=== PATIENT | female | born 1930 | race American Indian/Alaskan Native ===

== ENCOUNTER 2019-03-06 05:34 | Inpatient (IN) | payer MEDICARE ==
[2019-03-06] MEDS ORDERED: NACL 0.9% 1000 ML 0 ML ONE (09:31)
--- NOTE | 2019-03-06 09:59 | Emergency Department Report ---
ED General Adult HPI - General Chief complaint: Wound/Laceration Stated complaint: BEDSORES Time Seen by Provider: 03/06/19 08:33 Source: family, EMS Mode of arrival: Stretcher Limitations: Physical Limitation - History of Present Illness Initial comments: Patient presents to the emergency department for evaluation of bed sores. The patient's daughter states that mother's bed sores are becoming increasingly worse and was told to come to the emergency department for evaluation by their physician. Patient complains of pain at the area of the decubitus ulcers. Per the patient's daughter there is drainage from the decubitus ulcers -: Gradual Location: buttocks Radiation: non-radiation Severity scale (0 -10): 5 Quality: aching Consistency: constant Improves with: none Worsens with: none Associated Symptoms: denies other symptoms Treatments Prior to Arrival: none - Related Data Allergies Allergy/AdvReac Type Severity Reaction Status Date / Time No Known Allergies Allergy Verified 03/06/19 05:36 ED Review of Systems ROS: Stated complaint: BEDSORES Other details as noted in HPI Constitutional: denies: chills, fever Eyes: denies: eye pain, eye discharge, vision change ENT: denies: ear pain, throat pain Respiratory: denies: cough, shortness of breath, wheezing Cardiovascular: denies: chest pain, palpitations Endocrine: no symptoms reported Gastrointestinal: denies: abdominal pain, nausea, diarrhea Genitourinary: denies: urgency, dysuria, discharge Musculoskeletal: denies: back pain, joint swelling, arthralgia Skin: lesions. denies: rash Neurological: denies: headache, weakness, paresthesias Psychiatric: denies: anxiety, depression Hematological/Lymphatic: denies: easy bleeding, easy bruising ED Past Medical Hx - Past Medical History Previous Medical History?: Yes Hx Arthritis: Yes Hx Seizures: Yes Hx Dementia: Yes Additional medical history: Anxiety - Surgical History Past Surgical History?: Yes Additional Surgical History: Hip replacement. Knee replacement. Gal bladder removed - Social History Smoking Status: Never Smoker Substance Use Type: None ED Physical Exam - General Limitations: Physical Limitation General appearance: alert, in no apparent distress - Head Head exam: Present: atraumatic, normocephalic - Eye Eye exam: Present: normal appearance - ENT ENT exam: Present: mucous membranes moist - Neck Neck exam: Present: normal inspection - Respiratory Respiratory exam: Present: normal lung sounds bilaterally. Absent: respiratory distress - Cardiovascular Cardiovascular Exam: Present: regular rate, normal rhythm. Absent: systolic murmur, diastolic murmur, rubs, gallop - GI/Abdominal GI/Abdominal exam: Present: soft, normal bowel sounds. Absent: distended, tenderness - Rectal Rectal exam: Present: other (stage II decubitus ulcers of the sacrum with mild surrounding erythema) - Extremities Exam Extremities exam: Present: normal inspection - Back Exam Back exam: Present: normal inspection - Neurological Exam Neurological exam: Present: alert, oriented X3 - Psychiatric Psychiatric exam: Present: normal affect, normal mood - Skin Skin exam: Present: warm, dry. Absent: rash ED Course Vital Signs 03/06/19 03/06/19 03/06/19 05:58 07:15 10:55 Temperature 98.2 F Pulse Rate 79 80 Respiratory 16 16 16 Rate Blood Pressure 107/60 104/45 [Left] O2 Sat by Pulse 99 100 100 Oximetry ED Medical Decision Making - Lab Data Result diagrams: 03/06/19 09:44 03/06/19 09:44 Lab Results 03/06/19 03/06/19 03/06/19 Range/Units 09:44 09:44 09:44 WBC 15.4 H (4.5-11.0) K/mm3 RBC 4.00 (3.65-5.03) M/mm3 Hgb 11.1 (10.1-14.3) gm/dl Hct 33.8 (30.3-42.9) % MCV 85 (79-97) fl MCH 28 (28-32) pg MCHC 33 (30-34) % RDW 13.5 (13.2-15.2) % Plt Count 329 (140-440) K/mm3 Add Manual Diff Complete Total Counted 100 Seg Neuts % (Manual) 77.0 H (40.0-70.0) % Band Neutrophils % 0 % Lymphocytes % (Manual) 18.0 (13.4-35.0) % Reactive Lymphs % (Man) 0 % Monocytes % (Manual) 3.0 (0.0-7.3) % Eosinophils % (Manual) 2.0 (0.0-4.3) % Basophils % (Manual) 0 (0.0-1.8) % Metamyelocytes % 0 % Myelocytes % 0 % Promyelocytes % 0 % Blast Cells % 0 % Nucleated RBC % Not Reportable Seg Neutrophils # Man 11.9 H (1.8-7.7) K/mm3 Band Neutrophils # 0.0 K/mm3 Lymphocytes # (Manual) 2.8 (1.2-5.4) K/mm3 Abs React Lymphs (Man) 0.0 K/mm3 Monocytes # (Manual) 0.5 (0.0-0.8) K/mm3 Eosinophils # (Manual) 0.3 (0.0-0.4) K/mm3 Basophils # (Manual) 0.0 (0.0-0.1) K/mm3 Metamyelocytes # 0.0 K/mm3 Myelocytes # 0.0 K/mm3 Promyelocytes # 0.0 K/mm3 Blast Cells # 0.0 K/mm3 WBC Morphology Not Reportable Hypersegmented Neuts Not Reportable Hyposegmented Neuts Not Reportable Hypogranular Neuts Not Reportable Smudge Cells Not Reportable Toxic Granulation Not Reportable Toxic Vacuolation Not Reportable Dohle Bodies Not Reportable Pelger-Huet Anomaly Not Reportable Edy Rods Not Reportable Platelet Estimate Consistent w auto Clumped Platelets Not Reportable Plt Clumps, EDTA Not Reportable Large Platelets Rare Giant Platelets Not Reportable Platelet Satelliting Not Reportable Plt Morphology Comment Not Reportable RBC Morphology Normal Dimorphic RBCs Not Reportable Polychromasia Not Reportable Hypochromasia Not Reportable Poikilocytosis Not Reportable Anisocytosis Not Reportable Microcytosis Not Reportable Macrocytosis Not Reportable Spherocytes Not Reportable Pappenheimer Bodies Not Reportable Sickle Cells Not Reportable Target Cells Not Reportable Tear Drop Cells Not Reportable Ovalocytes Not Reportable Helmet Cells Not Reportable [place] Bodies Not Reportable [place] Rings Not Reportable Devin Cells Not Reportable Bite Cells Not Reportable Crenated Cell Not Reportable Elliptocytes Not Reportable Acanthocytes (Spur) Not Reportable Rouleaux Not Reportable Hemoglobin C Crystals Not Reportable Schistocytes Not Reportable Malaria parasites Not Reportable Jose Alberto Bodies Not Reportable Hem Pathologist Commnt No APTT 25.2 (24.2-36.6) Sec. Sodium 135 L (137-145) mmol/L Potassium 3.6 (3.6-5.0) mmol/L Chloride 97.7 L (98-107) mmol/L Carbon Dioxide 26 (22-30) mmol/L Anion Gap 15 mmol/L BUN 8 (7-17) mg/dL Creatinine < 0.2 L (0.7-1.2) mg/dL Estimated GFR > 60 ml/min BUN/Creatinine Ratio 40 % Glucose 114 H (65-100) mg/dL Lactic Acid (0.7-2.0) mmol/L Calcium 8.8 (8.4-10.2) mg/dL Total Bilirubin 0.20 (0.1-1.2) mg/dL AST 14 (5-40) units/L ALT 7 (7-56) units/L Alkaline Phosphatase 62 (35-129) units/L Total Protein 6.6 (6.3-8.2) g/dL Albumin 2.6 L (3.9-5) g/dL Albumin/Globulin Ratio 0.7 % Urine Color (Yellow) Urine Turbidity (Clear) Urine pH (5.0-7.0) Ur Specific [place] (1.003-1.030) Urine Protein (Negative) mg/dL Urine Glucose (UA) (Negative) mg/dL Urine Ketones (Negative) mg/dL Urine Blood (Negative) Urine Nitrite (Negative) Urine Bilirubin (Negative) Urine Urobilinogen (<2.0) mg/dL Ur Leukocyte Esterase (Negative) Urine WBC (Auto) (0.0-6.0) /HPF Urine RBC (Auto) (0.0-6.0) /HPF U Epithel Cells (Auto) (0-13.0) /HPF Urine Bacteria (Auto) (Negative) /HPF Triple Phos Crystals 03/06/19 03/06/19 Range/Units 09:44 10:32 WBC (4.5-11.0) K/mm3 RBC (3.65-5.03) M/mm3 Hgb (10.1-14.3) gm/dl Hct (30.3-42.9) % MCV (79-97) fl MCH (28-32) pg MCHC (30-34) % RDW (13.2-15.2) % Plt Count (140-440) K/mm3 Add Manual Diff Total Counted Seg Neuts % (Manual) (40.0-70.0) % Band Neutrophils % % Lymphocytes % (Manual) (13.4-35.0) % Reactive Lymphs % (Man) % Monocytes % (Manual) (0.0-7.3) % Eosinophils % (Manual) (0.0-4.3) % Basophils % (Manual) (0.0-1.8) % Metamyelocytes % % Myelocytes % % Promyelocytes % % Blast Cells % % Nucleated RBC % Seg Neutrophils # Man (1.8-7.7) K/mm3 Band Neutrophils # K/mm3 Lymphocytes # (Manual) (1.2-5.4) K/mm3 Abs React Lymphs (Man) K/mm3 Monocytes # (Manual) (0.0-0.8) K/mm3 Eosinophils # (Manual) (0.0-0.4) K/mm3 Basophils # (Manual) (0.0-0.1) K/mm3 Metamyelocytes # K/mm3 Myelocytes # K/mm3 Promyelocytes # K/mm3 Blast Cells # K/mm3 WBC Morphology Hypersegmented Neuts Hyposegmented Neuts Hypogranular Neuts Smudge Cells Toxic Granulation Toxic Vacuolation Dohle Bodies Pelger-Huet Anomaly Edy Rods Platelet Estimate Clumped Platelets Plt Clumps, EDTA Large Platelets Giant Platelets Platelet Satelliting Plt Morphology Comment RBC Morphology Dimorphic RBCs Polychromasia Hypochromasia Poikilocytosis Anisocytosis Microcytosis Macrocytosis Spherocytes Pappenheimer Bodies Sickle Cells Target Cells Tear Drop Cells Ovalocytes Helmet Cells [place] Bodies [place] Rings Devin Cells Bite Cells Crenated Cell Elliptocytes Acanthocytes (Spur) Rouleaux Hemoglobin C Crystals Schistocytes Malaria parasites Jose Alberto Bodies Hem Pathologist Commnt APTT (24.2-36.6) Sec. Sodium (137-145) mmol/L Potassium (3.6-5.0) mmol/L Chloride (98-107) mmol/L Carbon Dioxide (22-30) mmol/L Anion Gap mmol/L BUN (7-17) mg/dL Creatinine (0.7-1.2) mg/dL Estimated GFR ml/min BUN/Creatinine Ratio % Glucose (65-100) mg/dL Lactic Acid 1.90 (0.7-2.0) mmol/L Calcium (8.4-10.2) mg/dL Total Bilirubin (0.1-1.2) mg/dL AST (5-40) units/L ALT (7-56) units/L Alkaline Phosphatase (35-129) units/L Total Protein (6.3-8.2) g/dL Albumin (3.9-5) g/dL Albumin/Globulin Ratio % Urine Color Yellow (Yellow) Urine Turbidity Cloudy (Clear) Urine pH 9.0 H (5.0-7.0) Ur Specific [place] 1.012 (1.003-1.030) Urine Protein <15 mg/dl (Negative) mg/dL Urine Glucose (UA) Neg (Negative) mg/dL Urine Ketones Neg (Negative) mg/dL Urine Blood Neg (Negative) Urine Nitrite Pos (Negative) Urine Bilirubin Neg (Negative) Urine Urobilinogen < 2.0 (<2.0) mg/dL Ur Leukocyte Esterase Lg (Negative) Urine WBC (Auto) 2.0 (0.0-6.0) /HPF Urine RBC (Auto) 1.0 (0.0-6.0) /HPF U Epithel Cells (Auto) < 1.0 (0-13.0) /HPF Urine Bacteria (Auto) 1+ (Negative) /HPF Triple Phos Crystals Few - Medical Decision Making Due to the elevated white count and findings on exam the patient will be admitted Critical care attestation.: If time is entered above; I have spent that time in minutes in the direct care of this critically ill patient, excluding procedure time. ED Disposition Clinical Impression: Cellulitis, Decubitus ulcers Disposition: OP ADMIT IP TO THIS HOSP Is pt being admited?: Yes Does the pt Need Aspirin: No Condition: Fair
[2019-03-06] MEDS ORDERED: ANCEF ONE (10:24)
[2019-03-06 10:26] LABS: Hematocrit 33.8 % (30.3-42.9); Hemoglobin 11.1 gm/dl (10.1-14.3); Mean Corpuscular HGB Conc 33 % (30-34); Mean Corpuscular Volume 85 fl (79-97); Red Cell Distribution Width 13.5 % (13.2-15.2)
[2019-03-06] MEDS ORDERED: ceFAZolin 2 GM in NACL 0.9% 100 ML IV SCH (10:30)
[2019-03-06 10:39] LABS: Alanine Aminotransferase 7 units/L (7-56); Albumin 2.6 g/dL (3.9-5); BUN/Creatinine Ratio 40; Blood Urea Nitrogen 8 mg/dL (7-17); Calcium 8.8 mg/dL (8.4-10.2); Hemolysis Index 11
[2019-03-06 11:02] LABS: Bacteria,Urine 1+ /HPF (Negative); Bilirubin,Urine NEG (Negative); Blood,Urine NEG (Negative); Color,Urine Yellow (Yellow); Protein,Urine <15 mg/dL mg/dL (Negative); Triple Phosphate Crystal,Urine FEW; Urobilinogen,Urine < 2.0 mg/dL (<2.0)
[2019-03-06 11:38] LABS: Basophils % (Manual) 0 % (0.0-1.8); Total Cells Counted 100
[2019-03-06 11:39] LABS: Large Platelets Rare; Platelet Count 329 K/mm3 (140-440); Platelet Estimate Consistent w Auto; RBC Morphology Normal
[2019-03-06] MEDS ORDERED: NACL 0.9% 1000 ML 2,000 ML ONE (11:50)
[2019-03-06] MEDS ORDERED: NACL 0.9% 1000 ML 1,000 ML IV ONE ×2 (12:06→12:07)
[2019-03-06] MEDS ORDERED: SODIUM CHLORIDE FLUSH SYRINGE 10 ML IV PRN (21:08)
[2019-03-06] MEDS ORDERED: TYLENOL PO PRN (21:08)
[2019-03-06] MEDS ORDERED: ZOFRAN IV PRN (21:08)
[2019-03-06] MEDS ORDERED: DILAUDID IV PRN (21:08)
--- NOTE | 2019-03-06 21:14 | History and Physical Report ---
History of Present Illness Date of examination: 03/06/19 Date of admission: 03/06/19 11:57 Chief complaint: Worsening sacral decubitus ulcer History of present illness: 88-year-old -[place] female with history of seizures on hospice brought in by her son for worsening sacral decubitus ulcer. Patient was asked to go to the emergency room by the primary care physician. Patient has a lot of pain secondary to the ulcer. No fever or chills. Pain is about 8 on scale of 1-10. Patient also has a low drainage from the sacral wound. Patient is on home hospi ce which was revoked. Patient also has small ulcers and erosions on the right knee and right rib cage left buttocks and left breasts. Past Medical History Previous Medical History?: Yes Arthritis: Yes Seizures: Yes Dementia: Yes Additional medical history: Anxiety Surgical History Past Surgical History?: Yes Additional Surgical History: Hip replacement. Knee replacement. Gal bladder removed Family history no significant Social History Smoking Status: Never Smoker Substance Use Type: None Review of Systems ROS: Stated complaint: BEDSORES Other details as noted in HPI Constitutional: denies: chills, fever Eyes: denies: eye pain, eye discharge, vision change ENT: denies: ear pain, throat pain Respiratory: denies: cough, shortness of breath, wheezing Cardiovascular: denies: chest pain, palpitations Endocrine: no symptoms reported Gastrointestinal: denies: abdominal pain, nausea, diarrhea Genitourinary: denies: urgency, dysuria, discharge Musculoskeletal: denies: back pain, joint swelling, arthralgia Skin: lesions. denies: rash Neurological: denies: headache, weakness, paresthesias Psychiatric: denies: anxiety, depression Hematological/Lymphatic: denies: easy bleeding, easy bruising Medications and Allergies Allergies Allergy/AdvReac Type Severity Reaction Status Date / Time No Known Allergies Allergy Verified 03/06/19 05:36 Home Medications Medication Instructions Recorded Confirmed Last Taken Type HYDROcodone/APAP 7.5-325 [[place] 7.5 - 325 mg PO Q6H 03/06/19 03/06/19 03/05/19 History 7.5-325 mg TAB] LORazepam [Ativan] 1 mg PO QDAY 03/06/19 03/06/19 03/05/19 History Melatonin [Melatonin 10MG TAB] 10 mg PO QHS 0703/06/19 03/05/19 History Potassium Chloride [K-Dur] 10 meq PO QDAY 03/06/19 03/06/19 03/05/19 History Temazepam [Restoril] 15 mg PO QHS PRN 03/06/19 03/06/19 Unknown History levETIRAcetam [Keppra TAB] 1,000 mg PO QDAY 03/06/19 03/06/19 03/05/19 History Active Meds: Active Medications Cefazolin Sodium 2 gm/ Sodium (Chloride) 100 mls @ 200 mls/hr IV Q8HR [facility]; Protocol Last Admin: 03/06/19 11:09 Dose: 200 mls/hr Documented by: Exam - Constitutional Vitals: Temp Pulse Resp BP Pulse Ox 98.1 F 90 20 102/48 99 03/06/19 19:37 03/06/19 19:37 03/06/19 19:37 03/06/19 19:37 03/06/19 19:37 General appearance: Present: no acute distress, well-nourished - EENT Eyes: Present: PERRL ENT: hearing intact, clear oral mucosa - Neck Neck: Present: supple, normal ROM - Respiratory Respiratory effort: normal Respiratory: bilateral: CTA - Cardiovascular Heart rate: 78 Rhythm: regular Heart Sounds: Present: S1 & S2. Absent: rub, click - Extremities Extremities: pulses symmetrical, No edema Peripheral Pulses: within normal limits - Abdominal General gastrointestinal: Present: soft, non-tender, non-distended, normal bowel sounds Female genitourinary: Present: normal - Integumentary Integumentary: Present: clear, warm, dry - Musculoskeletal Musculoskeletal: gait normal, strength equal bilaterally - Psychiatric Psychiatric: appropriate mood/affect, intact judgment & insight - Neurologic Neurologic: CNII-XII intact, moves all extremities Results - Labs CBC & Chem 7: 03/06/19 09:44 03/06/19 09:44 Labs: Laboratory Last Values WBC 15.4 K/mm3 (4.5-11.0) H 03/06/19 09:44 RBC 4.00 M/mm3 (3.65-5.03) 03/06/19 09:44 Hgb 11.1 gm/dl (10.1-14.3) 03/06/19 09:44 Hct 33.8 % (30.3-42.9) 03/06/19 09:44 MCV 85 fl (79-97) 03/06/19 09:44 MCH 28 pg (28-32) 03/06/19 09:44 MCHC 33 % (30-34) 03/06/19 09:44 RDW 13.5 % (13.2-15.2) 03/06/19 09:44 Plt Count 329 K/mm3 (140-440) 03/06/19 09:44 Add Manual Diff Complete 03/06/19 09:44 Total Counted 100 03/06/19 09:44 Seg Neuts % (Manual) 77.0 % (40.0-70.0) H 03/06/19 09:44 0 % 03/06/19 09:44 18.0 % (13.4-35.0) 03/06/19 09:44 Reactive Lymphs % (Man) 0 % 03/06/19 09:44 3.0 % (0.0-7.3) 03/06/19 09:44 2.0 % (0.0-4.3) 03/06/19 09:44 0 % (0.0-1.8) 03/06/19 09:44 0 % 03/06/19 09:44 0 % 03/06/19 09:44 0 % 03/06/19 09:44 0 % 03/06/19 09:44 Nucleated RBC % Not Reportable 03/06/19 09:44 Seg Neutrophils # Man 11.9 K/mm3 (1.8-7.7) H 03/06/19 09:44 Band Neutrophils # 0.0 K/mm3 03/06/19 09:44 2.8 K/mm3 (1.2-5.4) 19 09:44 Abs React Lymphs (Man) 0.0 K/mm3 03/06/19 09:44 0.5 K/mm3 (0.0-0.8) 03/06/19 09:44 0.3 K/mm3 (0.0-0.4) 03/06/19 09:44 0.0 K/mm3 (0.0-0.1) 03/06/19 09:44 0.0 K/mm3 03/06/19 09:44 0.0 K/mm3 03/06/19 09:44 0.0 K/mm3 03/06/19 09:44 Blast Cells # 0.0 K/mm3 03/06/19 09:44 WBC Morphology Not Reportable 03/06/19 09:44 Hypersegmented Neuts Not Reportable 03/06/19 09:44 Hyposegmented Neuts Not Reportable 03/06/19 09:44 Hypogranular Neuts Not Reportable 03/06/19 09:44 Not Reportable 03/06/19 09:44 Not Reportable 03/06/19 09:44 Not Reportable 03/06/19 09:44 Not Reportable 03/06/19 09:44 Not Reportable 03/06/19 09:44 Not Reportable 03/06/19 09:44 Consistent w auto 03/06/19 09:44 Not Reportable 03/06/19 09:44 Plt Clumps, EDTA Not Reportable 03/06/19 09:44 Rare 03/06/19 09:44 Not Reportable 03/06/19 09:44 Not Reportable 03/06/19 09:44 Plt Morphology Comment Not Reportable 03/06/19 09:44 RBC Morphology Normal 03/06/19 09:44 Dimorphic RBCs Not Reportable 03/06/19 09:44 Not Reportable 03/06/19 09:44 Not Reportable 03/06/19 09:44 Not Reportable 03/06/19 09:44 Not Reportable 03/06/19 09:44 Not Reportable 03/06/19 09:44 Not Reportable 03/06/19 09:44 Not Reportable 03/06/19 09:44 Not Reportable 03/06/19 09:44 Not Reportable 03/06/19 09:44 Not Reportable 03/06/19 09:44 Not Reportable 03/06/19 09:44 Not Reportable 03/06/19 09:44 Not Reportable 03/06/19 09:44 Not Reportable 03/06/19 09:44 Not Reportable 03/06/19 09:44 Not Reportable 03/06/19 09:44 Not Reportable 03/06/19 09:44 Not Reportable 03/06/19 09:44 Not Reportable 03/06/19 09:44 Acanthocytes (Spur) Not Reportable 03/06/19 09:44 Rouleaux Not Reportable 03/06/19 09:44 Not Reportable 03/06/19 09:44 Not Reportable 03/06/19 09:44 Not Reportable 03/06/19 09:44 Not Reportable 03/06/19 09:44 Hem Pathologist Commnt No 03/06/19 09:44 APTT 25.2 Sec. (24.2-36.6) 03/06/19 09:44 Sodium 135 mmol/L (137-145) L 03/06/19 09:44 Potassium 3.6 mmol/L (3.6-5.0) 03/06/19 09:44 Chloride 97.7 mmol/L (98-107) L 03/06/19 09:44 Carbon Dioxide 26 mmol/L (22-30) 03/06/19 09:44 15 mmol/L 03/06/19 09:44 BUN 8 mg/dL (7-17) 03/06/19 09:44 < 0.2 mg/dL (0.7-1.2) L 03/06/19 09:44 Estimated GFR > 60 ml/min 03/06/19 09:44 40 % 03/06/19 09:44 Glucose 114 mg/dL (65-100) H 03/06/19 09:44 Lactic Acid 1.50 mmol/L (0.7-2.0) 03/06/19 16:53 Calcium 8.8 mg/dL (8.4-10.2) 03/06/19 09:44 0.20 mg/dL (0.1-1.2) 03/06/19 09:44 AST 14 units/L (5-40) 03/06/19 09:44 ALT 7 units/L (7-56) 03/06/19 09:44 62 units/L (35-129) 03/06/19 09:44 6.6 g/dL (6.3-8.2) 03/06/19 09:44 2.6 g/dL (3.9-5) L 03/06/19 09:44 0.7 % 03/06/19 09:44 Yellow (Yellow) 03/06/19 10:32 Cloudy (Clear) 03/06/19 10:32 9.0 (5.0-7.0) H 03/06/19 10:32 Ur Specific [place] 1.012 (1.003-1.030) 03/06/19 10:32 <15 mg/dl mg/dL (Negative) 03/06/19 10:32 Neg mg/dL (Negative) 03/06/19 10:32 Neg mg/dL (Negative) 03/06/19 10:32 Neg (Negative) 03/06/19 10:32 Pos (Negative) 03/06/19 10:32 Neg (Negative) 03/06/19 10:32 < 2.0 mg/dL (<2.0) 03/06/19 10:32 Ur Leukocyte Esterase Lg (Negative) 03/06/19 10:32 2.0 /HPF (0.0-6.0) 03/06/19 10:32 1.0 /HPF (0.0-6.0) 03/06/19 10:32 U Epithel Cells (Auto) < 1.0 /HPF (0-13.0) 03/06/19 10:32 1+ /HPF (Negative) 03/06/19 10:32 Triple Phos Crystals Few 03/06/19 10:32 Short CBC 03/06/19 Range/Units 09:44 WBC 15.4 H (4.5-11.0) K/mm3 Hgb 11.1 (10.1-14.3) gm/dl Hct 33.8 (30.3-42.9) % Plt Count 329 (140-440) K/mm3 BMP 03/06/19 09:44 Sodium 135 L Potassium 3.6 Chloride 97.7 L Carbon Dioxide 26 BUN 8 Creatinine < 0.2 L Glucose 114 H Calcium 8.8 Liver Function 03/06/19 Range/Units 09:44 Total Bilirubin 0.20 (0.1-1.2) mg/dL AST 14 (5-40) units/L ALT 7 (7-56) units/L Alkaline Phosphatase 62 (35-129) units/L Albumin 2.6 L (3.9-5) g/dL Urine 03/06/19 Range/Units 10:32 Urine Color Yellow (Yellow) Urine pH 9.0 H (5.0-7.0) Ur Specific [place] 1.012 (1.003-1.030) Urine Protein <15 mg/dl (Negative) mg/dL Urine Glucose (UA) Neg (Negative) mg/dL Assessment and Plan Advance Directives: Yes (full code) VTE prophylaxis?: Chemical Plan of care discussed with patient/family: Yes - Patient Problems (1) SIRS (systemic inflammatory response syndrome) Current Visit: Yes Status: Acute Plan to address problem: Patient has elevated leukocytosis and elevated lactic acid Consistent with SIRS (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 Purulent discharge coming out. Tenderness present. Patient needs debridement IV Unasyn and IV vancomycin started Patient also has decubitus ulcers on the right knee left buttock and left breasts and right rib cage which is superficial and stage I. Wound care. Consult requested. (3) Seizure disorder Current Visit: Yes Status: Chronic Plan to address problem: Continue Keppra. (4) Arthritis Current Visit: Yes Status: Chronic Plan to address problem: Analgesics when necessary. (5) Advance care planning Current Visit: Yes Status: Acute Plan to address problem: Hospice care walked. (6) Malnutrition Current Visit: Yes Status: Acute Qualifiers: Protein-calorie malnutrition severity: moderate Plan to address problem: Patient needs dietitian consult (7) DVT prophylaxis Current Visit: Yes Status: Acute Plan to address problem: On Lovenox and GI prophylaxis
[2019-03-06] MEDS: NACL 0.9% 1000 ML 1,000 ML IV SCH (21:40)
[2019-03-06] MEDS: ATIVAN PO SCH (21:41)
[2019-03-06] MEDS: KEPPRA PO SCH (21:41)
[2019-03-06] MEDS: MELATONIN PO SCH (21:42)
[2019-03-06] MEDS: SODIUM CHLORIDE FLUSH SYRINGE 10 ML IV SCH (21:43)
[2019-03-06] MEDS ORDERED: VANCOMYCIN PHARMACY TO DOSE IV SCH (22:00)
[2019-03-06] MEDS ORDERED: PEPCID PO SCH (22:00)
[2019-03-06] MEDS ORDERED: VANCOMYCIN/NS 1 GM/250 ML 1 GM/250 ML BAG IV ONE (22:00)
[2019-03-06] MEDS ORDERED: MELATONIN 10 MG PO SCH (22:00)
[2019-03-06] MEDS: UNASYN/NS 3 GM/100 ML 3 GM/100 ML BAG IV SCH (23:34)
[2019-03-07 05:37] LABS: Basophils # (Auto) 0.1 K/mm3 (0.0-0.1); Basophils % (Auto) 1.2 % (0.0-1.8); Eosinophils # (Auto) 0.2 K/mm3 (0.0-0.4); Eosinophils % (Auto) 2.2 % (0.0-4.3); Hematocrit 34.3 % (30.3-42.9); Hemoglobin 11.6 gm/dl (10.1-14.3); Lymphocytes # (Auto) 2.2 K/mm3 (1.2-5.4); Lymphocytes % (Auto) 25.1 % (13.4-35.0); Mean Corpuscular HGB Conc 34 % (30-34); Mean Corpuscular Volume 85 fl (79-97); Monocytes # (Auto) 0.6 K/mm3 (0.0-0.8); Monocytes % (Auto) 6.6 % (0.0-7.3); Platelet Count 268 K/mm3 (140-440); Red Blood Count 4.06 M/mm3 (3.65-5.03); Red Cell Distribution Width 13.7 % (13.2-15.2)
[2019-03-07 05:41] LABS: Alanine Aminotransferase 5 units/L (7-56); Albumin 2.2 g/dL (3.9-5); BUN/Creatinine Ratio 30; Blood Urea Nitrogen 6 mg/dL (7-17); Calcium 8.2 mg/dL (8.4-10.2); Hemolysis Index 14
[2019-03-07] MEDS: UNASYN/NS 3 GM/100 ML 3 GM/100 ML BAG IV SCH ×2 (06:26→22:26)
[2019-03-07] MEDS ORDERED: PERCOCET 5/325 PO PRN (09:24)
[2019-03-07] MEDS ORDERED: XYLOCAINE TOPICAL 4% TP ONE (10:43)
[2019-03-07] MEDS: SODIUM CHLORIDE FLUSH SYRINGE 10 ML IV SCH ×2 (10:45→22:16)
[2019-03-07] MEDS: PEPCID PO SCH (10:46)
[2019-03-07] MEDS: KEPPRA PO SCH ×2 (10:46→22:11)
--- NOTE | 2019-03-07 11:20 | Consultation ---
History of Present Illness Consult date: 03/07/19 Chief complaint: wounds - History of present illness History of present illness: 88 yo F with dementia, bedbound presented to hospital for evaluation of pressure wounds on various parts of her body. Her daughter is at bedside and her primary customer expert. The patient is currently on hospice but daughter wants her taken off. She was concerned especially with the sacral area which she states was draining infected looking fluid. The wound has gotten worse over the past 3 weeks. The patient often prefers to lay on her back and although family is turning her, she does not like to stay on her side. Her diet consists mainly of protein supplements and smoothies. She has a hospital bed at home but no speciality mattress. She also has a wound on her left knee, left breast and right lower rib cage area. No f/c. Past History Past Medical History: other (dementia) Social history: other (on hospice) Medications and Allergies Allergies Allergy/AdvReac Type Severity Reaction Status Date / Time No Known Allergies Allergy Verified 03/06/19 05:36 Home Medications Medication Instructions Recorded Confirmed Last Taken Type HYDROcodone/APAP 7.5-325 [[place] 7.5 - 325 mg PO Q6H 03/06/19 03/06/19 03/05/19 History 7.5-325 mg TAB] LORazepam [Ativan] 1 mg PO QDAY 03/06/19 03/06/19 03/05/19 History Melatonin [Melatonin 10MG TAB] 10 mg PO QHS 03/06/19 03/06/19 03/05/19 History Potassium Chloride [K-Dur] 10 meq PO QDAY 03/06/19 03/06/19 03/05/19 History Temazepam [Restoril] 15 mg PO QHS PRN 03/06/19 03/06/19 Unknown History levETIRAcetam [Keppra TAB] 1,000 mg PO QDAY 03/06/19 03/06/19 03/05/19 History Active Meds: Active Medications Acetaminophen (Tylenol) 650 mg PO Q4H PRN PRN Reason: Pain MILD(1-3)/Fever >100.5/GASTELUM Famotidine (Pepcid) 20 mg PO DAILY DHAVAL Last Admin: 03/07/19 10:46 Dose: 20 mg Documented by: Sodium Chloride (Nacl 0.9% 1000 Ml) 1,000 mls @ 75 mls/hr IV DIRECT [facility] Last Admin: 03/06/19 21:40 Dose: 75 mls/hr Documented by: Vancomycin HCl 750 mg/ Sodium (Chloride) 265 mls @ 166.667 mls/hr IV Q24H [facility] Ampicillin Sodium/Sulbactam Sodium (Unasyn/Ns 3 Gm/100 Ml) 3 gm in 100 mls @ 100 mls/hr IV Q12HR [facility]; Protocol Levetiracetam (Keppra) 500 mg PO Q12H [facility] Last Admin: 03/07/19 10:46 Dose: 500 mg Documented by: Lorazepam (Ativan) 1 mg PO QHS [facility] Last Admin: 03/06/19 21:41 Dose: 1 mg Documented by: Melatonin (Melatonin) 10 mg PO QHS [facility] Last Admin: 03/06/19 21:42 Dose: 10 mg Documented by: Ondansetron HCl (Zofran) 4 mg IV Q8H PRN PRN Reason: Nausea And Vomiting Oxycodone/Acetaminophen (Percocet 5/325) 1 tab PO Q4H PRN PRN Reason: Pain, Moderate (4-6) Sodium Chloride (Sodium Chloride Flush Syringe 10 Ml) 10 ml IV BID [facility] Last Admin: 03/06/19 21:43 Dose: 10 ml Documented by: Sodium Chloride (Sodium Chloride Flush Syringe 10 Ml) 10 ml IV PRN PRN PRN Reason: LINE FLUSH Review of Systems ROS unobtainable: due to mental status Exam Vital Signs Resp Pulse Ox 16 99 03/06/19 05:58 03/06/19 05:58 Narrative exam: Gen: Awake and alert. NAD CV: s1, S2+ Resp: even and unlabored Abd: soft, NT, ND Ext: contracted. L knee with 1 cm wound with some slough on wound bed, no erythema or signs of infection Sacrum - unstageable sacral wound with necrotic tissue at the center. No drainage. No odor. No erythema. Periwound skin - stage 1 wound. Evidence of m ultiple healing cycles Skin: L breast with stage 2 wound, clean base, no signs of infection. R rib cage with stage 2 wound, some adherent slough but otherwise clean and no signs of infection. Results - Labs 03/07/19 04:50 03/07/19 04:58 Abnormal lab results 03/06/19 03/06/19 03/07/19 Range/Units 09:44 12:22 04:58 Seg Neuts % (Manual) 77.0 H (40.0-70.0) % Seg Neutrophils # Man 11.9 H (1.8-7.7) K/mm3 Potassium 3.5 L (3.6-5.0) mmol/L BUN 6 L (7-17) mg/dL Creatinine < 0.2 L (0.7-1.2) mg/dL Lactic Acid 2.20 H* (0.7-2.0) mmol/L Calcium 8.2 L (8.4-10.2) mg/dL ALT 5 L (7-56) units/L Total Protein 6.1 L (6.3-8.2) g/dL Albumin 2.2 L (3.9-5) g/dL Diabetes panel 03/06/19 03/07/19 Range/Units 21:16 04:58 Sodium 138 (137-145) mmol/L Potassium 3.5 L (3.6-5.0) mmol/L Chloride 103.7 (98-107) mmol/L Carbon Dioxide 25 (22-30) mmol/L BUN 6 L (7-17) mg/dL Creatinine < 0.2 L (0.7-1.2) mg/dL Glucose 89 (65-100) mg/dL Hemoglobin A1c 5.8 (4-6) % Calcium 8.2 L (8.4-10.2) mg/dL AST 13 (5-40) units/L ALT 5 L (7-56) units/L Alkaline Phosphatase 58 (35-129) units/L Total Protein 6.1 L (6.3-8.2) g/dL Albumin 2.2 L (3.9-5) g/dL Calcium panel 03/07/19 Range/Units 04:58 Calcium 8.2 L (8.4-10.2) mg/dL Albumin 2.2 L (3.9-5) g/dL Pituitary panel 03/07/19 Range/Units 04:58 Sodium 138 (137-145) mmol/L Potassium 3.5 L (3.6-5.0) mmol/L Chloride 103.7 (98-107) mmol/L Carbon Dioxide 25 (22-30) mmol/L BUN 6 L (7-17) mg/dL Creatinine < 0.2 L (0.7-1.2) mg/dL Glucose 89 (65-100) mg/dL Calcium 8.2 L (8.4-10.2) mg/dL Adrenal panel 03/07/19 Range/Units 04:58 Sodium 138 (137-145) mmol/L Potassium 3.5 L (3.6-5.0) mmol/L Chloride 103.7 (98-107) mmol/L Carbon Dioxide 25 (22-30) mmol/L BUN 6 L (7-17) mg/dL Creatinine < 0.2 L (0.7-1.2) mg/dL Glucose 89 (65-100) mg/dL Calcium 8.2 L (8.4-10.2) mg/dL Total Bilirubin 0.20 (0.1-1.2) mg/dL AST 13 (5-40) units/L ALT 5 L (7-56) units/L Alkaline Phosphatase 58 (35-129) units/L Total Protein 6.1 L (6.3-8.2) g/dL Albumin 2.2 L (3.9-5) g/dL Assessment and Plan 88 yo F with multiple pressure wounds Plan: 1. check prealbumin 2. continue to optimize nutrition, protein supplements 3. case management consult for home care and to look into low air loss mattress for home 4. would recommend debridement of necrotic tissue of sacral wound - discussed with daughter and consent obtained 5. calcium alginate to all other wounds and foam dressing 6. offloading 7. Explained the importance of nutrition and offloading to daughter. Unfortunately, with the patient's bedbound status, contractures, etc it is likely that the wounds, especially in sacral area will recur. She understands 8. will set up wound care clinic follow up on dc 9. will obtain wound cultures during debridement Thank you, please call with questions.
--- NOTE | 2019-03-07 12:42 | Procedure Note ---
Date of procedure: 03/07/19 Pre-op diagnosis: necrotic sacral wound Post-op diagnosis: same Procedure: excisional debridement of unstageable sacral wound Findings: Time out performed. 4% topical lidocaine applied to wound bed for 5 minutes. The skin was prepped with betadine. The necrotic tissue was sharply excised using foreceps, scissors, and a 15 blade. The wound is stage 3. There was no drainage or odor. No bone visible. Minimal bleeding, controlled with pressure. There was slough at the wound base. Wound cleansed and packed with one piece of calcium alginate. Covered with sacral foam dressing. Measurements: 2cm x2cm x 1cm Pt tolerated the procedure well and all sharps disposed of appropriately. Nurse present for entire procedure. Anesthesia: local Surgeon: PAULO HOUSTON Estimated blood loss: minimal Pathology: none Condition: stable Disposition: no change
--- NOTE | 2019-03-07 12:53 | Progress Note ---
Assessment and Plan Assessment and plan: 1) sepsis secondary to infected decubitus ulcer Patient had leukocytosis and elevated lactic acid level which normalized now Continue his antibiotics (2) Decubitus ulcers Patient has stage III ulcer on the sacrum about 4 cm x 3 cm. Purulent discharge coming out. Tenderness present. Gen. surgery consulted for debridement IV Unasyn and IV vancomycin started Patient also has decubitus ulcers on the right knee left buttock and left breasts and right rib cage which is superficial and stage I. Wound care. Consult requested. (3) Seizure disorder Continue Keppra. (4) Arthritis Analgesics when necessary. (5) Advance care planning Patient wants another [employer] for almost present plan was discussed with case management (6) Malnutrition - dietitian consult (7) DVT prophylaxis On Lovenox and GI prophylaxis Disposition; based on clinical course. History Interval history: Patient was seen in divided doses this morning, and is demented. Patient was in pain. Discussed thr management with daughter who was at the bedside during my examination. Hospitalist Physical - Physical exam Narrative exam: Not in cardiopulmonary distress. The patient appeared well nourished and normally developed. Vital signs as documented. Head exam is unremarkable. No scleral icterus . Neck is without jugular venous distension, thyromegaly, or carotid bruits. Lungs are clear to auscultation. Cardiac exam reveals regular rate and Rhythm. Abdominal exam reveals normal bowel sounds, no masses, no organomegaly and no aortic enlargement. Extremities flaccid upper and lower extremities. LOCAL OWNER OPERATOR TRUCK DRIVER: Alert. SKIN; multiple decubitus ulcer. - Constitutional Vitals: Temp Pulse Resp BP Pulse Ox 97.8 F 84 20 106/71 100 03/07/19 08:50 03/07/19 07:51 03/07/19 07:51 03/07/19 07:51 03/07/19 07:51 General appearance: Present: no acute distress, well-nourished Results - Labs CBC & Chem 7: 03/07/19 04:50 03/07/19 04:58 Labs: Laboratory Last Values WBC 8.9 K/mm3 (4.5-11.0) 03/07/19 04:50 RBC 4.06 M/mm3 (3.65-5.03) 03/07/19 04:50 Hgb 11.6 gm/dl (10.1-14.3) 03/07/19 04:50 Hct 34.3 % (30.3-42.9) 03/07/19 04:50 MCV 85 fl (79-97) 03/07/19 04:50 MCH 29 pg (28-32) 03/07/19 04:50 MCHC 34 % (30-34) 03/07/19 04:50 RDW 13.7 % (13.2-15.2) 03/07/19 04:50 Plt Count 268 K/mm3 (140-440) 03/07/19 04:50 Lymph % (Auto) 25.1 % (13.4-35.0) 03/07/19 04:50 [place] % (Auto) 6.6 % (0.0-7.3) 03/07/19 04:50 Eos % (Auto) 2.2 % (0.0-4.3) 03/07/19 04:50 Baso % (Auto) 1.2 % (0.0-1.8) 03/07/19 04:50 Lymph # 2.2 K/mm3 (1.2-5.4) 03/07/19 04:50 [place] # 0.6 K/mm3 (0.0-0.8) 03/07/19 04:50 Eos # 0.2 K/mm3 (0.0-0.4) 03/07/19 04:50 Baso # 0.1 K/mm3 (0.0-0.1) 03/07/19 04:50 Add Manual Diff Complete 03/06/19 09:44 Total Counted 100 03/06/19 09:44 Seg Neutrophils % 64.9 % (40.0-70.0) 03/07/19 04:50 Seg Neuts % (Manual) 77.0 % (40.0-70.0) H 03/06/19 09:44 0 % 03/06/19 09:44 18.0 % (13.4-35.0) 03/06/19 09:44 Reactive Lymphs % (Man) 0 % 03/06/19 09:44 3.0 % (0.0-7.3) 03/06/19 09:44 2.0 % (0.0-4.3) 03/06/19 09:44 0 % (0.0-1.8) 03/06/19 09:44 0 % 03/06/19 09:44 0 % 03/06/19 09:44 0 % 03/06/19 09:44 0 % 03/06/19 09:44 Nucleated RBC % Not Reportable 03/06/19 09:44 Seg Neutrophils # 5.8 K/mm3 (1.8-7.7) 03/07/19 04:50 Seg Neutrophils # Man 11.9 K/mm3 (1.8-7.7) H 03/06/19 09:44 Band Neutrophils # 0.0 K/mm3 03/06/19 09:44 2.8 K/mm3 (1.2-5.4) 03/06/19 09:44 Abs React Lymphs (Man) 0.0 K/mm3 03/06/19 09:44 0.5 K/mm3 (0.0-0.8) 03/06/19 09:44 0.3 K/mm3 (0.0-0.4) 03/06/19 09:44 0.0 K/mm3 (0.0-0.1) 03/06/19 09:44 0.0 K/mm3 03/06/19 09:44 0.0 K/mm3 03/06/19 09:44 0.0 K/mm3 03/06/19 09:44 Blast Cells # 0.0 K/mm3 03/06/19 09:44 WBC Morphology Not Reportable 03/06/19 09:44 Hypersegmented Neuts Not Reportable 03/06/19 09:44 Hyposegmented Neuts Not Reportable 03/06/19 09:44 Hypogranular Neuts Not Reportable 03/06/19 09:44 Not Reportable 03/06/19 09:44 Not Reportable 03/06/19 09:44 Not Reportable 03/06/19 09:44 Not Reportable 03/06/19 09:44 Not Reportable 03/06/19 09:44 Not Reportable 03/06/19 09:44 Consistent w auto 03/06/19 09:44 Not Reportable 03/06/19 09:44 Plt Clumps, EDTA Not Reportable 03/06/19 09:44 Rare 03/06/19 09:44 Not Reportable 03/06/19 09:44 Not Reportable 03/06/19 09:44 Plt Morphology Comment Not Reportable 03/06/19 09:44 RBC Morphology Normal 03/06/19 09:44 Dimorphic RBCs Not Reportable 03/06/19 09:44 Not Reportable 03/06/19 09:44 Not Reportable 03/06/19 09:44 Not Reportable 03/06/19 09:44 Not Reportable 03/06/19 09:44 Not Reportable 03/06/19 09:44 Not Reportable 03/06/19 09:44 Not Reportable 03/06/19 09:44 Not Reportable 03/06/19 09:44 Not Reportable 03/06/19 09:44 Not Reportable 03/06/19 09:44 Not Reportable 03/06/19 09:44 Not Reportable 03/06/19 09:44 Not Reportable 03/06/19 09:44 Not Reportable 03/06/19 09:44 Not Reportable 03/06/19 09:44 Not Reportable 03/06/19 09:44 Not Reportable 03/06/19 09:44 Not Reportable 03/06/19 09:44 Not Reportable 03/06/19 09:44 Acanthocytes (Spur) Not Reportable 03/06/19 09:44 Rouleaux Not Reportable 03/06/19 09:44 Not Reportable 03/06/19 09:44 Not Reportable 03/06/19 09:44 Not Reportable 03/06/19 09:44 Not Reportable 03/06/19 09:44 Hem Pathologist Commnt No 03/06/19 09:44 APTT 25.2 Sec. (24.2-36.6) 03/06/19 09:44 Sodium 138 mmol/L (137-145) 03/07/19 04:58 Potassium 3.5 mmol/L (3.6-5.0) L 03/07/19 04:58 Chloride 103.7 mmol/L (98-107) 03/07/19 04:58 Carbon Dioxide 25 mmol/L (22-30) 03/07/19 04:58 13 mmol/L 03/07/19 04:58 BUN 6 mg/dL (7-17) L 03/07/19 04:58 < 0.2 mg/dL (0.7-1.2) L 03/07/19 04:58 Estimated GFR > 60 ml/min 03/07/19 04:58 30 % 03/07/19 04:58 Glucose 89 mg/dL (65-100) 03/07/19 04:58 5.8 % (4-6) 03/06/19 21:16 Lactic Acid 1.50 mmol/L (0.7-2.0) 03/06/19 16:53 Calcium 8.2 mg/dL (8.4-10.2) L 03/07/19 04:58 0.20 mg/dL (0.1-1.2) 03/07/19 04:58 AST 13 units/L (5-40) 03/07/19 04:58 ALT 5 units/L (7-56) L 03/07/19 04:58 58 units/L (35-129) 03/07/19 04:58 6.1 g/dL (6.3-8.2) L 03/07/19 04:58 2.2 g/dL (3.9-5) L 03/07/19 04:58 0.6 % 03/07/19 04:58 Yellow (Yellow) 03/06/19 10:32 Cloudy (Clear) 03/06/19 10:32 9.0 (5.0-7.0) H 03/06/19 10:32 Ur Specific [place] 1.012 (1.003-1.030) 03/06/19 10:32 <15 mg/dl mg/dL (Negative) 03/06/19 10:32 Neg mg/dL (Negative) 03/06/19 10:32 Neg mg/dL (Negative) 03/06/19 10:32 Neg (Negative) 03/06/19 10:32 Pos (Negative) 03/06/19 10:32 Neg (Negative) 03/06/19 10:32 < 2.0 mg/dL (<2.0) 03/06/19 10:32 Ur Leukocyte Esterase Lg (Negative) 03/06/19 10:32 2.0 /HPF (0.0-6.0) 03/06/19 10:32 1.0 /HPF (0.0-6.0) 03/06/19 10:32 U Epithel Cells (Auto) < 1.0 /HPF (0-13.0) 03/06/19 10:32 1+ /HPF (Negative) 03/06/19 10:32 Triple Phos Crystals Few 03/06/19 10:32 Active Medications - Current Medications Current Medications: Generic Name Dose Route Start Last Admin Trade Name Freq PRN Reason Stop Dose Admin Acetaminophen 650 mg 03/06/19 21:08 Tylenol PO Q4H PRN Pain MILD(1-3)/Fever >100.5/GASTELUM Famotidine 20 mg 03/07/19 10:00 03/07/19 10:46 Pepcid PO 20 mg DAILY DHAVAL Administration Sodium Chloride 1,000 mls @ 75 mls/hr 03/06/19 22:00 03/06/19 21:40 Nacl 0.9% 1000 Ml IV 75 mls/hr DIRECT DHAVAL Administration Vancomycin HCl 750 mg/ Sodium 265 mls @ 166.667 mls/hr 03/07/19 22:00 Chloride IV Q24H DHAVAL Ampicillin Sodium/Sulbactam Sodium 3 gm in 100 mls @ 100 mls/hr 03/07/19 22:00 Unasyn/Ns 3 Gm/100 Ml IV Q12HR DHAVAL Protocol Levetiracetam 500 mg 03/06/19 22:00 03/07/19 10:46 Keppra PO 500 mg Q12H DHAVAL Administration Lorazepam 1 mg 03/06/19 22:00 03/06/19 21:41 Ativan PO 1 mg QHS DHAVAL Administration Melatonin 10 mg 03/06/19 22:00 03/06/19 21:42 Melatonin PO 10 mg QHS DHAVAL Administration Ondansetron HCl 4 mg 03/06/19 21:08 Zofran IV Q8H PRN Nausea And Vomiting Oxycodone/Acetaminophen 1 tab 03/07/19 09:24 Percocet 5/325 PO Q4H PRN Pain, Moderate (4-6) Sodium Chloride 10 ml 03/06/19 22:00 03/06/19 21:43 Sodium Chloride Flush Syringe 10 Ml IV 10 ml BID DHAVAL Administration Sodium Chloride 10 ml 03/06/19 21:08 Sodium Chloride Flush Syringe 10 Ml IV PRN PRN LINE FLUSH
[2019-03-07] MEDS: NACL 0.9% 1000 ML 1,000 ML IV SCH (17:05)
[2019-03-07] MEDS ORDERED: VANCOMYCIN 750 MG in NACL 0.9% 250ML 250 ML IV SCH (22:00)
[2019-03-07] MEDS: MELATONIN PO SCH (23:21)
[2019-03-07] MEDS: ATIVAN PO SCH (23:21)
[2019-03-08 05:44] LABS: Basophils # (Auto) 0.1 K/mm3 (0.0-0.1); Eosinophils # (Auto) 0.2 K/mm3 (0.0-0.4); Eosinophils % (Auto) 2.3 % (0.0-4.3); Hematocrit 36.5 % (30.3-42.9); Hemoglobin 12.1 gm/dl (10.1-14.3); Lymphocytes # (Auto) 2.5 K/mm3 (1.2-5.4); Lymphocytes % (Auto) 23.2 % (13.4-35.0); Mean Corpuscular HGB Conc 33 % (30-34); Mean Corpuscular Volume 84 fl (79-97); Monocytes # (Auto) 0.6 K/mm3 (0.0-0.8); Monocytes % (Auto) 5.7 % (0.0-7.3); Platelet Count 251 K/mm3 (140-440); Red Blood Count 4.37 M/mm3 (3.65-5.03); Red Cell Distribution Width 13.4 % (13.2-15.2)
[2019-03-08 06:02] LABS: BUN/Creatinine Ratio 35; Blood Urea Nitrogen 7 mg/dL (7-17); Calcium 8.1 mg/dL (8.4-10.2); Hemolysis Index 13; Prealbumin 0.084 g/L (0.200-0.400)
[2019-03-08 08:34] VITALS: BP 78/30
[2019-03-08] MEDS ORDERED: NACL 0.9% 1000 ML 500 ML IV SCH (10:00)
[2019-03-08] MEDS ORDERED: NACL 0.9% 500 ML 500 ML IV ONE (10:00)
[2019-03-08] MEDS: K-DUR PO SCH ×4 (10:23→15:49)
[2019-03-08] MEDS: UNASYN/NS 3 GM/100 ML 3 GM/100 ML BAG IV SCH (10:28)
[2019-03-08] MEDS: PEPCID PO SCH (10:47)
[2019-03-08] MEDS: SODIUM CHLORIDE FLUSH SYRINGE 10 ML IV SCH (10:47)
--- NOTE | 2019-03-08 10:56 | Discharge Summary ---
<PAULO HOUSTON - Last Filed: 03/08/19 11:18> Providers - Providers Date of Admission: 03/06/19 11:57 Attending physician: JAK DUMONT MD 03/06/19 21:08 Consult to Physician [CONS] Routine Comment: called office/shahana Consulting Provider: PAULO HOUSTON Physician Instructions: Reason For Exam: sacral decubitus ulcer 03/06/19 21:29 Consult to Case Management [CONS] Routine Services Needed at Discharge: Home Health Services Form Setter Supervisor Additional Physician Instructions: please look into obtaining low air loss mattress for hospital bed. 03/06/19 21:30 Consult to Dietitian/Nutrition [CONS] Routine Physician Instructions: Reason For Exam: malnutrition Reason for Consult: Pt needs oral supplement 03/07/19 07:00 Consult to Wound/ET Nurse [CONS] Routine Reason For Exam: wound eval Primary care physician: KIET VALLEJO Hospitalization Condition: Fair Disposition: DC-50 TO HOSPICE (HOME) Exam - Constitutional Vitals: Temp Pulse Resp BP Pulse Ox 98.1 F 98 H 20 78/30 100 03/08/19 02:47 03/07/19 19:58 03/08/19 07:46 03/08/19 07:46 03/08/19 02:47 Plan Wound: per your surgeon's advice (Cleanse wounds with wound cleanser. Pack each wound with calcium alginate packing. Cover wounds with foam dressings. Do dressing change every other day), other (apply powder to the sacral area) Additional Instructions: FOLLOW UP IN WOUND CARE CLINIC WITH DR HOUSTON ON 03/17/19 @9AM Follow up with: KIET VALLEJO MD [Primary Care Provider] - 3-5 Days Prescriptions: Amoxicillin/K Clav Tab [Augmentin 875 mg] 1 tab PO Q12HR #14 tab Potassium Chloride [K-Dur] 20 meq PO QDAY #30 tablet HYDROcodone/APAP 7.5-325 [[place] 7.5-325 mg TAB] 7.5 - 325 mg PO Q6H #14 tablet Midodrine [Proamatine] 5 mg PO TID@0800,1200,1600 #90 tablet <JAK DUMONT - Last Filed: 03/08/19 14:53> Providers - Providers Date of Admission: 03/06/19 11:57 Attending physician: JAK DUMONT MD 03/06/19 21:08 Consult to Physician [CONS] Routine Comment: called office/shahana Consulting Provider: PAULO HOUSTON Physician Instructions: Reason For Exam: sacral decubitus ulcer 03/06/19 21:29 Consult to Case Management [CONS] Routine Services Needed at Discharge: Home Health Services Form Setter Supervisor Additional Physician Instructions: please look into obtaining low air loss mattress for hospital bed. 03/06/19 21:30 Consult to Dietitian/Nutrition [CONS] Routine Physician Instructions: Reason For Exam: malnutrition Reason for Consult: Pt needs oral supplement 03/07/19 07:00 Consult to Wound/ET Nurse [CONS] Routine Reason For Exam: wound eval Primary care physician: KIET VALLEJO Hospitalization Reason for admission: Sacral decubitus ulcer, sepsis Hospital course: 88-year-old -[place] female with history of seizures on hospice brought in by her son for worsening sacral decubitus ulcer. Patient was asked to go to the emergency room by the primary care physician. Patient has a lot of pain secondary to the ulcer. No fever or chills. Pain is about 8 on scale of 1-10. Patient also has a low drainage from the sacral wound. Patient is on home hospice which was revoked. Patient also has small ulcers and erosions on the right knee and right rib cage left buttocks and left breasts. Patient was admitted to the floor was a management of sepsis secondary to infected sacral decubitus ulcer. She was treated with IV antibiotics. Potassium level normalized. Case management was consulted and patient was discharged with another hospice home care. The hospice care already adjusted. patient was seen by General surgery and debridement was done and ok with discharge. patient has low BP chronically and was given midodrine. Patient was discharged with Augmentin. Patient discharged back with home hospice. patient has an appointment made by the surgeon at wound care clinic. Time spent for discharge: 32 minutes - Discharge Diagnoses (1) Sepsis Status: Acute Qualifiers: Sepsis type: sepsis due to unspecified organism Qualified Code(s): A41.9 - Sepsis, unspecified organism (2) Advance care planning Status: Acute (3) Malnutrition Status: Chronic Qualifiers: Protein-calorie malnutrition severity: moderate (4) Decubitus ulcers Status: Chronic Qualifiers: Pressure injury location: sacral region Pressure injury stage: stage 3 Qualified Code(s): L89.153 - Pressure ulcer of sacral region, stage 3 (5) Seizure disorder Status: Chronic Core Measure Documentation - Palliative Care Palliative Care/ Comfort Measures: Not Applicable - Core Measures Any of the following diagnoses?: none Exam - Physical Exam Narrative exam: Not in cardiopulmonary distress. The patient appeared well nourished and normally developed. Vital signs as documented. Head exam is unremarkable. No scleral icterus . Neck is without jugular venous distension, thyromegaly, or carotid bruits. Lungs are clear to auscultation. Cardiac exam reveals regular rate and Rhythm. Abdominal exam reveals normal bowel sounds, no masses, no organomegaly and no aortic enlargement. Extremities flaccid upper and lower extremities. FLOOR TILING PROFESSIONAL: Alert. SKIN; multiple decubitus ulcer. - Constitutional Vitals: Temp Pulse Resp BP Pulse Ox 98.1 F 98 H 20 78/30 100 03/08/19 02:47 03/07/19 19:58 03/08/19 07:46 03/08/19 07:46 03/08/19 02:47 Plan Activity: advance as tolerated Weight Bearing Status: Non-Weight Bearing Diet: regular
[2019-03-08] MEDS: KEPPRA PO SCH (11:17)
--- NOTE | 2019-03-08 11:26 | Progress Note ---
Assessment and Plan 88 yo F s/p debridement of sacral wound, POD 1 Patient with 1. multiple pressure wounds 2. bedbound 3. dementia 4. malnutrition Plan: 1. continue dressing changes as ordered, pt will have home nursing 2. offloading 3. optimize nutrition - continue protein supplements 4. follow up in wound care clinic on 03/17 @ 9am 5. verbal wound care instructions given to daughter and also written in discharge paperwork 6. PO abx ordered per 1' service for dc Ok to dc from surgery standpoint. D/W Dr. Rice. Pt being discharged back on hospice Subjective Date of service: 03/08/19 Narrative: Pt seen and examined. No acute issues. Urine collection device stopped suctioning per daughter who is at bedside. No f/c Objective Vital Signs - 12hr 03/08/19 03/08/19 03/08/19 02:47 07:44 07:46 Temperature 98.1 F Respiratory 18 20 Rate Blood Pressure 109/53 82/28 78/30 O2 Sat by Pulse 100 Oximetry - General physical appearance Narrative Exam: Gen: Awake and alert. NAD CV: s1, S2+ Resp: even and unlabored Ext: contracted. Sacrum - sacral wound dressing soiled with urine. Dressing and packing removed. Wound and periwound skin cleansed. Wound has some slough at base. Packed with 1 piece of calcium alginate. Covered with sacral foam dressing Skin: wounds with dressings c/d/i - Labs 03/08/19 05:11 03/08/19 05:11 Diabetes panel 03/08/19 Range/Units 05:11 Sodium 137 (137-145) mmol/L Potassium 3.0 L (3.6-5.0) mmol/L Chloride 102.9 (98-107) mmol/L Carbon Dioxide 24 (22-30) mmol/L BUN 7 (7-17) mg/dL Creatinine < 0.2 L (0.7-1.2) mg/dL Glucose 90 (65-100) mg/dL Calcium 8.1 L (8.4-10.2) mg/dL Calcium panel 03/08/19 Range/Units 05:11 Calcium 8.1 L (8.4-10.2) mg/dL Pituitary panel 03/08/19 Range/Units 05:11 Sodium 137 (137-145) mmol/L Potassium 3.0 L (3.6-5.0) mmol/L Chloride 102.9 (98-107) mmol/L Carbon Dioxide 24 (22-30) mmol/L BUN 7 (7-17) mg/dL Creatinine < 0.2 L (0.7-1.2) mg/dL Glucose 90 (65-100) mg/dL Calcium 8.1 L (8.4-10.2) mg/dL Adrenal panel 03/08/19 Range/Units 05:11 Sodium 137 (137-145) mmol/L Potassium 3.0 L (3.6-5.0) mmol/L Chloride 102.9 (98-107) mmol/L Carbon Dioxide 24 (22-30) mmol/L BUN 7 (7-17) mg/dL Creatinine < 0.2 L (0.7-1.2) mg/dL Glucose 90 (65-100) mg/dL Calcium 8.1 L (8.4-10.2) mg/dL
[2019-03-08] MEDS: NACL 0.9% 1000 ML 1,000 ML IV SCH (11:37)
[2019-03-08] MEDS ORDERED: PROAMATINE PO SCH (12:00)
== END 2019-03-08 15:00 | disposition hospice, home (50) | DRG 853 ==
LOC: ED 05:34 → 2B-ACE 11:57
PROVIDERS: ADMIT Internal Medicine; ATTEND Internal Medicine
PROC: 0JB70ZZ Excision of Back Subcutaneous Tissue and Fascia, Open Approach (ICD-10-PCS; principal; 2019-03-07)
DX: A41.9 Sepsis, unspecified organism (principal); L89.153 Pressure ulcer of sacral region, stage 3; E44.0 Moderate protein-calorie malnutrition; L89.899 Pressure ulcer of other site, unspecified stage; L89.329 Pressure ulcer of left buttock, unspecified stage; G40.909 Epilepsy, unspecified, not intractable, without status epilepticus; F41.9 Anxiety disorder, unspecified; Z96.649 Presence of unspecified artificial hip joint; Z96.659 Presence of unspecified artificial knee joint; R65.10 Systemic inflammatory response syndrome (SIRS) of non-infectious origin without acute organ dysfunction; F03.90 Unspecified dementia, unspecified severity, without behavioral disturbance, psychotic disturbance, mood disturbance, and anxiety; Z90.49 Acquired absence of other specified parts of digestive tract; Z68.24 Body mass index [BMI] 24.0-24.9, adult; Z74.01 Bed confinement status
CPT/HCPCS: 36415; 80048; 80053; 81001; 82140; 83036; 83735; 84132; 84134; 85007; 85025; 85730; 87040; 96361; 96365; G0378; J0295; J0690; J1170; J3370; J7030; J7040; J7050

== ENCOUNTER 2019-03-17 10:11 | Outpatient (CLI) | payer MEDICARE ==
[2019-03-17] MEDS ORDERED: XYLOCAINE TOPICAL 4% TP ONE (11:50)
== END 2019-03-17 10:12 | disposition home or self-care (01) ==
LOC: WOUND 10:11
PROVIDERS: ATTEND Surgery
DX: L89.150 Pressure ulcer of sacral region, unstageable (principal); L89.313 Pressure ulcer of right buttock, stage 3; L89.890 Pressure ulcer of other site, unstageable; F03.90 Unspecified dementia, unspecified severity, without behavioral disturbance, psychotic disturbance, mood disturbance, and anxiety; M06.9 Rheumatoid arthritis, unspecified; Z96.641 Presence of right artificial hip joint; Z96.652 Presence of left artificial knee joint; Z96.651 Presence of right artificial knee joint
CPT/HCPCS: 11042; 11045; G0463

== ENCOUNTER 2019-03-24 10:47 | Outpatient (CLI) | payer MEDICARE | END 2019-03-24 10:48 | disposition home or self-care (01) | LOC: WOUND 10:47 | PROVIDERS: ATTEND Surgery | DX: L89.153 Pressure ulcer of sacral region, stage 3 (principal); L89.890 Pressure ulcer of other site, unstageable; L89.313 Pressure ulcer of right buttock, stage 3; F03.90 Unspecified dementia, unspecified severity, without behavioral disturbance, psychotic disturbance, mood disturbance, and anxiety; M06.9 Rheumatoid arthritis, unspecified ==

== ENCOUNTER 2019-04-01 11:12 | Outpatient (CLI) | payer MEDICARE ==
[2019-04-01] MEDS ORDERED: SILVER NITRATE TP ONE (12:01)
[2019-04-01] MEDS ORDERED: XYLOCAINE TOPICAL 4% TP ONE (12:01)
== END 2019-04-01 11:13 | disposition home or self-care (01) ==
LOC: WOUND 11:12
PROVIDERS: ATTEND Surgery
DX: L89.154 Pressure ulcer of sacral region, stage 4 (principal); L89.133 Pressure ulcer of right lower back, stage 3; L89.890 Pressure ulcer of other site, unstageable; S21.002D Unspecified open wound of left breast, subsequent encounter; F03.90 Unspecified dementia, unspecified severity, without behavioral disturbance, psychotic disturbance, mood disturbance, and anxiety; M06.9 Rheumatoid arthritis, unspecified; X58.XXXD Exposure to other specified factors, subsequent encounter

== ENCOUNTER 2019-04-07 10:23 | Outpatient (CLI) | payer MEDICARE ==
[2019-04-07] MEDS ORDERED: XYLOCAINE TOPICAL 4% TP ONE (11:00)
== END 2019-04-07 10:24 | disposition home or self-care (01) ==
LOC: WOUND 10:23
PROVIDERS: ATTEND Surgery
DX: L89.154 Pressure ulcer of sacral region, stage 4 (principal); L89.133 Pressure ulcer of right lower back, stage 3; L89.890 Pressure ulcer of other site, unstageable; S21.002D Unspecified open wound of left breast, subsequent encounter; F03.90 Unspecified dementia, unspecified severity, without behavioral disturbance, psychotic disturbance, mood disturbance, and anxiety; M06.9 Rheumatoid arthritis, unspecified; X58.XXXD Exposure to other specified factors, subsequent encounter

== ENCOUNTER 2019-04-14 10:29 | Outpatient (CLI) | payer MEDICARE ==
[2019-04-14] MEDS ORDERED: XYLOCAINE TOPICAL 4% TP ONE (10:50)
[2019-04-14] MEDS ORDERED: SILVER NITRATE TP ONE (12:23)
== END 2019-04-14 10:30 | disposition home or self-care (01) ==
LOC: WOUND 10:29
PROVIDERS: ATTEND Surgery
DX: L89.154 Pressure ulcer of sacral region, stage 4 (principal); L89.133 Pressure ulcer of right lower back, stage 3; L89.890 Pressure ulcer of other site, unstageable; F01.50 Vascular dementia, unspecified severity, without behavioral disturbance, psychotic disturbance, mood disturbance, and anxiety; M06.9 Rheumatoid arthritis, unspecified

== ENCOUNTER 2019-04-23 13:43 | Inpatient (IN) | payer MEDICARE ==
--- NOTE | 2019-04-23 14:19 | Emergency Department Report ---
HPI - General Chief Complaint: Skin/Abscess/Foreign Body Time Seen by Provider: 04/23/19 14:03 - HPI HPI: Room 24 The patient is an 88-year-old female presenting with a chief complaint of decubitus ulcer drainage. The patient's daughter brings the patient's emergency department for malodorous sacral decubital ulcer drainage. She states the patient has had an ulcer on her sacrum since November 2018. She states the decubitus ulcer has become stage IV 1 week ago. She states also has had brownish drainage for the past 4 weeks but the drainage has increased over the past 2 days. The drainage became malodorous yesterday. The daughter states the patient had a fever 102.4F. The daughter contacted her physician's office who instructed the patient to come to the ED. The patient has a history of dementia initially states she feels "pretty good." The patient however admits to occasional pain in her hip. Location: [See above] Duration: [See above] Quality: [See above] Severity: [See above] Timing: [See above] Context: [See above] Modifying factors: [See above] Associated signs and symptoms: [see above] ED Past Medical Hx - Past Medical History Previous Medical History?: Yes Hx Arthritis: Yes Hx Seizures: Yes Hx Dementia: Yes Additional medical history: Anxiety - Surgical History Past Surgical History?: Yes Hx Cholecystectomy: Yes Additional Surgical History: Hip replacement. Knee replacement. Gal bladder removed - Family History Family history: no significant - Social History Smoking Status: Never Smoker Substance Use Type: None - Medications Home Medications: Home Medications Medication Instructions Recorded Confirmed Last Taken Type LORazepam [Ativan] 1 mg PO QDAY 03/06/19 03/06/19 03/05/19 History Melatonin [Melatonin 10MG TAB] 10 mg PO QHS 03/06/19 03/06/19 03/05/19 History Temazepam [Restoril] 15 mg PO QHS PRN 03/06/19 03/06/19 Unknown History levETIRAcetam [Keppra TAB] 1,000 mg PO QDAY 03/06/19 03/06/19 03/05/19 History Amoxicillin/K Clav Tab [Augmentin 1 tab PO Q12HR #14 tab 03/08/19 Unknown Rx 875 mg] HYDROcodone/APAP 7.5-325 [[place] 7.5 - 325 mg PO Q6H #14 tablet 03/08/19 Unknown Rx 7.5-325 mg TAB] Midodrine [Proamatine] 5 mg PO TID@0800,1200,1600 #90 03/08/19 Unknown Rx tablet Potassium Chloride [K-Dur] 20 meq PO QDAY #30 tablet 03/08/19 Unknown Rx ED Review of Systems ROS: Stated complaint: ULCER ON BUTTOCKS Other details as noted in HPI Constitutional: fever Musculoskeletal: arthralgia Physical Exam - Physical Exam Vital Signs: Vital Signs 04/23/19 13:51 Temperature 97.3 F L Pulse Rate 86 Respiratory 16 Rate Blood Pressure 102/64 O2 Sat by Pulse 98 Oximetry Physical Exam: GENERAL: The patient is well-developed well-nourished female lying on stretcher not appearing to be in acute distress. [] HEENT: Normocephalic. Atraumatic. Extraocular motions are intact. Patient has moist mucous membranes. NECK: Supple. Trachea midline CHEST/LUNGS: Clear to auscultation. There is no respiratory distress noted. HEART/CARDIOVASCULAR: Regular. There is no tachycardia. There is no gallop rub or murmur. ABDOMEN: Abdomen is soft, nontender. Patient has normal bowel sounds. There is no abdominal distention. SKIN: There is a stage IV sacral ulcer with purulent discharge present. There is pink granulation tissue also present. There is no edema. There is no diaphoresis. NEURO: The patient is awake and alert. The patient is cooperative. The patient has normal speech MUSCULOSKELETAL: There is no evidence of acute injury. ED Course Vital Signs 04/23/19 13:51 Temperature 97.3 F L Pulse Rate 86 Respiratory 16 Rate Blood Pressure 102/64 O2 Sat by Pulse 98 Oximetry ED Medical Decision Making - Lab Data Result diagrams: 04/23/19 16:27 04/23/19 16:39 Laboratory Tests 04/23/19 04/23/19 04/23/19 16:27 16:39 16:39 WBC 11.3 H RBC 4.44 Hgb 11.5 Hct 35.0 MCV 79 MCH 26 L MCHC 33 RDW 14.1 Plt Count 368 Lymph % (Auto) 16.4 [place] % (Auto) 7.2 Eos % (Auto) 2.4 Baso % (Auto) 0.8 Lymph # 1.9 [place] # 0.8 Eos # 0.3 Baso # 0.1 Seg Neutrophils % 73.2 H Seg Neutrophils # 8.3 H PT 14.1 INR 1.12 APTT 26.0 Sodium 131 L Potassium 3.9 Chloride 94.2 L Carbon Dioxide 28 Anion Gap 13 BUN 14 Creatinine < 0.2 L Estimated GFR > 60 BUN/Creatinine Ratio 70 Glucose 139 H Calcium 8.7 - Differential Diagnosis decubitus ulcer infection Critical care attestation.: If time is entered above; I have spent that time in minutes in the direct care of this critically ill patient, excluding procedure time. ED Disposition Clinical Impression: Infected decubitus ulcer Disposition: DC OP ADMIT IP TO THIS HOSP Is pt being admited?: Yes Does the pt Need Aspirin: No Condition: Fair
[2019-04-23] MEDS ORDERED: NACL 0.9% 500 ML IR ONE (15:00)
[2019-04-23 16:50] LABS: Basophils # (Auto) 0.1 K/mm3 (0.0-0.1); Basophils % (Auto) 0.8 % (0.0-1.8); Eosinophils # (Auto) 0.3 K/mm3 (0.0-0.4); Eosinophils % (Auto) 2.4 % (0.0-4.3); Hemoglobin 11.5 gm/dl (10.1-14.3); Lymphocytes # (Auto) 1.9 K/mm3 (1.2-5.4); Lymphocytes % (Auto) 16.4 % (13.4-35.0); Mean Corpuscular HGB Conc 33 % (30-34); Mean Corpuscular Volume 79 fl (79-97); Monocytes # (Auto) 0.8 K/mm3 (0.0-0.8); Monocytes % (Auto) 7.2 % (0.0-7.3); Platelet Count 368 K/mm3 (140-440); Red Blood Count 4.44 M/mm3 (3.65-5.03); Red Cell Distribution Width 14.1 % (13.2-15.2)
[2019-04-23 16:59] LABS: INR 1.12 (0.87-1.13)
[2019-04-23 17:01] LABS: BUN/Creatinine Ratio 70; Blood Urea Nitrogen 14 mg/dL (7-17); Calcium 8.7 mg/dL (8.4-10.2); Hemolysis Index 4
[2019-04-23] MEDS ORDERED: ZOFRAN IV ONE (17:09)
--- NOTE | 2019-04-23 17:16 | History and Physical Report ---
History of Present Illness Chief complaint: She is weaker, and her ulcer is infected History of present illness: 88 YO Female with OA, Seizure Disorder, Dementia, Debility, Anxiety, Chronic Pain to Right Hip, Sacral Decubitis Ulcer Present on Admission presents to ED for evaluation. Pt is unable to provide history. Pt history is provided by her daughter who is present at bedside during exam and interview. As per daughter the patient has experienced fever to 102.4 and has foul smelling drainage from her sacral wound, as well as redness over the past week with worsening symptoms over the past 4 days. Pt currently contracted, bedbound, nonambulatory and requires 6/6 Assistance with activities of daily living, with a pallative performance score of 30%. EMS notified and upon arrival the patient was found to be in distress and transported to [facility]. Pt seen and evaluated in ED and found to have SIRS secondary to Infected Sacral Decubitus Ulcer, Sacral Cellulitis, and Hyponatremia. Pt admitted to medical floor. Wound consult placed in ED. No further history obtainable. Prior admission on 03/06/19 reviewed. All listed medication reconciled at time of admission. Advanced care planning conducted in ED. Pt daughter acknowledges understanding and agreement with care plan. Past History Past Medical History: seizures, stroke, other (Demenita, Debility, Sacral Decubitus Ulcer) Past Surgical History: cholecystectomy, total hip replacement, total knee replacement Social history: single. denies: smoking, alcohol abuse, prescription drug abuse Family history: hypertension Medications and Allergies Allergies Allergy/AdvReac Type Severity Reaction Status Date / Time oxycodone [From Percocet] Allergy Angioedema Verified 04/23/19 17:49 acetaminophen [From Percocet] AdvReac Angioedema Verified 03/07/19 17:58 Home Medications Medication Instructions Recorded Confirmed Last Taken Type LORazepam [Ativan] 1 mg PO QDAY 03/06/19 04/23/19 04/22/19 History Melatonin [Melatonin 10MG TAB] 10 mg PO QHS 03/06/19 04/23/19 04/22/19 History Temazepam [Restoril] 15 mg PO QHS PRN 03/06/19 04/23/19 04/22/19 History levETIRAcetam [Keppra TAB] 1,000 mg PO QDAY 03/06/19 04/23/19 04/22/19 History Amoxicillin/K Clav Tab [Augmentin 1 tab PO Q12HR #14 tab 03/08/19 04/23/19 Unknown Rx 875 mg] HYDROcodone/APAP 7.5-325 [[place] 7.5 - 325 mg PO Q6H #14 tablet 03/08/19 04/23/19 04/22/19 Rx 7.5-325 mg TAB] Midodrine [Proamatine] 5 mg PO TID@0800,1200,1600 #90 03/08/19 04/23/19 04/22/19 Rx tablet Potassium Chloride [K-Dur] 20 meq PO QDAY #30 tablet 03/08/19 04/23/19 04/22/19 Rx Active Meds: Active Medications Vancomycin HCl (Vancomycin/Ns 1 Gm/250 Ml) 1 gm in 250 mls @ 167.007 mls/hr IV ONCE ONE; Protocol Stop: 04/23/19 18:37 Review of Systems ROS unobtainable: due to mental status Exam - Constitutional Vitals: Temp Pulse Resp BP Pulse Ox 97.3 F L 86 16 113/54 98 04/23/19 15:46 04/23/19 15:46 04/23/19 15:46 04/23/19 15:46 04/23/19 15:46 General appearance: Present: mild distress - EENT Eyes: Present: PERRL ENT: hearing intact, clear oral mucosa - Neck Neck: Present: supple, normal ROM - Respiratory Respiratory effort: normal Respiratory: bilateral: CTA - Cardiovascular Heart Sounds: Present: S1 & S2. Absent: rub, click - Extremities Extremities: pulses symmetrical, No edema Extremity abnormal: other (contracture, BUE/BLE) Peripheral Pulses: within normal limits - Abdominal General gastrointestinal: Present: soft, non-tender, non-distended, normal bowel sounds Female genitourinary: Present: normal - Integumentary Integumentary: Present: warm, erythema - Musculoskeletal Musculoskeletal: generalized weakness - Psychiatric Psychiatric: no appropriate mood/affect, no intact judgment & insight, no memory intact - Neurologic Neurologic: CNII-XII intact, moves all extremities, no gait normal Results - Labs CBC & Chem 7: 04/23/19 16:27 04/23/19 16:39 Labs: Abnormal lab results 04/23/19 04/23/19 Range/Units 16:27 16:39 WBC 11.3 H (4.5-11.0) K/mm3 MCH 26 L (28-32) pg Seg Neutrophils % 73.2 H (40.0-70.0) % Seg Neutrophils # 8.3 H (1.8-7.7) K/mm3 Sodium 131 L (137-145) mmol/L Chloride 94.2 L (98-107) mmol/L Creatinine < 0.2 L (0.7-1.2) mg/dL Glucose 139 H (65-100) mg/dL Assessment and Plan - Patient Problems (1) SIRS (systemic inflammatory response syndrome) Current Visit: No Status: Acute Plan to address problem: IV antibiotic therapy, CBC, CMP, IVF resuscitation therapy, supportive care. (2) Infected decubitus ulcer Current Visit: Yes Status: Acute Qualifiers: Pressure injury stage: stage 3 Qualified Code(s): L89.93 - Pressure ulcer of unspecified site, stage 3; L08.9 - Local infection of the skin and subcutaneous tissue, unspecified Plan to address problem: IV antibiotic therapy, supportive care, wound care consulted, pain control, CBC, CMP. (3) Osteoarthritis Current Visit: Yes Status: Acute Plan to address problem: Pain control, supportive care. (4) Advance care planning Current Visit: No Status: Acute Plan to address problem: Discussed end of life care, wound care, pain control. 30 minutes dedicated to di scussion. (5) Seizure disorder Current Visit: No Status: Chronic Plan to address problem: supportive care, continue current therapy, continue keppra (6) DVT prophylaxis Current Visit: No Status: Acute Plan to address problem: SCD to BLE while in bed, prophylactic lovenox
[2019-04-23] MEDS ORDERED: ZOFRAN IV PRN (17:37)
[2019-04-23] MEDS ORDERED: SODIUM CHLORIDE FLUSH SYRINGE 10 ML IV PRN (17:37)
[2019-04-23] MEDS ORDERED: PROVENTIL IH PRN (17:37)
[2019-04-23] MEDS ORDERED: VANCOMYCIN PHARMACY TO DOSE IV SCH (18:00)
[2019-04-23] MEDS ORDERED: VANCOMYCIN/NS 1 GM/250 ML 1 GM/250 ML BAG IV ONE (18:00)
[2019-04-23] MEDS ORDERED: ZOFRAN ONE (18:26)
[2019-04-23] MEDS ORDERED: MORPHINE IV ONE (18:30)
[2019-04-23] MEDS: MORPHINE IV ONE ×2 (18:30→19:15)
[2019-04-23] MEDS ORDERED: MELATONIN 10 MG PO SCH (22:00)
[2019-04-23] MEDS: MELATONIN PO SCH (22:18)
[2019-04-23] MEDS: SODIUM CHLORIDE FLUSH SYRINGE 10 ML IV SCH (22:19)
[2019-04-24 05:36] LABS: Basophils # (Auto) 0.1 K/mm3 (0.0-0.1); Basophils % (Auto) 1.1 % (0.0-1.8); Eosinophils # (Auto) 0.2 K/mm3 (0.0-0.4); Eosinophils % (Auto) 2.4 % (0.0-4.3); Hemoglobin 11.4 gm/dl (10.1-14.3); Lymphocytes # (Auto) 2.3 K/mm3 (1.2-5.4); Lymphocytes % (Auto) 24.1 % (13.4-35.0); Mean Corpuscular HGB Conc 33 % (30-34); Mean Corpuscular Volume 78 fl (79-97); Monocytes # (Auto) 0.7 K/mm3 (0.0-0.8); Monocytes % (Auto) 6.9 % (0.0-7.3); Platelet Count 361 K/mm3 (140-440); Red Cell Distribution Width 14.3 % (13.2-15.2)
[2019-04-24] MEDS ORDERED: VANCOMYCIN/NS 1 GM/250 ML 1 GM/250 ML BAG IV SCH (06:00)
--- NOTE | 2019-04-24 07:41 | Progress Note ---
Assessment and Plan Assessment and plan: 88 YO Female with OA, Seizure Disorder, Dementia, Debility, Anxiety, Chronic Pain to Right Hip, Sacral Decubitis Ulcer Present on Admission presents to ED for evaluation. Pt is unable to provide history. Pt history is provided by her daughter who is present at bedside during exam and interview. As per daughter the patient has experienced fever to 102.4 and has foul smelling drainage from her sacral wound, as well as redness over the past week with worsening symptoms over the past 4 days. Pt currently contracted, bedbound, nonambulatory and requires 6/6 Assistance with activities of daily living, with a pallative performance score of 30%. EMS notified and upon arrival the patient was found to be in distress and transported to [facility]. Pt seen and evaluated in ED and found to have SIRS secondary to Infected Sacral Decubitus Ulcer, Sacral Cellulitis, and Hyponatremia. Pt admitted to medical floor. Wound consult placed in ED. No further history obtainable. Prior admission on 03/06/19 reviewed. All listed medication reconciled at time of admission. Advanced care planning conducted in ED. Pt daughter acknowledges understanding and agreement with care plan. * Prior hx of home hospice * From prior visit, Patient also has small ulcers and erosions on the right knee and right rib cage left buttocks and left breasts, she also underwent debridement during the visit and was discharged back with home hospice on Augmentin. * patient has low BP chronically and was given midodrine. * Patients family rescinded hospice Sepsis Secondary to infected decubitus ulcer Pressure ulcer- Pressure injury stage: stage 3 Qualified Code(s): L89.93 - Pressure ulcer of unspecified site, stage 3; L08.9 - Local infection of the skin and subcutaneous tissue, unspecified Osteoarthiritis Seizure Disorder Hyponatremia Advance care Planning: Case management also included to see if we can coordinate outpatient debridement with Woundcare clinic Severe Protein Calorie Malnutrition DVT/GI prophy Plan Continue supportive care Pain control Woundcare and Surgery Consult Continue Abx Discussed extensively advanced care plan with patient and family Monitor Na level DVT/GI prophy Discussed with family History Interval history: Patient seen and examined, daughter at bedside, patient groans but unable to provided any history. Daughter confirms admission hx. Hospitalist Physical - Physical exam Narrative exam: General appearance: Present: mild distress, Incoherent groaning - EENT Eyes: Present: PERRL ENT: hearing intact, clear oral mucosa - Neck Neck: Present: supple, normal ROM - Respiratory Respiratory effort: normal Respiratory: bilateral: CTA - Cardiovascular Heart Sounds: Present: S1 & S2. Absent: rub, click - Extremities Extremities: pulses symmetrical, No edema Extremity abnormal: other (contracture, BUE/BLE) Peripheral Pulses: within normal limits - Abdominal General gastrointestinal: Present: soft, non-tender, non-distended, normal bowel sounds Female genitourinary: Present: normal - Integumentary Integumentary: Present: warm, erythema, multiple decubitus ulcers, including knee and breast- see skin assessment for full description - Musculoskeletal Musculoskeletal: generalized weakness - Psychiatric Psychiatric: no appropriate mood/affect, no intact judgment & insight, no memory intact - Neurologic Neurologic: CNII-XII intact, moves all extremities, no gait normal - Constitutional Vitals: Temp Pulse Resp BP Pulse Ox 98.2 F 102 H 18 120/61 96 04/24/19 02:26 04/24/19 02:26 04/24/19 02:26 04/24/19 02:26 04/24/19 02:26 General appearance: Present: mild distress Results - Labs CBC & Chem 7: 04/24/19 05:13 04/23/19 16:39 Labs: Laboratory Last Values WBC 9.6 K/mm3 (4.5-11.0) 04/24/19 05:13 RBC 4.50 M/mm3 (3.65-5.03) 04/24/19 05:13 Hgb 11.4 gm/dl (10.1-14.3) 04/24/19 05:13 Hct 35.0 % (30.3-42.9) 04/24/19 05:13 MCV 78 fl (79-97) L 04/24/19 05:13 MCH 25 pg (28-32) L 04/24/19 05:13 MCHC 33 % (30-34) 04/24/19 05:13 RDW 14.3 % (13.2-15.2) 04/24/19 05:13 Plt Count 361 K/mm3 (140-440) 04/24/19 05:13 Lymph % (Auto) 24.1 % (13.4-35.0) 04/24/19 05:13 [place] % (Auto) 6.9 % (0.0-7.3) 04/24/19 05:13 Eos % (Auto) 2.4 % (0.0-4.3) 04/24/19 05:13 Baso % (Auto) 1.1 % (0.0-1.8) 04/24/19 05:13 Lymph # 2.3 K/mm3 (1.2-5.4) 04/24/19 05:13 [place] # 0.7 K/mm3 (0.0-0.8) 04/24/19 05:13 Eos # 0.2 K/mm3 (0.0-0.4) 04/24/19 05:13 Baso # 0.1 K/mm3 (0.0-0.1) 04/24/19 05:13 Seg Neutrophils % 65.5 % (40.0-70.0) 04/24/19 05:13 Seg Neutrophils # 6.3 K/mm3 (1.8-7.7) 04/24/19 05:13 PT 14.1 Sec. (12.2-14.9) 04/23/19 16:39 INR 1.12 (0.87-1.13) 04/23/19 16:39 APTT 26.0 Sec. (24.2-36.6) 04/23/19 16:39 Sodium 131 mmol/L (137-145) L 04/23/19 16:39 Potassium 3.9 mmol/L (3.6-5.0) 04/23/19 16:39 Chloride 94.2 mmol/L (98-107) L 04/23/19 16:39 Carbon Dioxide 28 mmol/L (22-30) 04/23/19 16:39 13 mmol/L 04/23/19 16:39 BUN 14 mg/dL (7-17) 04/23/19 16:39 < 0.2 mg/dL (0.7-1.2) L 04/23/19 16:39 Estimated GFR > 60 ml/min 04/23/19 16:39 70 % 04/23/19 16:39 Glucose 139 mg/dL (65-100) H 04/23/19 16:39 Calcium 8.7 mg/dL (8.4-10.2) 04/23/19 16:39 Active Medications - Current Medications Current Medications: Generic Name Dose Route Start Last Admin Trade Name Freq PRN Reason Stop Dose Admin Acetaminophen 650 mg 04/23/19 17:37 Tylenol PO Q4H PRN Pain MILD(1-3)/Fever >100.5/GASTELUM Albuterol 2.5 mg 04/23/19 17:37 Proventil IH Q4HRT PRN Shortness Of Breath Vancomycin HCl 1 gm in 250 mls @ 125 mls/hr 04/24/19 06:00 04/24/19 06:02 Vancomycin/Ns 1 Gm/250 Ml IV 125 mls/hr Q24H DAHVAL Administration Lorazepam 1 mg 04/24/19 10:00 Ativan PO QDAY DHAVAL Melatonin 10 mg 04/23/19 22:00 04/23/19 22:18 Melatonin PO 10 mg QHS DHAVAL Administration Midodrine 5 mg 04/24/19 08:00 Proamatine PO TID@0800,1200,1600 DHAVAL Ondansetron HCl 4 mg 04/23/19 17:37 Zofran IV Q8H PRN Nausea And Vomiting Potassium Chloride 20 meq 04/24/19 10:00 K-Dur PO QDAY DAHVAL Sodium Chloride 10 ml 04/23/19 22:00 04/23/19 22:19 Sodium Chloride Flush Syringe 10 Ml IV 10 ml BID DHAVAL Administration Sodium Chloride 10 ml 04/23/19 17:37 Sodium Chloride Flush Syringe 10 Ml IV PRN PRN LINE FLUSH
[2019-04-24] MEDS: PROAMATINE PO SCH ×3 (09:35→17:50)
[2019-04-24] MEDS: SODIUM CHLORIDE FLUSH SYRINGE 10 ML IV SCH ×2 (09:36→21:36)
[2019-04-24] MEDS: K-DUR PO SCH (09:36)
[2019-04-24] MEDS ORDERED: ATIVAN PO SCH (10:00)
--- NOTE | 2019-04-24 13:20 | Consultation ---
History of Present Illness Consult date: 04/24/19 Chief complaint: wound - History of present illness History of present illness: 88 yo F with dementia, bedbound presented to hospital for evaluation of fever up to 102, and copious drainage from her sacral wound. Patient was last admitted in February and was evaluated for several wounds. Since then she is been followed up with in the wound care center on a weekly basis. She was last seen 1.5 weeks ago and wounds were stable. The patient's right rib cage wound and sacral wound had been worsening over the last several weeks and required multiple debridements. According to the patient's daughter and her primary lead atg developer, qing pena sacral wound started having copious drainage 2 days after last visit to the wound care center. She states it was draining so much that she had to change the pad 2 times a day. Fever started shortly thereafter. She states that the patient has not been eating very well. She has had a nonproductive cough. The patient has a chronic Lin catheter which was removed last Sunday and replaced yesterday in the emergency room. Patient cannot provide any history due to dementia. Patient was previously on hospice however this was revoked last week as daughter elected to proceed with aggressive wound care and treatment Past History Past Medical History: seizures, stroke, other (Demenita, Debility, Sacral Decubitus Ulcer) Past Surgical History: cholecystectomy, total hip replacement, total knee replacement Social history: single. denies: smoking, alcohol abuse, prescription drug abuse Family history: hypertension Medications and Allergies Allergies Allergy/AdvReac Type Severity Reaction Status Date / Time oxycodone [From Percocet] Allergy Angioedema Verified 04/23/19 17:49 acetaminophen [From Percocet] AdvReac Angioedema Verified 03/07/19 17:58 Home Medications Medication Instructions Recorded Confirmed Last Taken Type LORazepam [Ativan] 1 mg PO QDAY 03/06/19 04/23/19 04/22/19 History Melatonin [Melatonin 10MG TAB] 10 mg PO QHS 03/06/19 04/23/19 04/22/19 History Temazepam [Restoril] 15 mg PO QHS PRN 03/06/19 04/23/19 04/22/19 History levETIRAcetam [Keppra TAB] 1,000 mg PO QDAY 03/06/19 04/23/19 04/22/19 History Amoxicillin/K Clav Tab [Augmentin 1 tab PO Q12HR #14 tab 03/08/19 04/23/19 Unknown Rx 875 mg] HYDROcodone/APAP 7.5-325 [[place] 7.5 - 325 mg PO Q6H #14 tablet 03/08/19 04/23/19 04/22/19 Rx 7.5-325 mg TAB] Midodrine [Proamatine] 5 mg PO TID@0800,1200,1600 #90 03/08/19 04/23/19 04/22/19 Rx tablet Potassium Chloride [K-Dur] 20 meq PO QDAY #30 tablet 03/08/19 04/23/19 04/22/19 Rx Active Meds: Active Medications Acetaminophen (Tylenol) 650 mg PO Q4H PRN PRN Reason: Pain MILD(1-3)/Fever >100.5/GASTELUM Albuterol (Proventil) 2.5 mg IH Q4HRT PRN PRN Reason: Shortness Of Breath Heparin Sodium (Porcine) (Heparin) 5,000 unit SUB-Q Q8HR [facility] Vancomycin HCl 750 mg/ Sodium (Chloride) 265 mls @ 166.667 mls/hr IV Q24HR [facility] Sodium Chloride (Nacl 0.9% 1000 Ml) 1,000 mls @ 75 mls/hr IV DIRECT [facility] Lorazepam (Ativan) 1 mg PO QDAY [facility] Last Admin: 04/24/19 09:35 Dose: 1 mg Documented by: Melatonin (Melatonin) 10 mg PO QHS [facility] Last Admin: 04/23/19 22:18 Dose: 10 mg Documented by: Midodrine (Proamatine) 5 mg PO TID@0800,1200,1600 [facility] Last Admin: 04/24/19 09:35 Dose: 5 mg Documented by: Ondansetron HCl (Zofran) 4 mg IV Q8H PRN PRN Reason: Nausea And Vomiting Potassium Chloride (K-Dur) 20 meq PO QDAY [facility] Last Admin: 04/24/19 09:36 Dose: 20 meq Documented by: Sodium Chloride (Sodium Chloride Flush Syringe 10 Ml) 10 ml IV BID [facility] Last Admin: 04/24/19 09:36 Dose: 10 ml Documented by: Sodium Chloride (Sodium Chloride Flush Syringe 10 Ml) 10 ml IV PRN PRN PRN Reason: LINE FLUSH Sodium Hypochlorite (Dakin's Half Strength) 1 applic TP Q12H PRN PRN Reason: Wound Care Review of Systems ROS unobtainable: due to mental status Exam Vital Signs Temp Pulse Resp BP Pulse Ox 97.3 F L 86 16 102/64 98 04/23/19 13:51 04/23/19 13:51 04/23/19 13:51 04/23/19 13:51 04/23/19 13:51 Narrative exam: General: Awake and alert. No apparent distress ENT: No scleral icterus or conjunctival pallor CV: S1, S2 present Respiratory: Even and unlabored Abdomen: Soft, nontender, nondistended Extremities: All 4 extremities are contracted. Left knee wound with minimal slough that base, no drainage, no erythema or tenderness. Sacrum: There is a unstageable sacral wound with slough, undermining in all 4 quadrants. There is a foul odor and minimal drainage Musculoskeletal: Right rib cage wound with slough along the edges. No drainage, erythema or odor Results - Labs 04/24/19 05:13 04/23/19 16:39 Abnormal lab results 04/23/19 04/23/19 04/24/19 Range/Units 16:27 16:39 05:13 WBC 11.3 H (4.5-11.0) K/mm3 MCV 78 L (79-97) fl MCH 26 L 25 L (28-32) pg Seg Neutrophils % 73.2 H (40.0-70.0) % Seg Neutrophils # 8.3 H (1.8-7.7) K/mm3 Sodium 131 L (137-145) mmol/L Chloride 94.2 L (98-107) mmol/L Creatinine < 0.2 L (0.7-1.2) mg/dL Glucose 139 H (65-100) mg/dL Diabetes panel 04/23/19 Range/Units 16:39 Sodium 131 L (137-145) mmol/L Potassium 3.9 (3.6-5.0) mmol/L Chloride 94.2 L (98-107) mmol/L Carbon Dioxide 28 (22-30) mmol/L BUN 14 (7-17) mg/dL Creatinine < 0.2 L (0.7-1.2) mg/dL Glucose 139 H (65-100) mg/dL Calcium 8.7 (8.4-10.2) mg/dL Calcium panel 04/23/19 Range/Units 16:39 Calcium 8.7 (8.4-10.2) mg/dL Pituitary panel 04/23/19 Range/Units 16:39 Sodium 131 L (137-145) mmol/L Potassium 3.9 (3.6-5.0) mmol/L Chloride 94.2 L (98-107) mmol/L Carbon Dioxide 28 (22-30) mmol/L BUN 14 (7-17) mg/dL Creatinine < 0.2 L (0.7-1.2) mg/dL Glucose 139 H (65-100) mg/dL Calcium 8.7 (8.4-10.2) mg/dL Adrenal panel 04/23/19 Range/Units 16:39 Sodium 131 L (137-145) mmol/L Potassium 3.9 (3.6-5.0) mmol/L Chloride 94.2 L (98-107) mmol/L Carbon Dioxide 28 (22-30) mmol/L BUN 14 (7-17) mg/dL Creatinine < 0.2 L (0.7-1.2) mg/dL Glucose 139 H (65-100) mg/dL Calcium 8.7 (8.4-10.2) mg/dL Assessment and Plan 88-year-old female with 1. Unstageable sacral wound 2. Lateral chest wall wound 3. Left knee wound 4. Dementia 5. Bedbound 6. Malnutrition Plan: 1. I had a long discussion with daughter regarding wound healing. With patient's current condition, it will likely take a very long time for these wounds to heal even if we proceed with aggressive treatment. I explained that other than wound care, patient will likely need additional debridements, possible feeding tube, MRI, senior care antibiotics, offloading, and even possibly a colostomy if the wound deteriorates further. Daughter/primary lead atg developer wants to proceed with aggressive treatment. 2. MRI sacrum to r/o osteo 3. c/w abx 4. recommend urinalysis, CXR to r/o other sources of sepsis as patient did have a cough and indwelling lin catheter 5. offloading, frequent turning 6. assess nutrition - prealbumin and albumin. [employer] consult 7. gentle IVF 8. follow up cultures from wound 9. recommend ID consult 10. possible need for further debridement Thank you, please call with questions.
[2019-04-24] MEDS: HEPARIN SUB-Q SCH ×2 (13:58→21:31)
[2019-04-24] MEDS: NACL 0.9% 1000 ML 1,000 ML IV SCH (13:59)
[2019-04-24] MEDS ORDERED: D5/0.45NS 1,000 ML IV SCH (14:00)
--- NOTE | 2019-04-24 17:31 | Magnetic Resonance Report ---
MRI PELVIS WITHOUT AND WITH CONTRAST INDICATION / CLINICAL INFORMATION: sacral wound, eval for osteo. COMPARISON: None available. TECHNIQUE: Multisequence, multiplanar images were obtained. Pre and postcontrast series were obtained. FINDINGS: BONES: There is moderate bone marrow edema in the distal sacrum and coccyx. There is osseous enhance ment as well. There has been previous right Girdlestone procedure with resection of the right femoral head and neck. There has been previous internal fixation of a left hip fracture. SACROILIAC JOINT(S): No significant abnormality. RIGHT HIP JOINT: Previous Girdlestone procedure. Femoral head cement spacer has been placed. There is a very large right hip joint effusion with moderately extensive synovitis. This right hip collection measures about 10.4 x 5.5 x 10.0 cm. LEFT HIP JOINT: No acute abnormality. GLUTEAL MUSCLES/TENDONS: Extensive muscle atrophy. No definite acute abnormality. PROXIMAL HAMSTRING TENDONS: No significant abnormality. GROIN MUSCLES/TENDONS: No significant abnormality. SUBCUTANEOUS SOFT TISSUES: Soft tissue defect on the posterior aspect of the sacrum with small subcut aneous soft tissue fluid collection and surrounding soft tissue edema. LOWER LUMBAR SPINE: Mild lower lumbar degenerative spondylosis. SOFT TISSUE WITHIN PELVIS: Urinary bladder contracted around a Leone catheter. Moderate bladder wall thickening may represent neurogenic bladder. Moderate amount of fecal material in the rectal vault co uld represent fecal impaction. ADDITIONAL FINDINGS: None. IMPRESSION: 1. Soft tissue wound of the posterior sacrum with small underlying soft tissue fluid collection and d istal sacral/coccygeal osteomyelitis. 2. Previous right hip Girdlestone procedure with large fluid collection and synovitis in the right hi p joint space containing what appears to be a cement emerald head spacer. Signer Name: Tamar Roger MD Signed: 04/24/2019 5:27 PM Workstation Name: [id number]
[2019-04-24] MEDS: MAXIPIME/NS 1 GM/100 ML 1 GM/100 ML BAG IV SCH ×2 (17:50→22:57)
[2019-04-24] MEDS: MELATONIN PO SCH (21:30)
[2019-04-24] MEDS: TYLENOL PO PRN (21:30)
[2019-04-25] MEDS: ATIVAN PO SCH ×2 (00:51→22:16)
[2019-04-25] MEDS: RESTORIL PO SCH ×2 (01:58→22:15)
[2019-04-25 04:21] LABS: Albumin 2.5 g/dL (3.9-5); Prealbumin 0.074 g/L (0.200-0.400)
[2019-04-25] MEDS: TYLENOL PO PRN (06:01)
[2019-04-25] MEDS: MAXIPIME/NS 1 GM/100 ML 1 GM/100 ML BAG IV SCH ×2 (06:02→22:00)
[2019-04-25] MEDS: HEPARIN SUB-Q SCH ×3 (06:02→22:01)
--- NOTE | 2019-04-25 07:30 | Progress Note ---
Assessment and Plan Assessment and plan: 88 YO Female with OA, Seizure Disorder, Dementia, Debility, Anxiety, Chronic Pain to Right Hip, Sacral Decubitis Ulcer Present on Admission presents to ED for evaluation. Pt is unable to provide history. Pt history is provided by her daughter who is present at bedside during exam and interview. As per daughter the patient has experienced fever to 102.4 and has foul smelling drainage from her sacral wound, as well as redness over the past week with worsening symptoms over the past 4 days. Pt currently contracted, bedbound, nonambulatory and requires 6/6 Assistance with activities of daily living, with a pallative performance score of 30%. EMS notified and upon arrival the patient was found to be in distress and transported to [facility]. Pt seen and evaluated in ED and found to have SIRS secondary to Infected Sacral Decubitus Ulcer, Sacral Cellulitis, and Hyponatremia. Pt admitted to medical floor. Wound consult placed in ED. No further history obtainable. Prior admission on 03/06/19 reviewed. All listed medication reconciled at time of admission. Advanced care planning conducted in ED. Pt daughter acknowledges understanding and agreement with care plan. * Prior hx of home hospice * From prior visit, Patient also has small ulcers and erosions on the right knee and right rib cage left buttocks and left breasts, she also underwent debridement during the visit and was discharged back with home hospice on Augmentin. * patient has low BP chronically and was given midodrine. * Patients family rescinded hospice * Surgery team "had a long discussion with daughter regarding wound healing. With patient's current condition, it will likely take a very long time for these wounds to heal even if we proceed with aggressive treatment. I explained that other than wound care, patient will likely need additional debridements, possible feeding tube, MRI, oysterman antibiotics, offloading, and even possibly a colostomy if the wound deteriorates further. Daughter/primary track repair worker wants to proceed with aggressive treatment." MRI sacrum : Distal sacral/coccygeal osteomylitis, right hip Girdlestone procedure with large fulid collection synovitis and synovitis in the right hip joint space Sepsis Secondary to infected decubitus ulcer Osteomyelitis Pressure ulcer- Pressure injury stage: Unstagable at revaluation Pressure ulcer of unspecified site, stage 3; L08.9 - Local infection of the skin and subcutaneous tissue, unspecified Lateral chest wall wound Osteoarthiritis Seizure Disorder Hyponatremia Advance care Planning: Case management also included to see if we can coordinate outpatient debridement with Woundcare clinic Severe Protein Calorie Malnutrition Dementia Bedbound DVT/GI prophy Plan Continue supportive care Patient for Peg tube today Surgery consulted noted, for further debridement on sunday. Panculture, CXR ID consulted Pain control Offloading, frequent turning Paint Formulator consult Woundcare and Surgery Consult Continue Abx Discussed extensively advanced care plan with patient and family Monitor Na level DVT/GI prophy Discussed with family Poor prognosis History Interval history: Patient seen and examined, daughter at bedside, No new complaints Hospitalist Physical - Physical exam Narrative exam: General appearance: Present: mild distress, Incoherent groaning - EENT Eyes: Present: PERRL ENT: hearing intact, clear oral mucosa - Neck Neck: Present: supple, normal ROM - Respiratory Respiratory effort: normal Respiratory: bilateral: CTA - Cardiovascular Heart Sounds: Present: S1 & S2. Absent: rub, click - Extremities Extremities: pulses symmetrical, No edema Extremity abnormal: other (contracture, BUE/BLE) Peripheral Pulses: within normal limits - Abdominal General gastrointestinal: Present: soft, non-tender, non-distended, normal bowel sounds Female genitourinary: Present: normal - Integumentary Integumentary: Present: warm, erythema, multiple decubitus ulcers, including knee and breast- see skin assessment for full description - Musculoskeletal Musculoskeletal: generalized weakness - Psychiatric Psychiatric: no appropriate mood/affect, no intact judgment & insight, no memory intact - Neurologic Neurologic: CNII-XII intact, moves all extremities, no gait normal - Constitutional Vitals: Temp Pulse Resp BP Pulse Ox 98.8 F 86 16 87/50 96 04/25/19 01:32 04/25/19 01:32 04/25/19 06:46 04/25/19 01:32 04/25/19 01:32 General appearance: Present: mild distress Results - Labs CBC & Chem 7: 04/24/19 05:13 04/23/19 16:39 Labs: Laboratory Last Values WBC 9.6 K/mm3 (4.5-11.0) 04/24/19 05:13 RBC 4.50 M/mm3 (3.65-5.03) 04/24/19 05:13 Hgb 11.4 gm/dl (10.1-14.3) 04/24/19 05:13 Hct 35.0 % (30.3-42.9) 04/24/19 05:13 MCV 78 fl (79-97) L 04/24/19 05:13 MCH 25 pg (28-32) L 04/24/19 05:13 MCHC 33 % (30-34) 04/24/19 05:13 RDW 14.3 % (13.2-15.2) 04/24/19 05:13 Plt Count 361 K/mm3 (140-440) 04/24/19 05:13 Lymph % (Auto) 24.1 % (13.4-35.0) 04/24/19 05:13 Dawes % (Auto) 6.9 % (0.0-7.3) 04/24/19 05:13 Eos % (Auto) 2.4 % (0.0-4.3) 04/24/19 05:13 Baso % (Auto) 1.1 % (0.0-1.8) 04/24/19 05:13 Lymph # 2.3 K/mm3 (1.2-5.4) 04/24/19 05:13 Dawes # 0.7 K/mm3 (0.0-0.8) 04/24/19 05:13 Eos # 0.2 K/mm3 (0.0-0.4) 04/24/19 05:13 Baso # 0.1 K/mm3 (0.0-0.1) 04/24/19 05:13 Seg Neutrophils % 65.5 % (40.0-70.0) 04/24/19 05:13 Seg Neutrophils # 6.3 K/mm3 (1.8-7.7) 04/24/19 05:13 PT 14.1 Sec. (12.2-14.9) 04/23/19 16:39 INR 1.12 (0.87-1.13) 04/23/19 16:39 APTT 26.0 Sec. (24.2-36.6) 04/23/19 16:39 Sodium 131 mmol/L (137-145) L 04/23/19 16:39 Potassium 3.9 mmol/L (3.6-5.0) 04/23/19 16:39 Chloride 94.2 mmol/L (98-107) L 04/23/19 16:39 Carbon Dioxide 28 mmol/L (22-30) 04/23/19 16:39 13 mmol/L 04/23/19 16:39 BUN 14 mg/dL (7-17) 04/23/19 16:39 < 0.2 mg/dL (0.7-1.2) L 04/23/19 16:39 Estimated GFR > 60 ml/min 04/23/19 16:39 70 % 04/23/19 16:39 Glucose 139 mg/dL (65-100) H 04/23/19 16:39 Calcium 8.7 mg/dL (8.4-10.2) 04/23/19 16:39 2.5 g/dL (3.9-5) L 04/25/19 03:09 0.074 g/L (0.200-0.400) L 04/25/19 03:09 Active Medications - Current Medications Current Medications: Generic Name Dose Route Start Last Admin Trade Name Freq PRN Reason Stop Dose Admin Acetaminophen 650 mg 04/23/19 17:37 04/25/19 06:01 Tylenol PO 650 mg Q4H PRN Administration Pain MILD(1-3)/Fever >100.5/GASTELUM Albuterol 2.5 mg 04/23/19 17:37 Proventil IH Q4HRT PRN Shortness Of Breath Heparin Sodium (Porcine) 5,000 unit 04/24/19 14:00 04/25/19 06:02 Heparin SUB-Q 5,000 unit Q8HR DHAVAL Administration Vancomycin HCl 750 mg/ Sodium 265 mls @ 166.667 mls/hr 04/25/19 10:00 Chloride IV Q24HR DHAVAL Sodium Chloride 1,000 mls @ 75 mls/hr 04/24/19 10:00 04/24/19 13:59 Nacl 0.9% 1000 Ml IV 75 mls/hr DIRECT DHAVAL Administration Dextrose/Sodium Chloride 1,000 mls @ 75 mls/hr 04/24/19 14:00 04/24/19 20:22 D5/0.45ns IV 75 mls/hr DIRECT DHAVAL Administration Cefepime HCl 1 gm in 100 mls @ 200 mls/hr 04/24/19 15:00 04/25/19 06:02 Maxipime/Ns 1 Gm/100 Ml IV 200 mls/hr Q8H DHAVAL Administration Protocol Lorazepam 1 mg 04/25/19 01:00 04/25/19 00:51 Ativan PO 1 mg QHS DHAVAL Administration Midodrine 5 mg 04/24/19 08:00 04/24/19 17:50 Proamatine PO 5 mg TID@0800,1200,1600 DHAVAL Administration Ondansetron HCl 4 mg 04/23/19 17:37 Zofran IV Q8H PRN Nausea And Vomiting Potassium Chloride 20 meq 04/24/19 10:00 04/24/19 09:36 K-Dur PO 20 meq QDAY DHAVAL Administration Sodium Chloride 10 ml 04/23/19 22:00 04/24/19 21:36 Sodium Chloride Flush Syringe 10 Ml IV 10 ml BID DHAVAL Administration Sodium Chloride 10 ml 04/23/19 17:37 Sodium Chloride Flush Syringe 10 Ml IV PRN PRN LINE FLUSH Sodium Hypochlorite 1 applic 04/24/19 10:23 Dakin's Half Strength TP Q12H PRN Wound Care Temazepam 15 mg 04/25/19 01:00 04/25/19 01:58 Restoril PO Not Given QHS DHAVAL
--- NOTE | 2019-04-25 08:24 | XRay Report ---
CHEST 1 VIEW INDICATION: SEPSIS. COMPARISON: None available FINDINGS: Support devices: None. Heart: Within normal limits. Lungs/Pleura: No acute air space or interstitial disease. Additional findings: None. IMPRESSION: No acute findings. Signer Name: Zaid Abraham Jr, MD Signed: 04/25/2019 8:20 AM Workstation Name: [id number]
[2019-04-25] MEDS: NACL 0.9% 1000 ML 1,000 ML IV SCH ×2 (09:03→14:16)
[2019-04-25] MEDS: K-DUR PO SCH (09:04)
[2019-04-25] MEDS: VANCOMYCIN 750 MG in NACL 0.9% 250ML 250 ML IV SCH (09:04)
[2019-04-25] MEDS: SODIUM CHLORIDE FLUSH SYRINGE 10 ML IV SCH ×2 (09:04→22:16)
[2019-04-25] MEDS: PROAMATINE PO SCH ×3 (09:04→17:06)
[2019-04-25 09:39] LABS: Bacteria,Urine 1+ /HPF (Negative); Bilirubin,Urine NEG (Negative); Blood,Urine SM (Negative); Color,Urine Yellow (Yellow); Mucus,Urine FEW /HPF; Protein,Urine <15 mg/dL mg/dL (Negative); Urobilinogen,Urine < 2.0 mg/dL (<2.0)
--- NOTE | 2019-04-25 10:56 | Consultation ---
History of Present Illness - Reason for Consult Consult date: 04/25/19 - History of Present Illness 88 yo M PMHx dementia, debility, seizures disorder, chronic pain, and chronic sacral decubitus ulcer presented to the hospital due to increased drainage from her sacral wound. The patient is unable to provide a history, as such it is taken from the chart. Her daughter reported that the patient was found to have a fever to 102.4, and that for the past week there was been a significant increase in the amount of foul smelling purulent drainage coming from the wound. The patient is permanently bedbound and contracted, and completely dependent on her daughter caregiver for activities of daily living. She was recently a hospice patient, but was revoked by the daughter who wants to pursue aggressive treatment. She was admitted for a similar issue in February with debridement of the sacral wound. Afebrile since admission with a mild leukocytosis to 11. She is currently receiving vancomycin and cefepime. Wound cultures obtained are growing a gram negative dolores pending finalization. 04/23 BCx are no growth to date. Imaging personally reviewed: 04/23 MRI of the pelvis>: soft tissue wound of posterior sacrum with small soft tissue fluid. Sacral osteomyelitis Past History Past Medical History: seizures, stroke, other (Demenita, Debility, Sacral Decubitus Ulcer) Past Surgical History: cholecystectomy, total hip replacement, total knee replacement Social history: single. denies: smoking, alcohol abuse, prescription drug abuse Family history: hypertension Medications and Allergies Allergies Allergy/AdvReac Type Severity Reaction Status Date / Time oxycodone [From Percocet] Allergy Angioedema Verified 04/23/19 17:49 acetaminophen [From Percocet] AdvReac Angioedema Verified 03/07/19 17:58 Home Medications Medication Instructions Recorded Confirmed Last Taken Type LORazepam [Ativan] 1 mg PO QHS 03/06/19 04/24/19 04/22/19 History Melatonin [Melatonin 10MG TAB] 10 mg PO QHS 03/06/19 04/23/19 04/22/19 History Temazepam [Restoril] 15 mg PO QHS PRN 03/06/19 04/23/19 04/22/19 History levETIRAcetam [Keppra TAB] 1,000 mg PO QDAY 03/06/19 04/23/19 04/22/19 History Amoxicillin/K Clav Tab [Augmentin 1 tab PO Q12HR #14 tab 03/08/19 04/23/19 Unknown Rx 875 mg] HYDROcodone/APAP 7.5-325 [[place] 7.5 - 325 mg PO Q6H #14 tablet 03/08/19 04/23/19 04/22/19 Rx 7.5-325 mg TAB] Midodrine [Proamatine] 5 mg PO TID@0800,1200,1600 #90 03/08/19 04/23/19 04/22/19 Rx tablet Potassium Chloride [K-Dur] 20 meq PO QDAY #30 tablet 03/08/19 04/23/19 04/22/19 Rx Active Meds: Active Medications Acetaminophen (Tylenol) 650 mg PO Q4H PRN PRN Reason: Pain MILD(1-3)/Fever >100.5/GASTELUM Last Admin: 04/25/19 06:01 Dose: 650 mg Documented by: Albuterol (Proventil) 2.5 mg IH Q4HRT PRN PRN Reason: Shortness Of Breath Heparin Sodium (Porcine) (Heparin) 5,000 unit SUB-Q Q8HR DHAVAL Last Admin: 04/25/19 06:02 Dose: 5,000 unit Documented by: Vancomycin HCl 750 mg/ Sodium (Chloride) 265 mls @ 166.667 mls/hr IV Q24HR [facility] Last Admin: 04/25/19 09:04 Dose: 166.667 mls/hr Documented by: Sodium Chloride (Nacl 0.9% 1000 Ml) 1,000 mls @ 75 mls/hr IV DIRECT DHAVAL Last Admin: 04/25/19 09:03 Dose: 75 mls/hr Documented by: Dextrose/Sodium Chloride (D5/0.45ns) 1,000 mls @ 75 mls/hr IV DIRECT DHAVAL Last Admin: 04/24/19 20:22 Dose: 75 mls/hr Documented by: Cefepime HCl (Maxipime/Ns 1 Gm/100 Ml) 1 gm in 100 mls @ 200 mls/hr IV Q12HR@0 600,1800 DHAVAL; Protocol Lorazepam (Ativan) 1 mg PO QHS [facility] Last Admin: 04/25/19 00:51 Dose: 1 mg Documented by: Midodrine (Proamatine) 5 mg PO TID@0800,1200,1600 [facility] Last Admin: 04/25/19 09:04 Dose: 5 mg Documented by: Ondansetron HCl (Zofran) 4 mg IV Q8H PRN PRN Reason: Nausea And Vomiting Potassium Chloride (K-Dur) 20 meq PO QDAY [facility] Last Admin: 04/25/19 09:04 Dose: 20 meq Documented by: Sodium Chloride (Sodium Chloride Flush Syringe 10 Ml) 10 ml IV BID [facility] Last Admin: 04/25/19 09:04 Dose: 10 ml Documented by: Sodium Chloride (Sodium Chloride Flush Syringe 10 Ml) 10 ml IV PRN PRN PRN Reason: LINE FLUSH Sodium Hypochlorite (Dakin's Half Strength) 1 applic TP Q12H PRN PRN Reason: Wound Care Temazepam (Restoril) 15 mg PO QHS [facility] Last Admin: 04/25/19 01:58 Dose: Not Given Documented by: Review of Systems ROS unobtainable: due to mental status Physical Examination - Physical Exam Narrative exam: Physical Exam: Constitutional: Awake, disoriented Head, Ears, Nose: Normocephalic, atraumatic. External ears, nose normal Eyes: Conjunctivae/corneas clear. No icterus. No ptosis. Neck: Supple, no meningeal signs Oral: dentition fair, no thrush Cardiovascular: S1, S2 normal. Respiratory: Good air entry, clear to auscultation bilaterally GI: Soft, non-tender; bowel sounds normal. No peritoneal signs. Musculoskeletal: No pedal edema, no cyanosis. bilateral UE contractures. Skin: No rash or abscess Hem/Lymphatic: No palpable cervical or supraclavicular nodes. No lymphangitis Psych: Mood ok. Affect normal Neurological: verbal, incoherent, disoriented. - Constitutional Vitals: Vital Signs Temp Pulse Resp BP Pulse Ox 97.3 F L 89 18 103/44 98 04/25/19 07:30 04/25/19 07:30 04/25/19 07:30 04/25/19 07:30 04/25/19 07:30 Temperature -Last 24 Hours Temperature 97.3 F Temperature 98.8 F Temperature 98.4 F Temperature 99.0 F Results - Labs CBC & Chem 7: 04/24/19 05:13 04/23/19 16:39 Labs: Abnormal lab results 04/25/19 04/25/19 Range/Units 03:09 09:16 Albumin 2.5 L (3.9-5) g/dL Prealbumin 0.074 L (0.200-0.400) g/L Urine WBC (Auto) 67.0 H (0.0-6.0) /HPF - Imaging and Cardiology MRI - abdomen: image reviewed Assessment and Plan Cultures: 04/23 BCx: NGTD 04/23 wound Cx: GNR pending finalization A/P:88 yo M PMHx dementia, debility, seizures disorder, chronic pain, and chronic sacral decubitus ulcer admitted with wound infection and osteomyelitis. 1. Acute sepsis - present on admission with leukocytosis and tachycardia (now resolved) due to wound infection 2. Wound infection - GNR growing from wound, but polymicrobial stain. Recommend continuing vancomycin and cefepime pending culture finalization. She is a weekly patient of Dr. Patel'carlos for wound care. For debridement on Sunday. 3. Sacral osteomyelitis - Discussed at length with patient's daughter for approximately 15 minutes. Discussed that while we can treat the wound infection as above, we are unlikely to be able to clear the osteomyelitis given there is an open wound that likely probes to bone. Even if we are able to "cure" the osteomyelitis, she is likely to become re-infected due to poor source control. I recommended to her that we only treat the wound and bone to avoid futile prolonged antibiotic exposure. I attempted to impress upon her the overall poor prognosis of her mother's condition: that while we can treat the current infection, given the wounds, her advanced age, and debility these infections are likely to recur and there is little chance of preventing them. Strongly recommend they re-consider hospice. 4. Chronic debility 5. Chronic dementia - poor baseline mentation 6. Seizure disorder Recs: - continue cefepime, but increased to q8h dosing - continue vancomycin dosed per pharmacy. Appreciate their assistance. Goal trough 15-20 - monitor renal function while on vancomycin - follow up blood and wound cultures - for debridement on Sunday. - Recommend hospice care. Thank you for the consult, we will continue to follow. Grayson Parham MD [facility] ([facility] M: [phone] O: [phone] F: [phone]
--- NOTE | 2019-04-25 11:12 | Progress Note ---
Assessment and Plan 88-year-old female with 1. Unstageable sacral wound with osteomyelitis 2. R Lateral chest wall wound 3. Left knee wound 4. Dementia 5. Bedbound 6. Severe protein calorie Malnutrition - PAL 0.074, Alb 2.5 MRI pelvis - soft tissue wound of posterior sacrum with small underlying soft tissue fluid collection and distal sacral/coccygeal osteomyelitis. Prior R girdlestone procedure Plan: Patient's nutritional status is worse than her prior admission. She has sacral osteomyelitis. She has an infected sacral wound and UTI. Overall she has a poor prognosis for wound healing. Despite aggressive measures, the chances of wound healing is low and further skin breakdown/new wounds is high. Discussed this with daughter who is at bedside in great detail. She understands and states she is not ready to resume hospice. I called Dr. Suarez who is patient's PCP to update him and left VM. 1. continue daily wound care as per marketing team lead - jarad to sacral wound 2. c/w abx 3. ID consulted - discussed case with Dr. Parham 4. offloading, frequent turning 5. gentle IVF 6. follow up cultures from wound 7. recommend GI consult for PEG tube evaluation 8. Will plan for sacral wound and right lateral chest wound debridement on Saturday 04/28 in the OR, NPO p MN on 04/27. Patient's daughter is agreeable. I explained that the wound on the sacrum with likely be 2 times larger after debridement Thank you, please call with questions. Subjective Date of service: 04/25/19 Narrative: Pt seen and examined. No acute change in condition, or overnight events. Remains afebrile. Objective Vital Signs - 12hr 04/25/19 04/25/19 04/25/19 00:20 00:47 01:32 Temperature 98.8 F Pulse Rate 82 86 Respiratory 20 Rate Blood Pressure 91/55 87/50 O2 Sat by Pulse 96 Oximetry 04/25/19 04/25/19 04/25/19 06:01 06:46 07:30 Temperature 97.3 F L Pulse Rate 89 Respiratory 16 16 18 Rate Blood Pressure 103/44 O2 Sat by Pulse 98 Oximetry - General physical appearance Narrative Exam: Gen: Awake and alert. NAD CV; s1, S2+ resp: even and unlabored Ext: contracted - Labs 04/24/19 05:13 04/23/19 16:39 Diabetes panel 04/25/19 Range/Units 03:09 Albumin 2.5 L (3.9-5) g/dL Calcium panel 04/25/19 Range/Units 03:09 Albumin 2.5 L (3.9-5) g/dL Adrenal panel 04/25/19 Range/Units 03:09 Albumin 2.5 L (3.9-5) g/dL
[2019-04-25] MEDS ORDERED: ANCEF/STERILE WATER 2 GM/20 ML 2 GM/20 ML SYRINGE IV NR (14:00)
[2019-04-25] MEDS ORDERED: ANCEF/STERILE WATER 2 GM/20 ML 2 GM/20 ML SYRINGE IV ONE (14:14)
--- NOTE | 2019-04-25 14:26 | Anesthesia Day of Surgery ---
Anesthesia Day of Surgery - Day of Surgery Patient Examined: Yes Patient H&P Reviewed: Yes Patient is NPO: Yes
--- NOTE | 2019-04-25 14:26 | Anesthesia Consultation ---
Anesthesia Consult and Med Hx Date of service: 04/25/19 - Airway Anesthetic Teeth Evaluation: Poor Intubation Access Assessment: Possibly Difficult (uncooperative with airway exam) - Pulmonary Exam CTA: Yes - Cardiac Exam Cardiac Exam: RRR - Pre-Operative Health Status ASA Pre-Surgery Classification: ASA3 Proposed Anesthetic Plan: MAC - Pulmonary Hx Respiratory Symptoms: No - Cardiovascular System Hx Hypertension: No Hx Heart Attack/AMI: No Hx Cardia Arrhythmia: No - Central Nervous System Hx Seizures: Yes (none recent) CVA: Yes (remote hx) - Gastrointestinal Hx Gastroesophageal Reflux Disease: No - Endocrine Hx Renal Disease: No Hx Liver Disease: No Hx Insulin Dependent Diabetes: No Hx Non-Insulin Dependent Diabetes: No Hx Thyroid Disease: No - Hematic Hx Anemia: Yes - Other Systems Hx Obesity: No - Additional Comments Anesthesia Medical History Comments: No hx anesthetic complications. Hx osteomyelitis, dementia, seizure disorder, and severe malnutrition scheduled for PEG. History and consent obtained from family at bedside.
[2019-04-25] MEDS ORDERED: SUBLIMAZE ONE (14:35)
[2019-04-25] MEDS ORDERED: DIPRIVAN 10 MG/ML IV ONE (14:35)
--- NOTE | 2019-04-25 15:12 | Post Operative Note ---
Pre-op diagnosis: weight loss, malnutrition Post-op diagnosis: same Findings: EGD: hiatal hernia - gastritis - negative other - 20 F pull peg placed, bumper at 2 1/2 cm Procedure: EGD/PEG Anesthesia: MAC Surgeon: CYNTHIA HOWARD Estimated blood loss: none Pathology: list Specimen disposition: to lab Condition: stable Disposition: floor
[2019-04-25] MEDS ORDERED: MAXIPIME/NS 1 GM/100 ML 1 GM/100 ML BAG IV SCH (18:00)
--- NOTE | 2019-04-25 18:08 | Operative Report ---
PROCEDURE: Esophagogastroduodenoscopy with percutaneous endoscopic gastrostomy placement. INDICATIONS: 1. Weight loss. 2. Nutrition support. 3. Failure to thrive. 4. Dysphagia. MEDICATIONS: Propofol per BULLION WEIGHER. COMPLICATIONS: None. DESCRIPTION OF PROCEDURE: The patient was brought to the procedure suite. The patient had the procedure discussed with her family at length. All risks, complications, and benefits were discussed after which consent was gotten for her procedure to be performed. The patient was placed in supine position. Mouth block was placed in the patient's oral cavity. After adequate sedation with medication as above, endoscope placed in the mouth and brought to level of the second portion of duodenum. Retroflexion view performed. The patient's vital signs remained stable throughout the procedure. FINDINGS: There was noted to be a small hiatal hernia at GE junction. Esophagus otherwise appeared to be normal. Mild gastritis. The stomach otherwise appeared to be normal. The duodenum area was visualized, appeared grossly normal. Retroflexion view performed in the stomach showed no other pathology other than noted above. After this, especially using standard technique and transillumination, area for adequate placement of PEG tube was found in the gastric body. Using standard technique, a 20-[place] pull PEG was then placed. Bump was noted to be at 2.5 cm. Post-procedure, the patient was satisfactory. The patient tolerated the procedure well. No complications during the procedure. IMPRESSION: 1. Hiatal hernia. 2. Gastritis. 3. Otherwise, normal EGD. 4. PEG tube placed without obvious complications. RECOMMENDATIONS: 1. Basic PEG tube orders, see chart. 2. Vital signs, bleeding, infection. 3. Nutrition support. 4. We will follow up in a.m. JOB# [id number] [facility]
[2019-04-26] MEDS: MAXIPIME/NS 1 GM/100 ML 1 GM/100 ML BAG IV SCH ×3 (06:06→23:31)
[2019-04-26] MEDS: HEPARIN SUB-Q SCH ×3 (06:09→23:32)
--- NOTE | 2019-04-26 06:58 | Consultation ---
REFERRING PHYSICIAN: Dr. Andrea Tafoya. INDICATIONS: 1. Weight loss. 2. Nutrition support. 3. Dysphagia. HISTORY OF PRESENT ILLNESS: The patient is an 88-year-old black female with history of osteoarthritis, seizure disorder, dementia, debility as well as anxiety disorder as well as chronic pain. The patient is admitted for sacral ulcers with infection. The patient has been set up for wound debridement. The patient has had poor p.o. intake and loss of function with weight loss. She has not been taking food recently. GI is consulted to aid in management. Denies any other specific GI complaints including nausea, vomiting, abdominal pain, diarrhea, constipation, or rectal bleeding. PAST MEDICAL HISTORY: 1. Seizure disorder. 2. Stroke. 3. Dementia. 4. Sacral ulcer. PAST SURGICAL HISTORY: 1. Cholecystectomy. 2. Hip replacement. 3. Knee replacement. MEDICATIONS: Reviewed and updated in chart. ALLERGIES: OXYCODONE AND ACETAMINOPHEN. SOCIAL HISTORY: Denies alcohol or tobacco. FAMILY HISTORY: Negative for colon cancer or liver disease. REVIEW OF SYSTEMS: GENERAL: Reports some weakness. HEENT: No visual complaints or tinnitus. PULMONARY: No shortness of breath. No cough. No chest pain. GASTROINTESTINAL: Reports no abdominal pain. EXTREMITIES: Reports ulcer pain. All points of 13-point review of systems otherwise negative. PHYSICAL EXAMINATION: VITAL SIGNS: Temperature of 98.6, pulse 96, respirations 20, blood pressure 100/50. GENERAL: Fairly thin female in no acute distress. HEENT: Pupils equal, round, reactive. PULMONARY: Clear to auscultation bilaterally. CARDIOVASCULAR: Regular rhythm. Normal S1, S2. ABDOMEN: Positive bowel sounds, soft. Sacral decubitus ulcer noted. SKIN: No obvious rashes. LABORATORY DATA: Pertinent for white count of 9.6, hemoglobin and hematocrit 11.4 and 35, platelet count of 361. Chem-7 within normal limits except for a sodium of 131. Coags within normal limits. ASSESSMENT: An 88-year-old female with past medical history noted above, now with failure to thrive, weight loss and sacral ulcers. The patient has been seen by surgery, it was felt that nutritional support will be very much needed to help with her general strength as well as to help nutritional support to aid in ulcer healing after debridement. PLAN: 1. Follow hematocrit and transfuse as needed. 2. N.p.o. 3. Plan EGD with PEG tube placement today. 4. Further recommendation based on PEG tube results. JOB# [id number] CAB/NTS
--- NOTE | 2019-04-26 07:35 | Progress Note ---
Assessment and Plan Assessment and plan: 88 YO Female with OA, Seizure Disorder, Dementia, Debility, Anxiety, Chronic Pain to Right Hip, Sacral Decubitis Ulcer Present on Admission presents to ED for evaluation. Pt is unable to provide history. Pt history is provided by her daughter who is present at bedside during exam and interview. As per daughter the patient has experienced fever to 102.4 and has foul smelling drainage from her sacral wound, as well as redness over the past week with worsening symptoms over the past 4 days. Pt currently contracted, bedbound, nonambulatory and requires 6/6 Assistance with activities of daily living, with a pallative performance score of 30%. EMS notified and upon arrival the patient was found to be in distress and transported to [facility]. Pt seen and evaluated in ED and found to have SIRS secondary to Infected Sacral Decubitus Ulcer, Sacral Cellulitis, and Hyponatremia. Pt admitted to medical floor. Wound consult placed in ED. No further history obtainable. Prior admission on 03/06/19 reviewed. All listed medication reconciled at time of admission. Advanced care planning conducted in ED. Pt daughter acknowledges understanding and agreement with care plan. * Prior hx of home hospice * From prior visit, Patient also has small ulcers and erosions on the right knee and right rib cage left buttocks and left breasts, she also underwent debridement during the visit and was discharged back with home hospice on Augmentin. * patient has low BP chronically and was given midodrine. * Patients family rescinded hospice * Surgery team "had a long discussion with daughter regarding wound healing. With patient's current condition, it will likely take a very long time for these wounds to heal even if we proceed with aggressive treatment. I explained that other than wound care, patient will likely need additional debridements, possible feeding tube, MRI, termite exterminator helper antibiotics, offloading, and even possibly a colostomy if the wound deteriorates further. 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 synovitis and synovitis in the right hip joint space Sepsis Secondary to infected decubitus ulcer Osteomyelitis Pressure ulcer- Pressure injury stage: Unstagable at revaluation Pressure ulcer of unspecified site, stage 3; L08.9 - Local infection of the skin and subcutaneous tissue, unspecified Lateral chest wall wound Osteoarthiritis Seizure Disorder Hyponatremia Acute cystitis-POA Advance care Planning: Case management also included to see if we can coordinate outpatient debridement with Woundcare clinic Severe Protein Calorie Malnutrition Dementia Bedbound DVT/GI prophy Plan Continue supportive care Cultures pending Patient has indewelling lin catheter secondary to pressure ulcer and urinary incontinence Surgery consulted noted, for further debridement on sunday. ID input noted Pain control Offloading, frequent turning Card Processing Clerk consult Woundcare Continue Abx Discussed extensively advanced care plan with patient and family Monitor Na level DVT/GI prophy Discussed with family Poor prognosis plan discussed with the daughter History Interval history: Patient seen and examined, daughters at bedside, No new complaints, patient asking to go home. Tube feed started this am Hospitalist Physical - Physical exam Narrative exam: General appearance: Present: mild distress, repeats the same question, wants to go home - EENT Eyes: Present: PERRL ENT: hearing intact, clear oral mucosa - Neck Neck: Present: supple, normal ROM - Respiratory Respiratory effort: normal Respiratory: bilateral: CTA - Cardiovascular Heart Sounds: Present: S1 & S2. Absent: rub, click - Extremities Extremities: pulses symmetrical, No edema Extremity abnormal: other (contracture, BUE/BLE) Peripheral Pulses: within normal limits - Abdominal General gastrointestinal: Present: soft, non-tender, non-distended, normal bowel sounds Female genitourinary: Present: normal - Integumentary Integumentary: Present: contracted warm, erythema, multiple decubitus ulcers, including knee and breast- see skin assessment for full description - Musculoskeletal Musculoskeletal: generalized weakness - Psychiatric Psychiatric: no appropriate mood/affect, no intact judgment & insight, no memory intact - Neurologic Neurologic: CNII-XII intact, no gait normal - Constitutional Vitals: Temp Pulse Resp BP Pulse Ox 100.0 F H 81 20 92/52 99 04/26/19 01:33 04/26/19 02:23 04/26/19 01:33 04/26/19 01:33 04/26/19 02:23 General appearance: Present: mild distress Results - Labs CBC & Chem 7: 04/24/19 05:13 04/23/19 16:39 Labs: Laboratory Last Values WBC 9.6 K/mm3 (4.5-11.0) 04/24/19 05:13 RBC 4.50 M/mm3 (3.65-5.03) 04/24/19 05:13 Hgb 11.4 gm/dl (10.1-14.3) 04/24/19 05:13 Hct 35.0 % (30.3-42.9) 04/24/19 05:13 MCV 78 fl (79-97) L 04/24/19 05:13 MCH 25 pg (28-32) L 04/24/19 05:13 MCHC 33 % (30-34) 04/24/19 05:13 RDW 14.3 % (13.2-15.2) 04/24/19 05:13 Plt Count 361 K/mm3 (140-440) 04/24/19 05:13 Lymph % (Auto) 24.1 % (13.4-35.0) 04/24/19 05:13 [place] % (Auto) 6.9 % (0.0-7.3) 04/24/19 05:13 Eos % (Auto) 2.4 % (0.0-4.3) 04/24/19 05:13 Baso % (Auto) 1.1 % (0.0-1.8) 04/24/19 05:13 Lymph # 2.3 K/mm3 (1.2-5.4) 04/24/19 05:13 [place] # 0.7 K/mm3 (0.0-0.8) 04/24/19 05:13 Eos # 0.2 K/mm3 (0.0-0.4) 04/24/19 05:13 Baso # 0.1 K/mm3 (0.0-0.1) 04/24/19 05:13 Seg Neutrophils % 65.5 % (40.0-70.0) 04/24/19 05:13 Seg Neutrophils # 6.3 K/mm3 (1.8-7.7) 04/24/19 05:13 PT 14.1 Sec. (12.2-14.9) 04/23/19 16:39 INR 1.12 (0.87-1.13) 04/23/19 16:39 APTT 26.0 Sec. (24.2-36.6) 04/23/19 16:39 Sodium 131 mmol/L (137-145) L 04/23/19 16:39 Potassium 3.9 mmol/L (3.6-5.0) 04/23/19 16:39 Chloride 94.2 mmol/L (98-107) L 04/23/19 16:39 Carbon Dioxide 28 mmol/L (22-30) 04/23/19 16:39 13 mmol/L 04/23/19 16:39 BUN 14 mg/dL (7-17) 04/23/19 16:39 < 0.2 mg/dL (0.7-1.2) L 04/23/19 16:39 Estimated GFR > 60 ml/min 04/23/19 16:39 70 % 04/23/19 16:39 Glucose 139 mg/dL (65-100) H 04/23/19 16:39 Calcium 8.7 mg/dL (8.4-10.2) 04/23/19 16:39 2.5 g/dL (3.9-5) L 04/25/19 03:09 0.074 g/L (0.200-0.400) L 04/25/19 03:09 Yellow (Yellow) 04/25/19 09:16 Cloudy (Clear) 04/25/19 09:16 6.0 (5.0-7.0) 04/25/19 09:16 Ur Specific [place] 1.017 (1.003-1.030) 04/25/19 09:16 <15 mg/dl mg/dL (Negative) 04/25/19 09:16 Neg mg/dL (Negative) 04/25/19 09:16 Neg mg/dL (Negative) 04/25/19 09:16 Sm (Negative) 04/25/19 09:16 Neg (Negative) 04/25/19 09:16 Neg (Negative) 04/25/19 09:16 < 2.0 mg/dL (<2.0) 04/25/19 09:16 Ur Leukocyte Esterase Lg (Negative) 04/25/19 09:16 67.0 /HPF (0.0-6.0) H 04/25/19 09:16 17.0 /HPF (0.0-6.0) 04/25/19 09:16 U Epithel Cells (Auto) 3.0 /HPF (0-13.0) 04/25/19 09:16 1+ /HPF (Negative) 04/25/19 09:16 Few /HPF 04/25/19 09:16 Active Medications - Current Medications Current Medications: Generic Name Dose Route Start Last Admin Trade Name Freq PRN Reason Stop Dose Admin Acetaminophen 650 mg 04/23/19 17:37 04/25/19 06:01 Tylenol PO 650 mg Q4H PRN Administration Pain MILD(1-3)/Fever >100.5/GASTELUM Albuterol 2.5 mg 04/23/19 17:37 Proventil IH Q4HRT PRN Shortness Of Breath Heparin Sodium (Porcine) 5,000 unit 04/24/19 14:00 04/26/19 06:09 Heparin SUB-Q 5,000 unit Q8HR DHAVAL Administration Vancomycin HCl 750 mg/ Sodium 265 mls @ 166.667 mls/hr 04/25/19 10:00 04/25/19 09:04 Chloride IV 166.667 mls/hr Q24HR DHAVAL Administration Sodium Chloride 1,000 mls @ 75 mls/hr 04/24/19 10:00 04/25/19 09:03 Nacl 0.9% 1000 Ml IV 75 mls/hr DIRECT DHAVAL Administration Dextrose/Sodium Chloride 1,000 mls @ 75 mls/hr 04/24/19 14:00 04/24/19 20:22 D5/0.45ns IV 75 mls/hr DIRECT DHAVAL Administration Sodium Chloride 1,000 mls @ 50 mls/hr 04/25/19 14:00 04/25/19 14:16 Nacl 0.9% 1000 Ml IV 50 mls/hr DIRECT DHAVAL Administration Cefepime HCl 1 gm in 100 mls @ 200 mls/hr 04/25/19 22:00 04/26/19 06:06 Maxipime/Ns 1 Gm/100 Ml IV 200 mls/hr Q8HR DHAVAL Administration Protocol Lorazepam 1 mg 04/25/19 01:00 04/25/19 22:16 Ativan PO Not Given QHS DHAVAL Midodrine 5 mg 04/24/19 08:00 04/25/19 17:06 Proamatine PO Not Given TID@0800,1200,1600 DHAVAL Ondansetron HCl 4 mg 04/23/19 17:37 Zofran IV Q8H PRN Nausea And Vomiting Potassium Chloride 20 meq 04/24/19 10:00 04/25/19 09:04 K-Dur PO 20 meq QDAY DHAVAL Administration Sodium Chloride 10 ml 04/23/19 22:00 04/25/19 22:16 Sodium Chloride Flush Syringe 10 Ml IV Not Given BID DHAVAL Sodium Chloride 10 ml 04/23/19 17:37 Sodium Chloride Flush Syringe 10 Ml IV PRN PRN LINE FLUSH Sodium Hypochlorite 1 applic 04/24/19 10:23 Dakin's Half Strength TP Q12H PRN Wound Care Temazepam 15 mg 04/25/19 01:00 04/25/19 22:15 Restoril PO Not Given QHS DHAVAL Nutrition/Malnutrition Assess - Dietary Evaluation Nutrition/Malnutrition Findings: Nutrition Notes Start: 04/25/19 12:51 Freq: Status: Active Protocol: Document 04/25/19 12:51 DW (Rec: 04/25/19 14:23 DW [id number]) Co-Sign 04/25/19 12:51 RM Nutrition Notes Need for Assessment generated from: MD Order Initial or Follow up Assessment Current Diagnosis Sepsis,Malnutrition Other Pertinent Diagnosis Dementia, Debility, Hyponatremia, muliple wounds, seizure disorder Hx CVA Current Diet NPO Labs/Tests Cr <.2 BG 139 Pertinent Medications Dextrose Saline 100 ml/hr Height 5 ft Weight 57.7 kg [place] Body Weight (kg) 45.45 BMI 24.8 Subjective/Other Information Regular diet inplace earlier today. NPO later today. Pt was sleep and was observed for malnutriton. There was temporal and orbital wasting. Noted half drunk ONS at bedside. Per nurse patient was only consuming 25-50% of meals. Pt daughter feeds her. And she drinks more than she eats. Nurse stated pt is planned for PEG today Percent of energy/protein needs met: 100%/100% Burn Absent Trauma Absent Minimum of two criteria Yes Body Fat Depletion Mild depletion (non-severe) Muscle Mass Moderate Depletion (severe) #1 Nutrition Diagnosis Malnutrition Etiology inadequate oral intake As Evidenced by Signs and Symptoms Temporal and Orbital Wasting Is patient on ventilator? No Is Patient Ambulatory and/or Out of Bed No REE-([facility]-confined to bed) 1121.952 Kcal/Kg value to use for calculation 23 Approximate Energy Requirements Using 1327 kcal/Kg Calculation Used for Recommendations Neil Jeong Additional Notes PRO needs 72-86g/kg (1.25-1.5) 1 ml/kcal Nutrition Intervention Change Diet Order: TF consult Goal #1 TF consult Anticipated Discharge Needs: Unable to determine at this time Follow-Up By: 04/28/19 Additional Comments FU for TF consult
[2019-04-26] MEDS: PROAMATINE PO SCH ×3 (08:49→16:59)
[2019-04-26] MEDS ORDERED: SODIUM BICARBONATE FEEDTUBE PRN (09:25)
[2019-04-26] MEDS ORDERED: SIMPLE SYRUP FEEDTUBE PRN ×2 (09:25)
[2019-04-26] MEDS ORDERED: PANCREAZE DR 10,500 UNIT FEEDTUBE PRN (09:25)
[2019-04-26] MEDS: NACL 0.9% 1000 ML 1,000 ML IV SCH (09:42)
[2019-04-26] MEDS: VANCOMYCIN 750 MG in NACL 0.9% 250ML 250 ML IV SCH (09:55)
[2019-04-26] MEDS: SODIUM CHLORIDE FLUSH SYRINGE 10 ML IV SCH ×2 (09:56→23:33)
[2019-04-26] MEDS: POTASSIUM CHLORIDE FEEDTUBE SCH (09:59)
--- NOTE | 2019-04-26 11:42 | Progress Note ---
Assessment and Plan 88-year-old female with 1. Unstageable sacral wound with osteomyelitis 2. R Lateral chest wall wound 3. Left knee wound 4. Dementia 5. Bedbound 6. Severe protein calorie Malnutrition - PAL 0.074, Alb 2.5 MRI pelvis - soft tissue wound of posterior sacrum with small underlying soft tissue fluid collection and distal sacral/coccygeal osteomyelitis. Prior R girdlestone procedure Wound cultures (prelim) - klebsiella and proteus Plan: Patient's nutritional status is worse than her prior admission. She has sacral osteomyelitis. She has an infected sacral wound and UTI. Overall she has a poor prognosis for wound healing. Despite aggressive measures, the chances of wound healing is low and further skin breakdown/new wounds is high. Discussed this with daughter who is at bedside in great detail and she understands. She wants to pursue aggressive treatment and does not want hospice at this time. 1. continue daily wound care as per cost controller - jarad to sacral wound BID 2. c/w abx per ID, recs appreciated 3. offloading, frequent turning 4. appreciate GI consult and PEG placement - continue TF as ordered 5. Will plan for sacral wound and right lateral chest wound debridement on Saturday 04/28 in the OR, NPO p MN on 04/27. Patient's daughter is agreeable. I explained that the wound on the sacrum with likely be 2 times larger after debridement. Consent obtained. Thank you, please call with questions. Subjective Date of service: 04/26/19 Narrative: Pt seen and examined. No acute issues or overnight events. Tm 100 overnight Objective Vital Signs - 12hr 04/26/19 04/26/19 04/26/19 01:33 02:23 07:40 Temperature 100.0 F H 98.7 F Pulse Rate 81 80 Pulse Rate [ Apical] Respiratory 20 18 Rate Blood Pressure 92/52 113/70 O2 Sat by Pulse 99 100 Oximetry 04/26/19 10:00 Temperature Pulse Rate 78 Pulse Rate [ 80 Apical] Respiratory 18 Rate Blood Pressure O2 Sat by Pulse 100 Oximetry - General physical appearance Narrative Exam: Gen; Awake and alert. NAD CV: s1, s2+ Resp: even and unlabored Abd: soft, NT, PEG tube in place with TF running Ext: contracted Sacrum - sacral wound with foul odor and minimal drainage, packing in wound with dakins solution. - Labs 04/24/19 05:13 04/23/19 16:39
[2019-04-26] MEDS: TYLENOL PO PRN (12:50)
--- NOTE | 2019-04-26 14:41 | Progress Note ---
Assessment and Plan 1. S/p PEG placement - doing well. - adv TF as per Nutrition to appropriate level. Call as needed. Will sign off. Subjective Date of service: 04/26/19 Interval history: Pt shari TF well. No adverse events reported. Family in room. Objective - Constitutional Vitals: Vital Signs - 12hr 04/26/19 04/26/19 04/26/19 07:40 10:00 12:50 Temperature 98.7 F Pulse Rate 80 78 Pulse Rate [ 80 Apical] Respiratory 18 18 18 Rate Blood Pressure 113/70 O2 Sat by Pulse 100 100 Oximetry 04/26/19 14:00 Temperature 98.4 F Pulse Rate 75 Pulse Rate [ Apical] Respiratory 18 Rate Blood Pressure 87/46 O2 Sat by Pulse 100 Oximetry General appearance: Present: no acute distress - Gastrointestinal General gastrointestinal: Present: soft, non-tender, other (G-tube site clean. Bumper loosened 1/2") - Labs CBC & Chem 7: 04/24/19 05:13 04/23/19 16:39 Medications & Allergies - Medications Allergies/Adverse Reactions: Allergies oxycodone [From Percocet] Allergy (Verified 04/23/19 17:49) Angioedema acetaminophen [From Percocet] Adverse Reaction (Verified 03/07/19 17:58) Angioedema Home Medications: Home Medications Medication Instructions Recorded Confirmed Last Taken Type LORazepam [Ativan] 1 mg PO QHS 03/06/19 04/24/19 04/22/19 History Melatonin [Melatonin 10MG TAB] 10 mg PO QHS 03/06/19 04/23/19 04/22/19 History Temazepam [Restoril] 15 mg PO QHS PRN 03/06/19 04/23/19 04/22/19 History levETIRAcetam [Keppra TAB] 1,000 mg PO QDAY 03/06/19 04/23/19 04/22/19 History Amoxicillin/K Clav Tab [Augmentin 1 tab PO Q12HR #14 tab 03/08/19 04/23/19 Unknown Rx 875 mg] HYDROcodone/APAP 7.5-325 [[place] 7.5 - 325 mg PO Q6H #14 tablet 03/08/19 04/23/19 04/22/19 Rx 7.5-325 mg TAB] Midodrine [Proamatine] 5 mg PO TID@0800,1200,1600 #90 03/08/19 04/23/19 04/22/19 Rx tablet Potassium Chloride [K-Dur] 20 meq PO QDAY #30 tablet 03/08/19 04/23/19 04/22/19 Rx Active Medications: Generic Name Dose Route Start Last Admin Trade Name Freq PRN Reason Stop Dose Admin Acetaminophen 650 mg 04/23/19 17:37 04/26/19 12:50 Tylenol PO 650 mg Q4H PRN Administration Pain MILD(1-3)/Fever >100.5/GASTELUM Albuterol 2.5 mg 04/23/19 17:37 Proventil IH Q4HRT PRN Shortness Of Breath Lipase/Protease/Amylase 1 each 04/26/19 09:25 Pancreaze 10,500 Unit FEEDTUBE PRN PRN For Clogged Feeding Tube Heparin Sodium (Porcine) 5,000 unit 04/24/19 14:00 04/26/19 14:23 Heparin SUB-Q 5,000 unit Q8HR DHAVAL Administration Vancomycin HCl 750 mg/ Sodium 265 mls @ 166.667 mls/hr 04/25/19 10:00 04/26/19 09:55 Chloride IV 166.667 mls/hr Q24HR DHAVAL Administration Sodium Chloride 1,000 mls @ 75 mls/hr 04/24/19 10:00 04/25/19 09:03 Nacl 0.9% 1000 Ml IV 75 mls/hr DIRECT DHAVAL Administration Dextrose/Sodium Chloride 1,000 mls @ 75 mls/hr 04/24/19 14:00 04/24/19 20:22 D5/0.45ns IV 75 mls/hr DIRECT DHAVAL Administration Sodium Chloride 1,000 mls @ 50 mls/hr 04/25/19 14:00 04/26/19 09:42 Nacl 0.9% 1000 Ml IV 50 mls/hr DIRECT DHAVAL Administration Cefepime HCl 1 gm in 100 mls @ 200 mls/hr 04/25/19 22:00 04/26/19 14:22 Maxipime/Ns 1 Gm/100 Ml IV 200 mls/hr Q8HR DHAVAL Administration Protocol Lorazepam 1 mg 04/25/19 01:00 04/25/19 22:16 Ativan PO Not Given QHS DHAVAL Midodrine 5 mg 04/24/19 08:00 04/26/19 12:50 Proamatine PO 5 mg TID@0800,1200,1600 DHAVAL Administration Ondansetron HCl 4 mg 04/23/19 17:37 Zofran IV Q8H PRN Nausea And Vomiting Potassium Chloride 20 meq 04/26/19 10:00 04/26/19 09:59 Potassium Chloride FEEDTUBE 20 meq QDAY DHAVAL Administration Simple Syrup 15 ml 04/26/19 09:25 Simple Syrup FEEDTUBE PRN PRN Hypoglycemia Simple Syrup 30 ml 04/26/19 09:25 Simple Syrup FEEDTUBE PRN PRN Hypoglycemia Sodium Bicarbonate 325 mg 04/26/19 09:25 Sodium Bicarbonate FEEDTUBE PRN PRN For Clogged Feeding Tube Sodium Chloride 10 ml 04/23/19 22:00 04/26/19 09:56 Sodium Chloride Flush Syringe 10 Ml IV 10 ml BID DHAVAL Administration Sodium Chloride 10 ml 04/23/19 17:37 Sodium Chloride Flush Syringe 10 Ml IV PRN PRN LINE FLUSH Sodium Hypochlorite 1 applic 04/24/19 10:23 Dakin's Half Strength TP Q12H PRN Wound Care Temazepam 15 mg 04/25/19 01:00 04/25/19 22:15 Restoril PO Not Given QHS DHAVAL
[2019-04-26 18:44] LABS: BUN/Creatinine Ratio 25; Blood Urea Nitrogen 5 mg/dL (7-17); Hemolysis Index 82
[2019-04-26] MEDS: ATIVAN PO SCH (23:34)
[2019-04-26] MEDS: RESTORIL PO SCH (23:34)
[2019-04-27] MEDS: TYLENOL PO PRN ×2 (00:36→10:05)
[2019-04-27] MEDS: ATIVAN PO SCH ×2 (00:38→22:36)
[2019-04-27] MEDS: NACL 0.9% 1000 ML 1,000 ML IV SCH ×2 (02:46→23:06)
[2019-04-27] MEDS: MAXIPIME/NS 1 GM/100 ML 1 GM/100 ML BAG IV SCH ×3 (06:28→22:01)
[2019-04-27] MEDS: HEPARIN SUB-Q SCH ×3 (06:35→22:04)
--- NOTE | 2019-04-27 07:21 | Progress Note ---
Assessment and Plan Assessment and plan: 88 YO Female with OA, Seizure Disorder, Dementia, Debility, Anxiety, Chronic Pain to Right Hip, Sacral Decubitis Ulcer Present on Admission presents to ED for evaluation. Pt is unable to provide history. Pt history is provided by her daughter who is present at bedside during exam and interview. As per daughter the patient has experienced fever to 102.4 and has foul smelling drainage from her sacral wound, as well as redness over the past week with worsening symptoms over the past 4 days. Pt currently contracted, bedbound, nonambulatory and requires 6/6 Assistance with activities of daily living, with a pallative performance score of 30%. EMS notified and upon arrival the patient was found to be in distress and transported to [facility]. Pt seen and evaluated in ED and found to have SIRS secondary to Infected Sacral Decubitus Ulcer, Sacral Cellulitis, and Hyponatremia. Pt admitted to medical floor. Wound consult placed in ED. No further history obtainable. Prior admission on 03/06/19 reviewed. All listed medication reconciled at time of admission. Advanced care planning conducted in ED. Pt daughter acknowledges understanding and agreement with care plan. * Prior hx of home hospice * From prior visit, Patient also has small ulcers and erosions on the right knee and right rib cage left buttocks and left breasts, she also underwent debridement during the visit and was discharged back with home hospice on Augmentin. * patient has low BP chronically and was given midodrine. * Patients family rescinded hospice * Surgery team "had a long discussion with daughter regarding wound healing. With patient's current condition, it will likely take a very long time for these wounds to heal even if we proceed with aggressive treatment. I explained that other than wound care, patient will likely need additional debridements, possible feeding tube, MRI, charge master coordinator antibiotics, offloading, and even possibly a colostomy if the wound deteriorates further. Daughter/primary research lab assistant wants to proceed with aggressive treatment." * Pegtube placed 04/25/19 and patient tolerating tube feeds, * Per surgery "Will plan for sacral wound and right lateral chest wound debridement on Saturday 04/28 in the OR, NPO p MN on 04/27. Patient's daughter is agreeable. I explained that the wound on the sacrum with likely be 2 times larger after debridement. Consent obtained. * "Patient's nutritional status is worse than her prior admission. She has sacral osteomyelitis. 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 in the right hip joint space Sepsis Secondary to infected decubitus ulcer Sacral Osteomyelitis Pressure ulcer-POA Pressure injury stage: Unstagable at revaluation Pressure ulcer of unspecified site, stage 3; L08.9 - Local infection of the skin and subcutaneous tissue, unspecified Lateral chest wall wound Nausea with vomiting Osteoarthiritis Seizure Disorder Hyponatremia Acute cystitis-POA Advance care Planning: Case management also included to see if we can coordinate outpatient debridement with Woundcare clinic Severe Protein Calorie Malnutrition Dementia Bedbound DVT/GI prophy Plan Continue supportive care Cultures NOTED WITH PROTEUS, AND E.FECALIS IF CONTINUE VOMITING WILL STOP TUBE FEED ADVISED FAMILY TO STOP PO LIQUIDS FOR NOW DAUGHTER VERBALIZED UNDERSTANDING ABOUT DEBRIDEMENT AND ALSO MAY NOT BE ABLE TO PLACE ON WOUND VAC FOR SOMETIME DUE TO INFECTION AND UNFORTUNATELY COULD LEAD TO WORSENING ULCER DUE TO PATIENTS BEDBOUND STATUS Patient has indewelling lin catheter secondary to pressure ulcer and urinary incontinence Surgery consulted noted, for further debridement on sunday. ID input noted Pain control Offloading, frequent turning Track Grinder consult Woundcare Continue Abx Discussed extensively advanced care plan with patient and family Monitor Na level DVT/GI prophy Discussed with family Poor prognosis plan discussed with the daughter History Interval history: Patient seen and examined, daughters at bedside, Vomiting x 2 yesterday, clear liquid. Family given patient cups of fluid oral despite nursing asking them not to. patient asking to go home. Hospitalist Physical - Physical exam Narrative exam: General appearance: Present: mild distress, repeats the same question, wants to go home - EENT Eyes: Present: PERRL ENT: hearing intact, clear oral mucosa - Neck Neck: Present: supple, normal ROM - Respiratory Respiratory effort: normal Respiratory: bilateral: CTA - Cardiovascular Heart Sounds: Present: S1 & S2. Absent: rub, click - Extremities Extremities: pulses symmetrical, No edema Extremity abnormal: other (contracture, BUE/BLE) Peripheral Pulses: within normal limits - Abdominal General gastrointestinal: Present: soft, non-tender, non-distended, normal bowel sounds Female genitourinary: Present: normal - Integumentary Integumentary: Present: contracted warm, erythema, multiple decubitus ulcers, including knee and breast- see skin assessment for full description - Musculoskeletal Musculoskeletal: generalized weakness - Psychiatric Psychiatric: no appropriate mood/affect, no intact judgment & insight, no memory intact - Neurologic Neurologic: CNII-XII intact, no gait normal - Constitutional Vitals: Temp Pulse Resp BP Pulse Ox 98.7 F 99 H 18 103/58 100 04/27/19 03:28 04/27/19 03:28 04/27/19 03:28 04/27/19 03:28 04/27/19 03:28 General appearance: Present: no acute distress Results - Labs CBC & Chem 7: 04/24/19 05:13 04/26/19 17:28 Labs: Laboratory Last Values WBC 9.6 K/mm3 (4.5-11.0) 04/24/19 05:13 RBC 4.50 M/mm3 (3.65-5.03) 04/24/19 05:13 Hgb 11.4 gm/dl (10.1-14.3) 04/24/19 05:13 Hct 35.0 % (30.3-42.9) 04/24/19 05:13 MCV 78 fl (79-97) L 04/24/19 05:13 MCH 25 pg (28-32) L 04/24/19 05:13 MCHC 33 % (30-34) 04/24/19 05:13 RDW 14.3 % (13.2-15.2) 04/24/19 05:13 Plt Count 361 K/mm3 (140-440) 04/24/19 05:13 Lymph % (Auto) 24.1 % (13.4-35.0) 04/24/19 05:13 [place] % (Auto) 6.9 % (0.0-7.3) 04/24/19 05:13 Eos % (Auto) 2.4 % (0.0-4.3) 04/24/19 05:13 Baso % (Auto) 1.1 % (0.0-1.8) 04/24/19 05:13 Lymph # 2.3 K/mm3 (1.2-5.4) 04/24/19 05:13 [place] # 0.7 K/mm3 (0.0-0.8) 04/24/19 05:13 Eos # 0.2 K/mm3 (0.0-0.4) 04/24/19 05:13 Baso # 0.1 K/mm3 (0.0-0.1) 04/24/19 05:13 Seg Neutrophils % 65.5 % (40.0-70.0) 04/24/19 05:13 Seg Neutrophils # 6.3 K/mm3 (1.8-7.7) 04/24/19 05:13 PT 14.1 Sec. (12.2-14.9) 04/23/19 16:39 INR 1.12 (0.87-1.13) 04/23/19 16:39 APTT 26.0 Sec. (24.2-36.6) 04/23/19 16:39 Sodium 133 mmol/L (137-145) L 04/26/19 17:28 Potassium 3.8 mmol/L (3.6-5.0) 04/26/19 17:28 Chloride 98.4 mmol/L (98-107) 04/26/19 17:28 Carbon Dioxide 24 mmol/L (22-30) 04/26/19 17:28 14 mmol/L 04/26/19 17:28 BUN 5 mg/dL (7-17) L 04/26/19 17:28 < 0.2 mg/dL (0.7-1.2) L 04/26/19 17:28 Estimated GFR > 60 ml/min 04/26/19 17:28 25 % 04/26/19 17:28 Glucose 95 mg/dL (65-100) 04/26/19 17:28 POC Glucose 140 (70-105) H 04/27/19 06:24 Calcium 8.0 mg/dL (8.4-10.2) L 04/26/19 17:28 2.5 g/dL (3.9-5) L 04/25/19 03:09 0.074 g/L (0.200-0.400) L 04/25/19 03:09 Yellow (Yellow) 04/25/19 09:16 Cloudy (Clear) 04/25/19 09:16 6.0 (5.0-7.0) 04/25/19 09:16 Ur Specific [place] 1.017 (1.003-1.030) 04/25/19 09:16 <15 mg/dl mg/dL (Negative) 04/25/19 09:16 Neg mg/dL (Negative) 04/25/19 09:16 Neg mg/dL (Negative) 04/25/19 09:16 Sm (Negative) 04/25/19 09:16 Neg (Negative) 04/25/19 09:16 Neg (Negative) 04/25/19 09:16 < 2.0 mg/dL (<2.0) 04/25/19 09:16 Ur Leukocyte Esterase Lg (Negative) 04/25/19 09:16 67.0 /HPF (0.0-6.0) H 04/25/19 09:16 17.0 /HPF (0.0-6.0) 04/25/19 09:16 U Epithel Cells (Auto) 3.0 /HPF (0-13.0) 04/25/19 09:16 1+ /HPF (Negative) 04/25/19 09:16 Few /HPF 04/25/19 09:16 Active Medications - Current Medications Current Medications: Generic Name Dose Route Start Last Admin Trade Name Freq PRN Reason Stop Dose Admin Acetaminophen 650 mg 04/23/19 17:37 04/27/19 00:36 Tylenol PO 650 mg Q4H PRN Administration Pain MILD(1-3)/Fever >100.5/GASTELUM Albuterol 2.5 mg 04/23/19 17:37 Proventil IH Q4HRT PRN Shortness Of Breath Lipase/Protease/Amylase 1 each 04/26/19 09:25 Pancreaze 10,500 Unit FEEDTUBE PRN PRN For Clogged Feeding Tube Heparin Sodium (Porcine) 5,000 unit 04/24/19 14:00 04/27/19 06:35 Heparin SUB-Q 5,000 unit Q8HR DHAVAL Administration Vancomycin HCl 750 mg/ Sodium 265 mls @ 166.667 mls/hr 04/25/19 10:00 04/26/19 09:55 Chloride IV 166.667 mls/hr Q24HR DHAVAL Administration Sodium Chloride 1,000 mls @ 75 mls/hr 04/24/19 10:00 04/25/19 09:03 Nacl 0.9% 1000 Ml IV 75 mls/hr DIRECT DHAVAL Administration Dextrose/Sodium Chloride 1,000 mls @ 75 mls/hr 04/24/19 14:00 04/24/19 20:22 D5/0.45ns IV 75 mls/hr DIRECT DHAVAL Administration Sodium Chloride 1,000 mls @ 50 mls/hr 04/25/19 14:00 04/27/19 02:46 Nacl 0.9% 1000 Ml IV 50 mls/hr DIRECT DHAVAL Administration Cefepime HCl 1 gm in 100 mls @ 200 mls/hr 04/25/19 22:00 04/27/19 06:28 Maxipime/Ns 1 Gm/100 Ml IV 200 mls/hr Q8HR DHAVAL Administration Protocol Lorazepam 1 mg 04/25/19 01:00 04/27/19 00:38 Ativan PO 1 mg QHS DHAVAL Administration Midodrine 5 mg 04/24/19 08:00 04/26/19 16:59 Proamatine PO 5 mg TID@0800,1200,1600 DHAVAL Administration Ondansetron HCl 4 mg 04/23/19 17:37 04/27/19 00:35 Zofran IV 4 mg Q8H PRN Administration Nausea And Vomiting Potassium Chloride 20 meq 04/26/19 10:00 04/26/19 09:59 Potassium Chloride FEEDTUBE 20 meq QDAY DHAVAL Administration Simple Syrup 15 ml 04/26/19 09:25 Simple Syrup FEEDTUBE PRN PRN Hypoglycemia Simple Syrup 30 ml 04/26/19 09:25 Simple Syrup FEEDTUBE PRN PRN Hypoglycemia Sodium Bicarbonate 325 mg 04/26/19 09:25 Sodium Bicarbonate FEEDTUBE PRN PRN For Clogged Feeding Tube Sodium Chloride 10 ml 04/23/19 22:00 04/26/19 23:33 Sodium Chloride Flush Syringe 10 Ml IV 10 ml BID DHAVAL Administration Sodium Chloride 10 ml 04/23/19 17:37 Sodium Chloride Flush Syringe 10 Ml IV PRN PRN LINE FLUSH Sodium Hypochlorite 1 applic 04/24/19 10:23 Dakin's Half Strength TP Q12H PRN Wound Care Temazepam 15 mg 04/25/19 01:00 04/26/19 23:34 Restoril PO Not Given QHS DHAVAL Nutrition/Malnutrition Assess - Dietary Evaluation Nutrition/Malnutrition Findings: Nutrition Notes Start: 04/25/19 12:51 Freq: Status: Active Protocol: Document 04/26/19 09:23 LP (Rec: 04/26/19 09:42 LP [id number]) Nutrition Notes Initial or Follow up Reassessment Current Diagnosis Sepsis,Malnutrition,Stroke Other Pertinent Diagnosis Dementia, Debility, Hyponatremia, muliple wounds, seizure disorder Current Diet NPO Labs/Tests Reviewed Pertinent Medications Reviewed Height 5 ft Weight 57.6 kg [place] Body Weight (kg) 45.45 BMI 24.7 Subjective/Other Information Consult for TF. Pt has PEG placed. Burn Absent Trauma Absent Minimum of two criteria Yes Body Fat Depletion Mild depletion (non-severe) Muscle Mass Moderate Depletion (severe) Reduced Inside Trucker Strength Measurably Reduced (severe) #3 Nutrition Diagnosis Increased nutrient needs ( specify in comment below) Comments: Protein Etiology wound healing and malnutrition As Evidenced by Signs and Symptoms Pt with multiple wounds #2 Nutrition Diagnosis Inadequate oral intake Etiology dementia and inability to feed self As Evidenced by Signs and Symptoms PEG placed and needing TF #1 Nutrition Diagnosis Malnutrition Etiology Dementia and inability to feed self As Evidenced by Signs and Symptoms Pt noted with fat and muscle mass depletion and has reduced meter/relay technician strength Is patient on ventilator? No Is Patient Ambulatory and/or Out of Bed No REE-([facility]-confined to bed) 1120.752 Kcal/Kg value to use for calculation 25 Approximate Energy Requirements Using 1440 kcal/Kg Calculation Used for Recommendations Kcal/kg Additional Notes Protein needs are 69-86g (1.2- 1.5g/kg) Fluid needs are 1ml/kcal Nutrition Intervention Change Diet Order: TF Nutrition Support: Jevity 1.2 at 50ml/hr Flush with 75ml q4h Kcal 1,440 Protein (gm) 67 Fluid (mL) 968 Add Supplement/Snack (indicate name/kcal Regan BID /protein ) Provides kCal: 190 Provides Protein (gm) 5 Goal #1 Meet at least 80% of kcal and protein needs via TF Goal #2 Wound healing Anticipated Discharge Needs: TF with Regan BID Follow-Up By: 04/28/19 Additional Comments Follow for TF start/tolerance
[2019-04-27] MEDS: PROAMATINE PO SCH ×3 (08:25→16:55)
[2019-04-27] MEDS: SODIUM CHLORIDE FLUSH SYRINGE 10 ML IV SCH ×2 (09:55→22:09)
[2019-04-27] MEDS: POTASSIUM CHLORIDE FEEDTUBE SCH (09:55)
[2019-04-27] MEDS: VANCOMYCIN 750 MG in NACL 0.9% 250ML 250 ML IV SCH (09:55)
[2019-04-27] MEDS ORDERED: MIRALAX 3350 PO PRN (10:23)
[2019-04-27] MEDS: DAKIN'S HALF STRENGTH TP PRN (11:57)
[2019-04-27] MEDS: KEPPRA PO SCH (22:03)
[2019-04-27] MEDS: RESTORIL PO SCH (22:04)
[2019-04-28] MEDS: MAXIPIME/NS 1 GM/100 ML 1 GM/100 ML BAG IV SCH ×3 (05:19→21:51)
[2019-04-28] MEDS: HEPARIN SUB-Q SCH ×3 (05:45→22:06)
[2019-04-28] MEDS ORDERED: D50W (25GM) Syringe IV PRN (07:46)
--- NOTE | 2019-04-28 07:50 | Progress Note ---
Assessment and Plan Assessment and plan: 88 YO Female with OA, Seizure Disorder, Dementia, Debility, Anxiety, Chronic Pain to Right Hip, Sacral Decubitis Ulcer Present on Admission presents to ED for evaluation. Pt is unable to provide history. Pt history is provided by her daughter who is present at bedside during exam and interview. As per daughter the patient has experienced fever to 102.4 and has foul smelling drainage from her sacral wound, as well as redness over the past week with worsening symptoms over the past 4 days. Pt currently contracted, bedbound, nonambulatory and requires 6/6 Assistance with activities of daily living, with a pallative performance score of 30%. EMS notified and upon arrival the patient was found to be in distress and transported to [facility]. Pt seen and evaluated in ED and found to have SIRS secondary to Infected Sacral Decubitus Ulcer, Sacral Cellulitis, and Hyponatremia. Pt admitted to medical floor. Wound consult placed in ED. No further history obtainable. Prior admission on 03/06/19 reviewed. All listed medication reconciled at time of admission. Advanced care planning conducted in ED. Pt daughter acknowledges understanding and agreement with care plan. * Prior hx of home hospice * From prior visit, Patient also has small ulcers and erosions on the right knee and right rib cage left buttocks and left breasts, she also underwent debridement during the visit and was discharged back with home hospice on Augmentin. * patient has low BP chronically and was given midodrine. * Patients family rescinded hospice * Surgery team "had a long discussion with daughter regarding wound healing. With patient's current condition, it will likely take a very long time for these wounds to heal even if we proceed with aggressive treatment. I explained that other than wound care, patient will likely need additional debridements, possible feeding tube, MRI, intermediate frame tender antibiotics, offloading, and even possibly a colostomy if the wound deteriorates further. Daughter/primary family member caretaker wants to proceed with aggressive treatment." * Pegtube placed 04/25/19 and patient tolerating tube feeds, * Per surgery "Will plan for sacral wound and right lateral chest wound debridement on Saturday 04/28 in the OR, NPO p [place] on 04/27. Patient's daughter is agreeable. I explained that the wound on the sacrum with likely be 2 times larger after debridement. Consent obtained. * "Patient's nutritional status is worse than her prior admission. She has sacral osteomyelitis. 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 and synovitis in the right hip joint space Sepsis Secondary to infected decubitus ulcer Sacral Osteomyelitis Pressure ulcer-POA Pressure injury stage: Unstagable at revaluation Pressure ulcer of unspecified site, stage 3; L08.9 - Local infection of the skin and subcutaneous tissue, unspecified Lateral chest wall wound Nausea with vomiting Osteoarthiritis Seizure Disorder Hyponatremia Acute cystitis-POA Advance care Planning: Case management also included to see if we can coordinate outpatient debridement with Woundcare clinic Severe Protein Calorie Malnutrition Dementia Bedbound DVT/GI prophy Plan Continue supportive care Cultures NOTED WITH PROTEUS, AND E.FECALIS IF CONTINUE VOMITING WILL STOP TUBE FEED ADVISED FAMILY TO STOP PO LIQUIDS FOR NOW DAUGHTER VERBALIZED UNDERSTANDING ABOUT DEBRIDEMENT AND ALSO MAY NOT BE ABLE TO PLACE ON WOUND VAC FOR SOMETIME DUE TO INFECTION AND UNFORTUNATELY COULD LEAD TO WORSENING ULCER DUE TO PATIENTS BEDBOUND STATUS Patient has indewelling lin catheter secondary to pressure ulcer and urinary incontinence Surgery consulted noted, for further debridement on sunday. ID input noted Pain control Offloading, frequent turning Hotel Dining Room Cashier consult Woundcare Continue Abx Discussed extensively advanced care plan with patient and family Monitor Na level DVT/GI prophy Discussed with family Poor prognosis plan discussed with the daughter Hospitalist Physical - Constitutional Vitals: Temp Pulse Resp BP Pulse Ox 98.8 F 109 H 18 103/48 100 04/28/19 02:03 04/28/19 02:03 04/28/19 02:03 04/28/19 02:03 04/28/19 02:03 General appearance: Present: no acute distress Results - Labs CBC & Chem 7: 04/24/19 05:13 04/26/19 17:28 Labs: Laboratory Last Values WBC 9.6 K/mm3 (4.5-11.0) 04/24/19 05:13 RBC 4.50 M/mm3 (3.65-5.03) 04/24/19 05:13 Hgb 11.4 gm/dl (10.1-14.3) 04/24/19 05:13 Hct 35.0 % (30.3-42.9) 04/24/19 05:13 MCV 78 fl (79-97) L 04/24/19 05:13 MCH 25 pg (28-32) L 04/24/19 05:13 MCHC 33 % (30-34) 04/24/19 05:13 RDW 14.3 % (13.2-15.2) 04/24/19 05:13 Plt Count 361 K/mm3 (140-440) 04/24/19 05:13 Lymph % (Auto) 24.1 % (13.4-35.0) 04/24/19 05:13 [place] % (Auto) 6.9 % (0.0-7.3) 04/24/19 05:13 Eos % (Auto) 2.4 % (0.0-4.3) 04/24/19 05:13 Baso % (Auto) 1.1 % (0.0-1.8) 04/24/19 05:13 Lymph # 2.3 K/mm3 (1.2-5.4) 04/24/19 05:13 [place] # 0.7 K/mm3 (0.0-0.8) 04/24/19 05:13 Eos # 0.2 K/mm3 (0.0-0.4) 04/24/19 05:13 Baso # 0.1 K/mm3 (0.0-0.1) 04/24/19 05:13 Seg Neutrophils % 65.5 % (40.0-70.0) 04/24/19 05:13 Seg Neutrophils # 6.3 K/mm3 (1.8-7.7) 04/24/19 05:13 PT 14.1 Sec. (12.2-14.9) 04/23/19 16:39 INR 1.12 (0.87-1.13) 04/23/19 16:39 APTT 26.0 Sec. (24.2-36.6) 04/23/19 16:39 Sodium 133 mmol/L (137-145) L 04/26/19 17:28 Potassium 3.8 mmol/L (3.6-5.0) 04/26/19 17:28 Chloride 98.4 mmol/L (98-107) 04/26/19 17:28 Carbon Dioxide 24 mmol/L (22-30) 04/26/19 17:28 14 mmol/L 04/26/19 17:28 BUN 5 mg/dL (7-17) L 04/26/19 17:28 < 0.2 mg/dL (0.7-1.2) L 04/26/19 17:28 Estimated GFR > 60 ml/min 04/26/19 17:28 25 % 04/26/19 17:28 Glucose 95 mg/dL (65-100) 04/26/19 17:28 POC Glucose 263 (70-105) H 04/28/19 00:16 Calcium 8.0 mg/dL (8.4-10.2) L 04/26/19 17:28 2.5 g/dL (3.9-5) L 04/25/19 03:09 0.074 g/L (0.200-0.400) L 04/25/19 03:09 Yellow (Yellow) 04/25/19 09:16 Cloudy (Clear) 04/25/19 09:16 6.0 (5.0-7.0) 04/25/19 09:16 Ur Specific [place] 1.017 (1.003-1.030) 04/25/19 09:16 <15 mg/dl mg/dL (Negative) 04/25/19 09:16 Neg mg/dL (Negative) 04/25/19 09:16 Neg mg/dL (Negative) 04/25/19 09:16 Sm (Negative) 04/25/19 09:16 Neg (Negative) 04/25/19 09:16 Neg (Negative) 04/25/19 09:16 < 2.0 mg/dL (<2.0) 04/25/19 09:16 Ur Leukocyte Esterase Lg (Negative) 04/25/19 09:16 67.0 /HPF (0.0-6.0) H 04/25/19 09:16 17.0 /HPF (0.0-6.0) 04/25/19 09:16 U Epithel Cells (Auto) 3.0 /HPF (0-13.0) 04/25/19 09:16 1+ /HPF (Negative) 04/25/19 09:16 Few /HPF 04/25/19 09:16 Active Medications - Current Medications Current Medications: Generic Name Dose Route Start Last Admin Trade Name Freq PRN Reason Stop Dose Admin Acetaminophen 650 mg 04/23/19 17:37 04/27/19 10:05 Tylenol PO 650 mg Q4H PRN Administration Pain MILD(1-3)/Fever >100.5/GASTELUM Albuterol 2.5 mg 04/23/19 17:37 Proventil IH Q4HRT PRN Shortness Of Breath Lipase/Protease/Amylase 1 each 04/26/19 09:25 Pancreaze 10,500 Unit FEEDTUBE PRN PRN For Clogged Feeding Tube Dextrose 50 ml 04/28/19 07:46 D50w (25gm) Syringe IV PRN PRN Hypoglycemia Heparin Sodium (Porcine) 5,000 unit 04/24/19 14:00 04/28/19 05:45 Heparin SUB-Q Not Given Q8HR DHAVAL Vancomycin HCl 750 mg/ Sodium 265 mls @ 166.667 mls/hr 04/25/19 10:00 04/27/19 09:55 Chloride IV 166.667 mls/hr Q24HR DHAVAL Administration Sodium Chloride 1,000 mls @ 75 mls/hr 04/24/19 10:00 04/25/19 09:03 Nacl 0.9% 1000 Ml IV 75 mls/hr DIRECT DHAVAL Administration Dextrose/Sodium Chloride 1,000 mls @ 75 mls/hr 04/24/19 14:00 04/24/19 20:22 D5/0.45ns IV 75 mls/hr DIRECT DHAVAL Administration Sodium Chloride 1,000 mls @ 50 mls/hr 04/25/19 14:00 04/27/19 23:06 Nacl 0.9% 1000 Ml IV 50 mls/hr DIRECT DHAVAL Administration Cefepime HCl 1 gm in 100 mls @ 200 mls/hr 04/25/19 22:00 04/28/19 05:19 Maxipime/Ns 1 Gm/100 Ml IV 200 mls/hr Q8HR DHAVAL Administration Protocol Insulin Human Lispro 0 unit 04/28/19 08:00 Humalog SUB-Q Q6HR DHAVAL Protocol Levetiracetam 1,000 mg 04/27/19 22:00 04/27/19 22:03 Keppra PO 1,000 mg QHS DHAVAL Administration Lorazepam 1 mg 04/25/19 01:00 04/27/19 22:36 Ativan PO Not Given QHS DHAVAL Midodrine 5 mg 04/24/19 08:00 04/27/19 16:55 Proamatine PO 5 mg TID@0800,1200,1600 DHAVAL Administration Ondansetron HCl 4 mg 04/23/19 17:37 04/27/19 00:35 Zofran IV 4 mg Q8H PRN Administration Nausea And Vomiting Polyethylene Glycol 17 gm 04/27/19 10:23 Miralax 3350 PO BID PRN Constipation Potassium Chloride 20 meq 04/26/19 10:00 04/27/19 09:55 Potassium Chloride FEEDTUBE 20 meq QDAY DHAVAL Administration Simple Syrup 15 ml 04/26/19 09:25 Simple Syrup FEEDTUBE PRN PRN Hypoglycemia Simple Syrup 30 ml 04/26/19 09:25 Simple Syrup FEEDTUBE PRN PRN Hypoglycemia Sodium Bicarbonate 325 mg 04/26/19 09:25 Sodium Bicarbonate FEEDTUBE PRN PRN For Clogged Feeding Tube Sodium Chloride 10 ml 04/23/19 22:00 04/27/19 22:09 Sodium Chloride Flush Syringe 10 Ml IV 10 ml BID DHAVAL Administration Sodium Chloride 10 ml 04/23/19 17:37 Sodium Chloride Flush Syringe 10 Ml IV PRN PRN LINE FLUSH Sodium Hypochlorite 1 applic 04/24/19 10:23 04/27/19 11:57 Dakin's Half Strength TP 1 applicatio Q12H PRN Administration Wound Care Temazepam 15 mg 04/25/19 01:00 04/27/19 22:04 Restoril PO 15 mg QHS DHAVAL Administration Nutrition/Malnutrition Assess - Dietary Evaluation Nutrition/Malnutrition Findings: Nutrition Notes Start: 04/25/19 12:51 Freq: Status: Active Protocol: Document 04/26/19 09:23 LP (Rec: 04/26/19 09:42 LP [id number]) Nutrition Notes Initial or Follow up Reassessment Current Diagnosis Sepsis,Malnutrition,Stroke Other Pertinent Diagnosis Dementia, Debility, Hyponatremia, muliple wounds, seizure disorder Current Diet NPO Labs/Tests Reviewed Pertinent Medications Reviewed Height 5 ft Weight 57.6 kg [place] Body Weight (kg) 45.45 BMI 24.7 Subjective/Other Information Consult for TF. Pt has PEG placed. Burn Absent Trauma Absent Minimum of two criteria Yes Body Fat Depletion Mild depletion (non-severe) Muscle Mass Moderate Depletion (severe) Reduced Services Tech Strength Measurably Reduced (severe) #3 Nutrition Diagnosis Increased nutrient needs ( specify in comment below) Comments: Protein Etiology wound healing and malnutrition As Evidenced by Signs and Symptoms Pt with multiple wounds #2 Nutrition Diagnosis Inadequate oral intake Etiology dementia and inability to feed self As Evidenced by Signs and Symptoms PEG placed and needing TF #1 Nutrition Diagnosis Malnutrition Etiology Dementia and inability to feed self As Evidenced by Signs and Symptoms Pt noted with fat and muscle mass depletion and has reduced tool and die maker strength Is patient on ventilator? No Is Patient Ambulatory and/or Out of Bed No REE-([facility]-confined to bed) 1120.752 Kcal/Kg value to use for calculation 25 Approximate Energy Requirements Using 1440 kcal/Kg Calculation Used for Recommendations Kcal/kg Additional Notes Protein needs are 69-86g (1.2- 1.5g/kg) Fluid needs are 1ml/kcal Nutrition Intervention Change Diet Order: TF Nutrition Support: Jevity 1.2 at 50ml/hr Flush with 75ml q4h Kcal 1,440 Protein (gm) 67 Fluid (mL) 968 Add Supplement/Snack (indicate name/kcal Regan BID /protein ) Provides kCal: 190 Provides Protein (gm) 5 Goal #1 Meet at least 80% of kcal and protein needs via TF Goal #2 Wound healing Anticipated Discharge Needs: TF with Regan BID Follow-Up By: 04/28/19 Additional Comments Follow for TF start/tolerance
[2019-04-28] MEDS: HumaLOG SUB-Q SCH ×3 (08:32→20:56)
[2019-04-28] MEDS: PROAMATINE PO SCH ×3 (09:33→16:58)
[2019-04-28] MEDS: POTASSIUM CHLORIDE FEEDTUBE SCH (10:17)
[2019-04-28] MEDS: SODIUM CHLORIDE FLUSH SYRINGE 10 ML IV SCH ×2 (10:34→23:34)
[2019-04-28] MEDS: VANCOMYCIN 750 MG in NACL 0.9% 250ML 250 ML IV SCH ×2 (10:35→15:25)
[2019-04-28 11:19] LABS: BUN/Creatinine Ratio 65; Blood Urea Nitrogen 13 mg/dL (7-17); Calcium 8.3 mg/dL (8.4-10.2); Hemolysis Index 18
[2019-04-28] MEDS ORDERED: SUBLIMAZE ONE (11:37)
[2019-04-28] MEDS ORDERED: DIPRIVAN 10 MG/ML IV ONE (11:38)
[2019-04-28] MEDS ORDERED: LACTATED RINGERS 1,000 ML IV SCH (12:00)
[2019-04-28] MEDS ORDERED: PHENYLEPHRINE/NS Syringe 1,000 MCG/10 ML IV ONE (12:08)
[2019-04-28] MEDS ORDERED: XYLOCAINE MPF 2% ONE (12:08)
[2019-04-28] MEDS ORDERED: NACL 0.9% IR ONE (12:30)
[2019-04-28] MEDS ORDERED: XYLOCAINE 1% 20 mL INFILTRATI ONE (12:30)
[2019-04-28] MEDS ORDERED: MARCAINE 0.5% INFILTRATI ONE (12:30)
--- NOTE | 2019-04-28 12:34 | Progress Note ---
Assessment and Plan Cultures: 04/23 BCx: NGTD 04/23 wound Cx: GNR pending finalization A/P:88 yo M PMHx dementia, debility, seizures disorder, chronic pain, and chronic sacral decubitus ulcer admitted with wound infection and osteomyelitis. 1. Acute sepsis - present on admission with leukocytosis and tachycardia (now resolved) due to wound infection 2. Wound infection - GNR growing from wound, but polymicrobial stain. Recommend continuing vancomycin and cefepime pending culture finalization. She is a weekly patient of Dr. Hummel for wound care. For debridement on Sunday. I would continue the IV cefepime and vancomycin pending the debridement and any findings therein. Afterwards, given the cultures growing P mirabilis and Enterococcus would consider de-escalating to Augmentin for discharge. As per below, I do not recommend 6 weeks of IV antibiotics as I do not believe that is in the patient's best interest. 3. Sacral osteomyelitis - Discussed at length with patient's daughter. Discussed that while we can treat the wound infection as above, we are unlikely to be able to clear the osteomyelitis given there is an open wound that likely probes to bone. Even if we are able to "cure" the osteomyelitis, she is likely to become re-infected due to poor source control. I recommended to her that we only treat the wound and bone to avoid futile prolonged antibiotic exposure. I attempted to impress upon her the overall poor prognosis of her mother's condition: that while we can treat the current infection, given the wounds, her advanced age, and debility these infections are likely to recur and there is little chance of preventing them. Strongly recommend they re-consider hospice. 4. Chronic debility 5. Chronic dementia - poor baseline mentation 6. Seizure disorder Recs: - continue cefepime q8h - continue vancomycin dosed per pharmacy. Appreciate their assistance. Goal trough 15-20 - monitor renal function while on vancomycin - follow up blood and wound cultures - for debridement on Sunday. - Recommend hospice care. - Can de-escalate to Augmentin 875/125mg BID when stable after debridement. Thank you for the consult, we will continue to follow. Grayson Parham MD [facility] ([facility] M: [phone] O: [phone] F: [phone] Subjective Date of service: 04/28/19 Interval history: No acute change at this time. For debridement today. Objective - Exam Narrative Exam: Physical Exam: Constitutional: Awake, disoriented Head, Ears, Nose: Normocephalic, atraumatic. External ears, nose normal Eyes: Conjunctivae/corneas clear. No icterus. No ptosis. Neck: Supple, no meningeal signs Oral: dentition fair, no thrush Cardiovascular: S1, S2 normal. Respiratory: Good air entry, clear to auscultation bilaterally GI: Soft, non-tender; bowel sounds normal. No peritoneal signs. Musculoskeletal: No pedal edema, no cyanosis. bilateral UE contractures. Skin: No rash or abscess Hem/Lymphatic: No palpable cervical or supraclavicular nodes. No lymphangitis Psych: Mood ok. Affect normal Neurological: verbal, incoherent, disoriented. - Constitutional Vitals: Vital Signs Temp Pulse Resp BP Pulse Ox 98.7 F 97 H 20 128/53 100 04/28/19 07:26 04/28/19 10:00 04/28/19 07:26 04/28/19 07:26 04/28/19 07:26 Temperature -Last 24 Hours Temperature 98.7 F Temperature 98.8 F Temperature 98.0 F Temperature 98.1 F - Labs CBC & Chem 7: 04/24/19 05:13 04/28/19 10:48 Labs: Abnormal lab results 04/27/19 04/28/19 04/28/19 Range/Units 18:53 00:16 08:35 Sodium (137-145) mmol/L Potassium (3.6-5.0) mmol/L Creatinine (0.7-1.2) mg/dL Glucose (65-100) mg/dL POC Glucose 228 H 263 H 136 H (70-105) Calcium (8.4-10.2) mg/dL 04/28/19 Range/Units 10:48 Sodium 134 L (137-145) mmol/L Potassium 3.5 L (3.6-5.0) mmol/L Creatinine < 0.2 L (0.7-1.2) mg/dL Glucose 115 H (65-100) mg/dL POC Glucose (70-105) Calcium 8.3 L (8.4-10.2) mg/dL
--- NOTE | 2019-04-28 12:52 | Anesthesia Day of Surgery ---
Anesthesia Day of Surgery - Day of Surgery Patient Examined: Yes Patient H&P Reviewed: Yes Patient is NPO: Yes
--- NOTE | 2019-04-28 12:55 | Post Operative Note ---
Date of procedure: 04/28/19 Pre-op diagnosis: infected sacral wound, right lateral chest wall wound Post-op diagnosis: same Findings: Preop measurements: Sacrum: 3x3x2 R lateral chest wall: 3.5 x 2 x 0.8 Post op measurements: Sacrum: 7cm x9cm x2.8cm R lateral chest wall: 4.2 x 2 x 1.8 Procedure: excisional debridement of stage 4 sacral wound excisional debridement of right lateral chest wall wound Anesthesia: MAC, local Surgeon: PAULO HOUSTON Estimated blood loss: minimal Pathology: list (sacral wound deep cultures) Specimen disposition: to lab Condition: stable Disposition: PACU
--- NOTE | 2019-04-28 13:20 | Operative Report ---
Operative Report Operative Report: Date of procedure: 04/28/19 Pre-op diagnosis: infected sacral wound, right lateral chest wall wound Post-op diagnosis: same Findings: Preop measurements: Sacrum: 3x3x2 R lateral chest wall: 3.5 x 2 x 0.8 Post op measurements: Sacrum: 7cm x9cm x2.8cm R lateral chest wall: 4.2 x 2 x 1.8 Procedure: excisional debridement of stage 4 sacral wound excisional debridement of right lateral chest wall wound Anesthesia: MAC, local Surgeon: PAULO HOUSTON Estimated blood loss: minimal Pathology: list (sacral wound deep cultures) Specimen disposition: to lab Condition: stable Disposition: PACU HPI and indication: 88 yo F with dementia, bedbound presented to hospital for copious drainage from her sacral wound. Patient found to have infection, osteomyelitis. She has multiple decubitus wounds. Debridement of sacral wound and right lateral chest wound was recommended. All risks, benefits, alternatives to surgery discussed with patient's daughter who is her primary healthcare administrator and consent obtained. Procedure in detail: Patient identified in the preop area and taken back to the operative room. She was placed on the OR table and positioned in right lateral decubitus position. Haro bag inflated and pillows placed between legs and arms, shoulder roll placed. The right lateral chest wall and sacrum were prepped with betadine and draped in the usual fashion. Skin anesthetized with local anesthetic. Excisional debridement of the right lateral chest wall wound was performed using foreceps and bovie electrocautery. All necrotic subcutaneous tissue was excised. Hemostasis achieved with pressure and electrocautery. Wound irrigated and packed with 1 piece of dakins moistened kerlix. Covered with 4x4 gauze and medipore tape. I then turned my attention to debridement of sacral wound. Skin anesthetized with local anesthetic. Excisional debridement of skin, subcutaneous tissue, fascia and bone was performed using a combination of foreceps, 10 blade, curette, rongeur, scissors and electrocautery. All devitalized tissue was removed. All skin over undermined areas was removed. Deep cultures were obtained. Hemostasis achieved using electrocautery. Wound irrigated with saline. Surgical was placed over the exposed bone to further aid with hemostasis. No bleeding seen from wound. Wound packed with 1 piece of kerlix moistened with dakins. Covered with 4x4 gauze, ABD pad and tape. At the end of the case, all sponge, instrument, sharp counts were correct x 2. The patient was awoken from anesthesia and transferred to the bed in stable position.
--- NOTE | 2019-04-28 14:19 | Post Anesthesia Evaluation ---
- Post Anesthesia Evaluation Patient Participated: Yes Airway Patent: Yes Stable Respiratory Function: Yes Nausea/Vomiting: No Temp > 96.8F: Yes Pain Manageable: Yes Adequeate Hydration: Yes Anesthesia Complications: No Block Receding Appropriately: Not Applicable Patient on Ventilator: No
--- NOTE | 2019-04-28 15:22 | Discharge Summary ---
Providers - Providers Date of Admission: 04/23/19 17:38 Attending physician: BELINDA SABA MD 04/23/19 18:25 Consult to Wound/ET Nurse [CONS] Routine Reason For Exam: wound eval 04/24/19 09:56 Consult to Physician [CONS] Routine Comment: called office/ shahana Consulting Provider: PAULO HOUSTON Physician Instructions: Reason For Exam: infected decub ulcer 04/24/19 13:31 Consult to Dietitian/Nutrition [CONS] Routine Physician Instructions: Reason For Exam: Reason for Consult: Malnutrition 04/25/19 07:22 Consult to Physician [CONS] Routine Comment: Consulting Provider: BETTYE MINOR Physician Instructions: Reason For Exam: SPESIS 04/25/19 11:08 Consult to Physician [CONS] Routine Comment: Consulting Provider: TONI LEVINE Physician Instructions: Reason For Exam: PEG tube eval 04/25/19 15:06 Consult to Dietitian/Nutrition [CONS] Routine Physician Instructions: Reason For Exam: Reason for Consult: post-peg Primary care physician: KIET VALLEJO Hospitalization Condition: Fair Hospital course: 88 YO Female with OA, Seizure Disorder, Dementia, Debility, Anxiety, Chronic Pain to Right Hip, Sacral Decubitis Ulcer Present on Admission presents to ED for evaluation. Pt is unable to provide history. Pt history is provided by her daughter who is present at bedside during exam and interview. As per daughter the patient has experienced fever to 102.4 and has foul smelling drainage from her sacral wound, as well as redness over the past week with worsening symptoms over the past 4 days. Pt currently contracted, bedbound, nonambulatory and requires 6/6 Assistance with activities of daily living, with a pallative performance score of 30%. EMS notified and upon arrival the patient was found to be in distress and transported to [facility]. Pt seen and evaluated in ED and found to have SIRS secondary to Infected Sacral Decubitus Ulcer, Sacral Cellulitis, and Hyponatremia. Pt admitted to medical floor. Wound consult placed in ED. No further history obtainable. Prior admission on 03/06/19 reviewed. All listed medication reconciled at time of admission. Advanced care planning conducted in ED. Pt daughter acknowledges understanding and agreement with care plan. * Prior hx of home hospice * From prior visit, Patient also has small ulcers and erosions on the right knee and right rib cage left buttocks and left breasts, she also underwent debridement during the visit and was discharged back with home hospice on Augmentin. * patient has low BP chronically and was given midodrine. * Patients family rescinded hospice * Surgery team "had a long discussion with daughter regarding wound healing. With patient's current condition, it will likely take a very long time for these wounds to heal even if we proceed with aggressive treatment. I explained that other than wound care, patient will likely need additional debridements, possible feeding tube, MRI, snf antibiotics, offloading, and even possibly a colostomy if the wound deteriorates further. Daughter/primary wooden frame builder wants to proceed with aggressive treatment." * Pegtube placed 04/25/19 and patient tolerating tube feeds, * Patient undewent sacral wound and right lateral chest wound debridement on Saturday 04/28 * Cleared for discharge, Dakins will be used for woundcare and then attempt to place wound vac in about a week * "Patient's nutritional status is worse than her prior admission. She has sacral osteomyelitis. 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 and synovitis in the right hip joint space Sepsis Secondary to infected decubitus ulcer Sacral Osteomyelitis Pressure ulcer-POA Pressure injury stage: Unstagable at revaluation Pressure ulcer of unspecified site, stage 3; L08.9 - Local infection of the skin and subcutaneous tissue, unspecified Lateral chest wall wound Nausea with vomiting Osteoarthiritis Seizure Disorder Hyponatremia Acute cystitis-POA Advance care Planning: Case management also included to see if we can coordinate outpatient debridement with Woundcare clinic Severe Protein Calorie Malnutrition Dementia Bedbound DVT/GI prophy Plan Continue supportive care Cultures NOTED WITH PROTEUS, AND E.FECALIS IF CONTINUE VOMITING WILL STOP TUBE FEED ADVISED FAMILY TO STOP PO LIQUIDS FOR NOW DAUGHTER VERBALIZED UNDERSTANDING ABOUT DEBRIDEMENT AND ALSO MAY NOT BE ABLE TO PLACE ON WOUND VAC FOR SOMETIME DUE TO INFECTION AND UNFORTUNATELY COULD LEAD TO WORSENING ULCER DUE TO PATIENTS BEDBOUND STATUS Patient has indewelling lin catheter secondary to pressure ulcer and urinary incontinence Surgery consulted noted, for further debridement on sunday. ID input noted Pain control Offloading, frequent turning Junior Data Analyst consult Woundcare Continue Abx Discussed extensively advanced care plan with patient and family Monitor Na level DVT/GI prophy Discussed with family Poor prognosis plan discussed with the daughter Disposition: [id number] HOME UNDER HOME HLTH Exam - Constitutional Vitals: Temp Pulse Resp BP Pulse Ox 98.3 F 95 H 17 102/57 98 04/28/19 13:45 04/28/19 13:45 04/28/19 13:45 04/28/19 13:45 04/28/19 13:45 Plan Activity: advance as tolerated, fall precautions Diet: regular Wound: per your surgeon's advice, per wound nurse instructions Special Instructions: record daily BP diary Additional Instructions: follow up at wound care clinic in 2-3 days Follow up with: KIET VALLEJO MD [Primary Care Provider] - 3-5 Days BETTYE MINOR MD [Staff Physician] - 7 Days PAULO HOUSTON DO [Staff Physician] - 7 Days Prescriptions: Amoxicillin/K Clav Tab [Augmentin 875MG TAB] 1 tab PO Q12HR #28 tab HYDROcodone/APAP 7.5-325 [[place] 7.5-325 mg TAB] 7.5 - 325 mg PO Q6H #14 tablet
--- NOTE | 2019-04-28 15:50 | Progress Note ---
Assessment and Plan Assessment and plan: 88 YO Female with OA, Seizure Disorder, Dementia, Debility, Anxiety, Chronic Pain to Right Hip, Sacral Decubitis Ulcer Present on Admission presents to ED for evaluation. Pt is unable to provide history. Pt history is provided by her daughter who is present at bedside during exam and interview. As per daughter the patient has experienced fever to 102.4 and has foul smelling drainage from her sacral wound, as well as redness over the past week with worsening symptoms over the past 4 days. Pt currently contracted, bedbound, nonambulatory and requires 6/6 Assistance with activities of daily living, with a pallative performance score of 30%. EMS notified and upon arrival the patient was found to be in distress and transported to [facility]. Pt seen and evaluated in ED and found to have SIRS secondary to Infected Sacral Decubitus Ulcer, Sacral Cellulitis, and Hyponatremia. Pt admitted to medical floor. Wound consult placed in ED. No further history obtainable. Prior admission on 03/06/19 reviewed. All listed medication reconciled at time of admission. Advanced care planning conducted in ED. Pt daughter acknowledges understanding and agreement with care plan. * Prior hx of home hospice * From prior visit, Patient also has small ulcers and erosions on the right knee and right rib cage left buttocks and left breasts, she also underwent debridement during the visit and was discharged back with home hospice on Augmentin. * patient has low BP chronically and was given midodrine. * Patients family rescinded hospice * Surgery team "had a long discussion with daughter regarding wound healing. With patient's current condition, it will likely take a very long time for these wounds to heal even if we proceed with aggressive treatment. I explained that other than wound care, patient will likely need additional debridements, possible feeding tube, MRI, cardiovascular tech antibiotics, offloading, and even possibly a colostomy if the wound deteriorates further. Daughter/primary respiratory physician wants to proceed with aggressive treatment." * Pegtube placed 04/25/19 and patient tolerating tube feeds, * Patient undewent sacral wound and right lateral chest wound debridement on Saturday 04/28 * Cleared for discharge, Dakins will be used for woundcare and then attempt to place wound vac in about a week * "Patient's nutritional status is worse than her prior admission. She has sacral osteomyelitis. 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 and synovitis in the right hip joint space Sepsis Secondary to infected decubitus ulcer Sacral Osteomyelitis Pressure ulcer-POA Pressure injury stage: Unstagable at revaluation Pressure ulcer of unspecified site, stage 3; L08.9 - Local infection of the skin and subcutaneous tissue, unspecified Lateral chest wall wound Nausea with vomiting Osteoarthiritis Seizure Disorder Hyponatremia Acute cystitis-POA Advance care Planning: Case management also included to see if we can coordinate outpatient debridement with Woundcare clinic Severe Protein Calorie Malnutrition Dementia Bedbound DVT/GI prophy Plan Continue supportive care Cultures NOTED WITH PROTEUS, AND E.FECALIS Abx for at least 2 weeks,. Follow with Surgery, at wound clinc and with ID Patient has indewelling lin catheter secondary to pressure ulcer and urinary incontinence ID input noted Pain control Offloading, frequent turning Tape Deck Installer consult Woundcare Continue Abx Discussed extensively advanced care plan with patient and family Monitor Na level DVT/GI prophy Discussed with family Poor prognosis plan discussed with the daughter Daughter appealing discharge. History Interval history: Patient seen and examined, daughters at bedside, Vomiting x 2 yesterday, clear liquid. Family given patient cups of fluid oral despite nursing asking them not to. patient asking to go home. Patient is s/p debridment today, no complications noted Hospitalist Physical - Physical exam Narrative exam: General appearance: Present: mild distress, repeats the same question, wants to go home - EENT Eyes: Present: PERRL ENT: hearing intact, clear oral mucosa - Neck Neck: Present: supple, normal ROM - Respiratory Respiratory effort: normal Respiratory: bilateral: CTA - Cardiovascular Heart Sounds: Present: S1 & S2. Absent: rub, click - Extremities Extremities: pulses symmetrical, No edema Extremity abnormal: other (contracture, BUE/BLE) Peripheral Pulses: within normal limits - Abdominal General gastrointestinal: Present: soft, non-tender, non-distended, normal bowel sounds Female genitourinary: Present: normal - Integumentary Integumentary: Present: contracted warm, erythema, multiple decubitus ulcers, DRESSING INPLACE, FOLLOWING DEBRIDEMENT TODAY, CIRCUMFERENCE MUCH LARGER. including knee and breast- see skin assessment for full description - Musculoskeletal Musculoskeletal: generalized weakness - Psychiatric Psychiatric: no appropriate mood/affect, no intact judgment & insight, no memory intact - Neurologic Neurologic: CNII-XII intact, no gait normal - Constitutional Vitals: Temp Pulse Resp BP Pulse Ox 98.3 F 95 H 17 102/57 98 04/28/19 13:45 04/28/19 13:45 04/28/19 13:45 04/28/19 13:45 04/28/19 13:45 General appearance: Present: no acute distress Results - Labs CBC & Chem 7: 04/24/19 05:13 04/28/19 10:48 Labs: Laboratory Last Values WBC 9.6 K/mm3 (4.5-11.0) 04/24/19 05:13 RBC 4.50 M/mm3 (3.65-5.03) 04/24/19 05:13 Hgb 11.4 gm/dl (10.1-14.3) 04/24/19 05:13 Hct 35.0 % (30.3-42.9) 04/24/19 05:13 MCV 78 fl (79-97) L 04/24/19 05:13 MCH 25 pg (28-32) L 04/24/19 05:13 MCHC 33 % (30-34) 04/24/19 05:13 RDW 14.3 % (13.2-15.2) 04/24/19 05:13 Plt Count 361 K/mm3 (140-440) 04/24/19 05:13 Lymph % (Auto) 24.1 % (13.4-35.0) 04/24/19 05:13 [place] % (Auto) 6.9 % (0.0-7.3) 04/24/19 05:13 Eos % (Auto) 2.4 % (0.0-4.3) 04/24/19 05:13 Baso % (Auto) 1.1 % (0.0-1.8) 04/24/19 05:13 Lymph # 2.3 K/mm3 (1.2-5.4) 04/24/19 05:13 [place] # 0.7 K/mm3 (0.0-0.8) 04/24/19 05:13 Eos # 0.2 K/mm3 (0.0-0.4) 04/24/19 05:13 Baso # 0.1 K/mm3 (0.0-0.1) 04/24/19 05:13 Seg Neutrophils % 65.5 % (40.0-70.0) 04/24/19 05:13 Seg Neutrophils # 6.3 K/mm3 (1.8-7.7) 04/24/19 05:13 PT 14.1 Sec. (12.2-14.9) 04/23/19 16:39 INR 1.12 (0.87-1.13) 04/23/19 16:39 APTT 26.0 Sec. (24.2-36.6) 04/23/19 16:39 Sodium 134 mmol/L (137-145) L 04/28/19 10:48 Potassium 3.5 mmol/L (3.6-5.0) L 04/28/19 10:48 Chloride 100.7 mmol/L (98-107) 04/28/19 10:48 Carbon Dioxide 25 mmol/L (22-30) 04/28/19 10:48 12 mmol/L 04/28/19 10:48 BUN 13 mg/dL (7-17) 04/28/19 10:48 < 0.2 mg/dL (0.7-1.2) L 04/28/19 10:48 Estimated GFR > 60 ml/min 04/28/19 10:48 65 % 04/28/19 10:48 Glucose 115 mg/dL (65-100) H 04/28/19 10:48 POC Glucose 136 (70-105) H 04/28/19 08:35 Calcium 8.3 mg/dL (8.4-10.2) L 04/28/19 10:48 2.5 g/dL (3.9-5) L 04/25/19 03:09 0.074 g/L (0.200-0.400) L 04/25/19 03:09 Yellow (Yellow) 04/25/19 09:16 Cloudy (Clear) 04/25/19 09:16 6.0 (5.0-7.0) 04/25/19 09:16 Ur Specific [place] 1.017 (1.003-1.030) 04/25/19 09:16 <15 mg/dl mg/dL (Negative) 04/25/19 09:16 Neg mg/dL (Negative) 04/25/19 09:16 Neg mg/dL (Negative) 04/25/19 09:16 Sm (Negative) 04/25/19 09:16 Neg (Negative) 04/25/19 09:16 Neg (Negative) 04/25/19 09:16 < 2.0 mg/dL (<2.0) 04/25/19 09:16 Ur Leukocyte Esterase Lg (Negative) 04/25/19 09:16 67.0 /HPF (0.0-6.0) H 04/25/19 09:16 17.0 /HPF (0.0-6.0) 04/25/19 09:16 U Epithel Cells (Auto) 3.0 /HPF (0-13.0) 04/25/19 09:16 1+ /HPF (Negative) 04/25/19 09:16 Few /HPF 04/25/19 09:16 Vancomycin Trough 6.3 ug/mL (5.0-20.0) 04/28/19 10:48 Active Medications - Current Medications Current Medications: Generic Name Dose Route Start Last Admin Trade Name Freq PRN Reason Stop Dose Admin Acetaminophen 650 mg 04/23/19 17:37 04/27/19 10:05 Tylenol PO 650 mg Q4H PRN Administration Pain MILD(1-3)/Fever >100.5/GASTELUM Albuterol 2.5 mg 04/23/19 17:37 Proventil IH Q4HRT PRN Shortness Of Breath Lipase/Protease/Amylase 1 each 04/26/19 09:25 Pancredenzele 10,500 Unit FEEDTUBE PRN PRN For Clogged Feeding Tube Dextrose 50 ml 04/28/19 07:46 D50w (25gm) Syringe IV PRN PRN Hypoglycemia Heparin Sodium (Porcine) 5,000 unit 04/24/19 14:00 04/28/19 14:11 Heparin SUB-Q 5,000 unit Q8HR DHAVAL Administration Sodium Chloride 1,000 mls @ 75 mls/hr 04/24/19 10:00 04/25/19 09:03 Nacl 0.9% 1000 Ml IV 75 mls/hr DIRECT DHAVAL Administration Dextrose/Sodium Chloride 1,000 mls @ 75 mls/hr 04/24/19 14:00 04/24/19 20:22 D5/0.45ns IV 75 mls/hr DIRECT DHAVAL Administration Sodium Chloride 1,000 mls @ 50 mls/hr 04/25/19 14:00 04/27/19 23:06 Nacl 0.9% 1000 Ml IV 50 mls/hr DIRECT DHAVAL Administration Cefepime HCl 1 gm in 100 mls @ 200 mls/hr 04/25/19 22:00 04/28/19 14:20 Maxipime/Ns 1 Gm/100 Ml IV 200 mls/hr Q8HR DHAVAL Administration Protocol Vancomycin HCl 750 mg/ Sodium 265 mls @ 166.667 mls/hr 04/28/19 16:00 04/28/19 15:25 Chloride IV 166.667 mls/hr Q12H DHAVAL Administration Insulin Human Lispro 0 unit 04/28/19 08:00 04/28/19 12:07 Humalog SUB-Q Not Given Q6HR [facility] Protocol Levetiracetam 1,000 mg 04/27/19 22:00 04/27/19 22:03 Keppra PO 1,000 mg QHS DHAVAL Administration Lorazepam 1 mg 04/25/19 01:00 04/27/19 22:36 Ativan PO Not Given QHS DHAVAL Midodrine 5 mg 04/24/19 08:00 04/28/19 12:08 Proamatine PO Not Given TID@0800,1200,1600 DHAVAL Ondansetron HCl 4 mg 04/23/19 17:37 04/27/19 00:35 Zofran IV 4 mg Q8H PRN Administration Nausea And Vomiting Polyethylene Glycol 17 gm 04/27/19 10:23 Miralax 3350 PO BID PRN Constipation Potassium Chloride 20 meq 04/26/19 10:00 04/28/19 10:17 Potassium Chloride FEEDTUBE Not Given QDAY DHAVAL Simple Syrup 15 ml 04/26/19 09:25 Simple Syrup FEEDTUBE PRN PRN Hypoglycemia Simple Syrup 30 ml 04/26/19 09:25 Simple Syrup FEEDTUBE PRN PRN Hypoglycemia Sodium Bicarbonate 325 mg 04/26/19 09:25 Sodium Bicarbonate FEEDTUBE PRN PRN For Clogged Feeding Tube Sodium Chloride 10 ml 04/23/19 22:00 04/28/19 10:34 Sodium Chloride Flush Syringe 10 Ml IV Not Given BID DHAVAL Sodium Chloride 10 ml 04/23/19 17:37 Sodium Chloride Flush Syringe 10 Ml IV PRN PRN LINE FLUSH Sodium Hypochlorite 1 applic 04/24/19 10:23 04/27/19 11:57 Dakin's Half Strength TP 1 applicatio Q12H PRN Administration Wound Care Temazepam 15 mg 04/25/19 01:00 04/27/19 22:04 Restoril PO 15 mg QHS DHAVAL Administration Nutrition/Malnutrition Assess - Dietary Evaluation Nutrition/Malnutrition Findings: Nutrition Notes Start: 04/25/19 12:51 Freq: Status: Active Protocol: Document 04/28/19 15:01 RM (Rec: 04/28/19 15:09 [id number]) Nutrition Notes Initial or Follow up Reassessment Current Diagnosis Sepsis,Malnutrition,Stroke Other Pertinent Diagnosis Dementia, Debility, Hyponatremia, muliple wounds, seizure disorder Current Diet NPO Labs/Tests Reviewed Pertinent Medications Zofran Height 5 ft Weight 61 kg [place] Body Weight (kg) 45.45 BMI 26.2 Subjective/Other Information Pt not in room and no TF formula hanging. TF on hold at time of visit for wound debridement. Case management stated pt planned to D/C and tomorrow requested bolus regemin for home. Burn Absent Trauma Absent Minimum of two criteria Yes Body Fat Depletion Mild depletion (non-severe) Muscle Mass Moderate Depletion (severe) #3 Nutrition Diagnosis Increased nutrient needs ( specify in comment below) Diagnosis Progress(for reassessment Continues documentation) #2 Nutrition Diagnosis Inadequate oral intake Diagnosis Progress(for reassessment Continues documentation) #1 Nutrition Diagnosis Malnutrition Diagnosis Progress(for reassessment Continues documentation) Is patient on ventilator? No Is Patient Ambulatory and/or Out of Bed No REE-([facility]-confined to bed) 1161.516 Kcal/Kg value to use for calculation 25 Approximate Energy Requirements Using 1525 kcal/Kg Calculation Used for Recommendations Kcal/kg Additional Notes Protein needs are 69-86g (1.2- 1.5g/kg) Fluid needs are 1ml/kcal Nutrition Intervention Nutrition Support: Jevity 5 cartons daily
[2019-04-28] MEDS: NACL 0.9% 1000 ML 1,000 ML IV SCH (21:50)
[2019-04-28] MEDS: KEPPRA PO SCH (22:01)
[2019-04-28] MEDS: ATIVAN PO SCH (23:30)
[2019-04-28] MEDS: RESTORIL PO SCH (23:30)
[2019-04-29] MEDS: HumaLOG SUB-Q SCH ×5 (00:34→18:06)
[2019-04-29] MEDS: MAXIPIME/NS 1 GM/100 ML 1 GM/100 ML BAG IV SCH ×3 (05:27→22:28)
[2019-04-29] MEDS: HEPARIN SUB-Q SCH ×3 (05:29→22:29)
[2019-04-29] MEDS: VANCOMYCIN 750 MG in NACL 0.9% 250ML 250 ML IV SCH ×2 (05:38→15:36)
[2019-04-29] MEDS: PROAMATINE PO SCH ×3 (07:53→16:33)
[2019-04-29 08:02] LABS: Hematocrit 30.9 % (30.3-42.9); Hemoglobin 10.1 gm/dl (10.1-14.3); Mean Corpuscular HGB Conc 33 % (30-34); Mean Corpuscular Volume 78 fl (79-97); Platelet Count 309 K/mm3 (140-440); Red Blood Count 3.94 M/mm3 (3.65-5.03); Red Cell Distribution Width 14.5 % (13.2-15.2)
[2019-04-29 08:25] LABS: BUN/Creatinine Ratio 60; Blood Urea Nitrogen 12 mg/dL (7-17); Calcium 8.3 mg/dL (8.4-10.2); Hemolysis Index 18
--- NOTE | 2019-04-29 09:12 | XRay Report ---
X-RAY G-TUBE STUDY HISTORY: Leaking G-tube FINDINGS: Transplant Worker film of the abdomen demonstrates a PEG tube in the epigastric region. A second image was obtain ed following injection of water-soluble contrast through the PEG tube. Contrast levels in the fundus of the stomach. There is no obvious extravasation of contrast. The small bowel loops are nonopacified . IMPRESSION: No evidence for extravasation. The peg tube appears to terminate in the distal stomach. Signer Name: Zaid Abraham Jr, MD Signed: 04/29/2019 9:08 AM Workstation Name: [id number]
[2019-04-29] MEDS: SODIUM CHLORIDE FLUSH SYRINGE 10 ML IV SCH ×2 (10:06→22:31)
[2019-04-29] MEDS: POTASSIUM CHLORIDE FEEDTUBE SCH (11:14)
[2019-04-29] MEDS ORDERED: PANCREAZE DR 10,500 UNIT FEEDTUBE PRN (14:42)
[2019-04-29] MEDS ORDERED: SIMPLE SYRUP FEEDTUBE PRN ×2 (14:42)
[2019-04-29] MEDS ORDERED: SODIUM BICARBONATE FEEDTUBE PRN (14:42)
--- NOTE | 2019-04-29 15:20 | Progress Note ---
Assessment and Plan Cultures: 04/23 BCx: NGTD 04/23 wound Cx: GNR pending finalization 04/28 wound Cx - GNR, no PMNs A/P:88 yo M PMHx dementia, debility, seizures disorder, chronic pain, and chronic sacral decubitus ulcer admitted with wound infection and osteomyelitis. 1. Acute sepsis - present on admission with leukocytosis and tachycardia (now resolved) due to wound infection 2. Wound infection - GNR growing from wound, but polymicrobial stain. Recommend continuing vancomycin and cefepime pending culture finalization. She is a weekly patient of Dr. Hummel for wound care. For debridement on Sunday. I would continue the IV cefepime and vancomycin pending the debridement and any findings therein. Afterwards, given the cultures growing P mirabilis and Enterococcus would consider de-escalating to Augmentin for discharge. As per below, I do not recommend 6 weeks of IV antibiotics as I do not believe that is in the patient's best interest. 3. Sacral osteomyelitis - Discussed at length with patient's daughter. Discussed that while we can treat the wound infection as above, we are unlikely to be able to clear the osteomyelitis given there is an open wound that likely probes to bone. Even if we are able to "cure" the osteomyelitis, she is likely to become re-infected due to poor source control. I recommended to her that we only treat the wound and bone to avoid futile prolonged antibiotic exposure. I attempted to impress upon her the overall poor prognosis of her mother's condition: that while we can treat the current infection, given the wounds, her advanced age, and debility these infections are likely to recur and there is little chance of preventing them. Strongly recommend they re-consider hospice. 4. Chronic debility 5. Chronic dementia - poor baseline mentation 6. Seizure disorder Recs: - continue cefepime q8h - continue vancomycin dosed per pharmacy. Appreciate their assistance. Goal trough 15-20 - monitor renal function while on vancomycin - Recommend hospice care. - Can de-escalate to Augmentin 875/125mg BID when stable after debridement. Would complete 14 days (stop date: 05/12) from debridement date. - new owund culture with GNR, however no PMNs on culture, indicating whatever is there is either currently being treated or a colonizer. Would not alter treatment plans based on culture result. Thank you for the consult, we will sign off. Please call with questions or if any new issues arise. Grayson Parham MD [facility] ([facility]) M: [phone] O: [phone] F: [phone] Subjective Date of service: 04/29/19 Interval history: No acute change at this time. Debridement completed yesterday. Objective - Exam Narrative Exam: Physical Exam: Constitutional: Awake, disoriented Head, Ears, Nose: Normocephalic, atraumatic. External ears, nose normal Eyes: Conjunctivae/corneas clear. No icterus. No ptosis. Neck: Supple, no meningeal signs Oral: dentition fair, no thrush Cardiovascular: S1, S2 normal. Respiratory: Good air entry, clear to auscultation bilaterally GI: Soft, non-tender; bowel sounds normal. No peritoneal signs. Musculoskeletal: No pedal edema, no cyanosis. bilateral UE contractures. Skin: No rash or abscess Hem/Lymphatic: No palpable cervical or supraclavicular nodes. No lymphangitis Psych: Mood ok. Affect normal Neurological: verbal, incoherent, disoriented. - Constitutional Vitals: Vital Signs Temp Pulse Resp BP Pulse Ox 98.0 F 89 20 100/50 99 04/29/19 13:19 04/29/19 13:19 04/29/19 13:19 04/29/19 13:19 04/29/19 13:19 Temperature -Last 24 Hours Temperature 98.0 F Temperature 98.9 F Temperature 99.3 F Temperature 98.8 F Temperature 98.0 F - Labs CBC & Chem 7: 04/29/19 07:14 04/29/19 07:14 Labs: Abnormal lab results 04/29/19 04/29/19 04/29/19 Range/Units 00:27 05:44 07:14 WBC 11.8 H (4.5-11.0) K/mm3 MCV 78 L (79-97) fl MCH 26 L (28-32) pg Sodium (137-145) mmol/L Potassium (3.6-5.0) mmol/L Creatinine (0.7-1.2) mg/dL Glucose (65-100) mg/dL POC Glucose 137 H 157 H (70-105) Calcium (8.4-10.2) mg/dL 04/29/19 04/29/19 Range/Units 07:14 11:19 WBC (4.5-11.0) K/mm3 MCV (79-97) fl MCH (28-32) pg Sodium 135 L (137-145) mmol/L Potassium 3.1 L (3.6-5.0) mmol/L Creatinine < 0.2 L (0.7-1.2) mg/dL Glucose 129 H (65-100) mg/dL POC Glucose 128 H (70-105) Calcium 8.3 L (8.4-10.2) mg/dL
--- NOTE | 2019-04-29 15:22 | Progress Note ---
Assessment and Plan Assessment and plan: Patient is 88 yo woman with OA, Seizure Disorder, chronically low blood pressure on Midodrine, bedbound state, Dementia, Debility, Anxiety, chronic Pain to Right Hip and Sacral Decubitis Ulcer who presented to [facility] ED with fever of 102.4 F at home and has foul smelling drainage from her sacral wound. Patient was found to have SIRS secondary to Infected Sacral Decubitus Ulcer, Sacral Cellulitis, and Hyponatremia. Patient was in Home Hospice prior to arrival. PEG tube placed on 04/25/19 * Wound cultures (prelim) - klebsiella and proteus * MRI sacrum : Distal sacral/coccygeal osteomylitis, right hip Girdlestone procedure with large fulid collection synovitis and synovitis in the right hip joint space Sepsis Secondary to infected decubitus ulcer: prolong Abx coarse Sacral Osteomyelitis s/p excisional debridement 04/28/2019: d/w GS Pressure ulcer-POA, Unstageable: continue wound care, Patient has indewelling lin catheter secondary to pressure ulcer and urinary incontinence Severe Protein Calorie Malnutrition: GTube feedings and oral feeding per speech therapist, mechanical soft meats Lateral chest wall wound: wound care Osteoarthiritis by history Seizure Disorder by history Hyponatremia: treated with IVF, monitor closely Acute cystitis-POA: treated with abx Dementia by history Bedbound with pressure ulcers and malnutrition by history DVT/GI prophy History Interval history: Patient was seen and examined. Follow-up on current diagnosis Decubitus ulcer. No overnight events reported to me. Patient is nonverbal, Imaging, nursing note, chart, labs and old chart reviewed. Discussed with family friend, Shanelle Archer at bedside. Hospitalist Physical - Physical exam Narrative exam: Gen: WDWN, NAD, Awake, Alert, Orientated HEENT: NCAT, EOMI, PERRL, OP Clear Neck: supple, no adenopathy, no thyromegaly, no JVD CVS/Heart: RRR, normal S1S2, pulses present bilaterally Chest/Lungs: CTA B, Symmetrical chest expansion, good air entry bilaterally GI/Abdomen: soft, NTND, good bowel sounds, no guarding or rebound /Bladder: no suprapubic tenderness, no CVA or paraspinal tenderness Extermity/Skin: no c/c/e, no obvious rash MSK: FROM x 4 Neuro: CN 2-12 grossly intact, no new focal deficits Psych: calm - Constitutional Vitals: Temp Pulse Resp BP Pulse Ox 98.0 F 89 20 100/50 99 04/29/19 13:19 04/29/19 13:19 04/29/19 13:19 04/29/19 13:19 04/29/19 13:19 General appearance: Present: no acute distress Results - Labs CBC & Chem 7: 04/29/19 07:14 04/29/19 07:14 Labs: Laboratory Last Values WBC 11.8 K/mm3 (4.5-11.0) H 04/29/19 07:14 RBC 3.94 M/mm3 (3.65-5.03) 04/29/19 07:14 Hgb 10.1 gm/dl (10.1-14.3) 04/29/19 07:14 Hct 30.9 % (30.3-42.9) 04/29/19 07:14 MCV 78 fl (79-97) L 04/29/19 07:14 MCH 26 pg (28-32) L 04/29/19 07:14 MCHC 33 % (30-34) 04/29/19 07:14 RDW 14.5 % (13.2-15.2) 04/29/19 07:14 Plt Count 309 K/mm3 (140-440) 04/29/19 07:14 Lymph % (Auto) 24.1 % (13.4-35.0) 04/24/19 05:13 [place] % (Auto) 6.9 % (0.0-7.3) 04/24/19 05:13 Eos % (Auto) 2.4 % (0.0-4.3) 04/24/19 05:13 Baso % (Auto) 1.1 % (0.0-1.8) 04/24/19 05:13 Lymph # 2.3 K/mm3 (1.2-5.4) 04/24/19 05:13 [place] # 0.7 K/mm3 (0.0-0.8) 04/24/19 05:13 Eos # 0.2 K/mm3 (0.0-0.4) 04/24/19 05:13 Baso # 0.1 K/mm3 (0.0-0.1) 04/24/19 05:13 Seg Neutrophils % 65.5 % (40.0-70.0) 04/24/19 05:13 Seg Neutrophils # 6.3 K/mm3 (1.8-7.7) 04/24/19 05:13 PT 14.1 Sec. (12.2-14.9) 04/23/19 16:39 INR 1.12 (0.87-1.13) 04/23/19 16:39 APTT 26.0 Sec. (24.2-36.6) 04/23/19 16:39 Sodium 135 mmol/L (137-145) L 04/29/19 07:14 Potassium 3.1 mmol/L (3.6-5.0) L 04/29/19 07:14 Chloride 100.7 mmol/L (98-107) 04/29/19 07:14 Carbon Dioxide 24 mmol/L (22-30) 04/29/19 07:14 13 mmol/L 04/29/19 07:14 BUN 12 mg/dL (7-17) 04/29/19 07:14 < 0.2 mg/dL (0.7-1.2) L 04/29/19 07:14 Estimated GFR > 60 ml/min 04/29/19 07:14 60 % 04/29/19 07:14 Glucose 129 mg/dL (65-100) H 04/29/19 07:14 POC Glucose 128 (70-105) H 04/29/19 11:19 5.3 % (4-6) 04/29/19 07:14 Calcium 8.3 mg/dL (8.4-10.2) L 04/29/19 07:14 2.5 g/dL (3.9-5) L 04/25/19 03:09 0.074 g/L (0.200-0.400) L 04/25/19 03:09 Yellow (Yellow) 04/25/19 09:16 Cloudy (Clear) 04/25/19 09:16 6.0 (5.0-7.0) 04/25/19 09:16 Ur Specific [place] 1.017 (1.003-1.030) 04/25/19 09:16 <15 mg/dl mg/dL (Negative) 04/25/19 09:16 Neg mg/dL (Negative) 04/25/19 09:16 Neg mg/dL (Negative) 04/25/19 09:16 Sm (Negative) 04/25/19 09:16 Neg (Negative) 04/25/19 09:16 Neg (Negative) 04/25/19 09:16 < 2.0 mg/dL (<2.0) 04/25/19 09:16 Ur Leukocyte Esterase Lg (Negative) 04/25/19 09:16 67.0 /HPF (0.0-6.0) H 04/25/19 09:16 17.0 /HPF (0.0-6.0) 04/25/19 09:16 U Epithel Cells (Auto) 3.0 /HPF (0-13.0) 04/25/19 09:16 1+ /HPF (Negative) 04/25/19 09:16 Few /HPF 04/25/19 09:16 Vancomycin Trough 6.3 ug/mL (5.0-20.0) 04/28/19 10:48 Active Medications - Current Medications Current Medications: Generic Name Dose Route Start Last Admin Trade Name Freq PRN Reason Stop Dose Admin Acetaminophen 650 mg 04/23/19 17:37 04/27/19 10:05 Tylenol PO 650 mg Q4H PRN Administration Pain MILD(1-3)/Fever >100.5/GASTELUM Albuterol 2.5 mg 04/23/19 17:37 Proventil IH Q4HRT PRN Shortness Of Breath Lipase/Protease/Amylase 1 each 04/29/19 14:42 Pancreaze 10,500 Unit FEEDTUBE PRN PRN For Clogged Feeding Tube Dextrose 50 ml 04/28/19 07:46 D50w (25gm) Syringe IV PRN PRN Hypoglycemia Heparin Sodium (Porcine) 5,000 unit 04/24/19 14:00 04/29/19 14:39 Heparin SUB-Q 5,000 unit Q8HR DHAVAL Administration Sodium Chloride 1,000 mls @ 75 mls/hr 04/24/19 10:00 04/25/19 09:03 Nacl 0.9% 1000 Ml IV 75 mls/hr DIRECT DHAVAL Administration Dextrose/Sodium Chloride 1,000 mls @ 75 mls/hr 04/24/19 14:00 04/24/19 20:22 D5/0.45ns IV 75 mls/hr DIRECT DHAVAL Administration Sodium Chloride 1,000 mls @ 50 mls/hr 04/25/19 14:00 04/28/19 21:50 Nacl 0.9% 1000 Ml IV 50 mls/hr DIRECT DHAVAL Administration Cefepime HCl 1 gm in 100 mls @ 200 mls/hr 04/25/19 22:00 04/29/19 14:41 Maxipime/Ns 1 Gm/100 Ml IV 200 mls/hr Q8HR DHAVAL Administration Protocol Vancomycin HCl 750 mg/ Sodium 265 mls @ 166.667 mls/hr 04/28/19 16:00 04/29/19 05:38 Chloride IV 166.667 mls/hr Q12H DHAVAL Administration Insulin Human Lispro 0 unit 04/28/19 08:00 04/29/19 11:26 Humalog SUB-Q Not Given Q6HR [facility] Protocol Levetiracetam 1,000 mg 04/27/19 22:00 04/28/19 22:01 Keppra PO 1,000 mg QHS DHAVAL Administration Lorazepam 1 mg 04/25/19 01:00 04/28/19 23:30 Ativan PO Not Given QHS DHAVAL Midodrine 5 mg 04/24/19 08:00 04/29/19 11:43 Proamatine PO Not Given TID@0800,1200,1600 [facility] Ondansetron HCl 4 mg 04/23/19 17:37 04/27/19 00:35 Zofran IV 4 mg Q8H PRN Administration Nausea And Vomiting Polyethylene Glycol 17 gm 04/27/19 10:23 Miralax 3350 PO BID PRN Constipation Potassium Chloride 20 meq 04/26/19 10:00 04/29/19 11:14 Potassium Chloride FEEDTUBE Not Given QDAY DHAVAL Potassium Chloride 40 meq 04/29/19 15:15 Potassium Chloride FEEDTUBE 04/29/19 15:16 ONCE ONE Simple Syrup 15 ml 04/29/19 14:42 Simple Syrup FEEDTUBE PRN PRN Hypoglycemia Simple Syrup 30 ml 04/29/19 14:42 Simple Syrup FEEDTUBE PRN PRN Hypoglycemia Sodium Bicarbonate 325 mg 04/29/19 14:42 Sodium Bicarbonate FEEDTUBE PRN PRN For Clogged Feeding Tube Sodium Chloride 10 ml 04/23/19 22:00 04/29/19 10:06 Sodium Chloride Flush Syringe 10 Ml IV Not Given BID DHAVAL Sodium Chloride 10 ml 04/23/19 17:37 Sodium Chloride Flush Syringe 10 Ml IV PRN PRN LINE FLUSH Sodium Hypochlorite 1 applic 04/24/19 10:23 04/27/19 11:57 Dakin's Half Strength TP 1 applicatio Q12H PRN Administration Wound Care Temazepam 15 mg 04/25/19 01:00 04/28/19 23:30 Restoril PO Not Given QHS [facility] Nutrition/Malnutrition Assess - Dietary Evaluation Nutrition/Malnutrition Findings: Nutrition Notes Start: 04/25/19 12:51 Freq: Status: Active Protocol: Document 04/28/19 15:01 RM (Rec: 04/28/19 15:09 RM [id number]) Nutrition Notes Initial or Follow up Reassessment Current Diagnosis Sepsis,Malnutrition,Stroke Other Pertinent Diagnosis Dementia, Debility, Hyponatremia, muliple wounds, seizure disorder Current Diet NPO Labs/Tests Reviewed Pertinent Medications Zofran Height 5 ft Weight 61 kg [place] Body Weight (kg) 45.45 BMI 26.2 Subjective/Other Information Pt not in room and no TF formula hanging. TF on hold at time of visit for wound debridement. Case management stated pt planned to D/C and tomorrow requested bolus regemin for home. Burn Absent Trauma Absent Minimum of two criteria Yes Body Fat Depletion Mild depletion (non-severe) Muscle Mass Moderate Depletion (severe) #3 Nutrition Diagnosis Increased nutrient needs ( specify in comment below) Diagnosis Progress(for reassessment Continues documentation) #2 Nutrition Diagnosis Inadequate oral intake Diagnosis Progress(for reassessment Continues documentation) #1 Nutrition Diagnosis Malnutrition Diagnosis Progress(for reassessment Continues documentation) Is patient on ventilator? No Is Patient Ambulatory and/or Out of Bed No REE-([place]-confined to bed) 1161.516 Kcal/Kg value to use for calculation 25 Approximate Energy Requirements Using 1525 kcal/Kg Calculation Used for Recommendations Kcal/kg Additional Notes Protein needs are 69-86g (1.2- 1.5g/kg) Fluid needs are 1ml/kcal Nutrition Intervention Nutrition Support: 5 cartons Jevity 1.2 daily: 1 carton every 3 hours from 8 am to 8 pm. Water flush of 50 mls before and after each feeding. Kcal 1,425 Protein (gm) 66 Fluid (mL) 955 Add Supplement/Snack (indicate name/kcal Regan BID /protein ) Provides kCal: 190 Provides Protein (gm) 5 Goal #1 Meet at least 75% of calorie and protein needs via TF Goal #2 Wound healing Anticipated Discharge Needs: TF with Regan BID Follow-Up By: 05/01/19 Additional Comments Follow for POC
[2019-04-29] MEDS ORDERED: POTASSIUM CHLORIDE FEEDTUBE ONE (16:15)
--- NOTE | 2019-04-29 17:58 | Progress Note ---
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 Plan: 1. continue dakins to wound daily and upon discharge 2. offloading 3. continue nutritional support with TF 4. add reglan for gastric motility 5. prn pain control 6. abx per ID 7. follow up in wound care clinic on dc will s/o. Thank you, please call with questions. Subjective Date of service: 04/29/19 Narrative: Pt seen and examined. c/o some pain of right hip. Has been positioned on right hip at this time to offload sacrum. Per nursing, patient having leakage from PEG tube site when positioned on left side and flat. No f/c. Objective Vital Signs - 12hr 04/29/19 04/29/19 04/29/19 07:33 10:00 13:19 Temperature 98.9 F 98.0 F Pulse Rate 91 H 85 89 Respiratory 20 18 20 Rate Blood Pressure 99/54 100/50 O2 Sat by Pulse 100 99 Oximetry - General physical appearance Narrative Exam: Gen: Awake and alert, NAD CV; s1, S2+ resp: even and unlabored Abd: TF running via PEG Ext: contracted - Labs 04/29/19 07:14 04/29/19 07:14 Diabetes panel 04/29/19 04/29/19 Range/Units 07:14 07:14 Sodium 135 L (137-145) mmol/L Potassium 3.1 L (3.6-5.0) mmol/L Chloride 100.7 (98-107) mmol/L Carbon Dioxide 24 (22-30) mmol/L BUN 12 (7-17) mg/dL Creatinine < 0.2 L (0.7-1.2) mg/dL Glucose 129 H (65-100) mg/dL Hemoglobin A1c 5.3 (4-6) % Calcium 8.3 L (8.4-10.2) mg/dL Calcium panel 04/29/19 Range/Units 07:14 Calcium 8.3 L (8.4-10.2) mg/dL Pituitary panel 04/29/19 Range/Units 07:14 Sodium 135 L (137-145) mmol/L Potassium 3.1 L (3.6-5.0) mmol/L Chloride 100.7 (98-107) mmol/L Carbon Dioxide 24 (22-30) mmol/L BUN 12 (7-17) mg/dL Creatinine < 0.2 L (0.7-1.2) mg/dL Glucose 129 H (65-100) mg/dL Calcium 8.3 L (8.4-10.2) mg/dL Adrenal panel 04/29/19 Range/Units 07:14 Sodium 135 L (137-145) mmol/L Potassium 3.1 L (3.6-5.0) mmol/L Chloride 100.7 (98-107) mmol/L Carbon Dioxide 24 (22-30) mmol/L BUN 12 (7-17) mg/dL Creatinine < 0.2 L (0.7-1.2) mg/dL Glucose 129 H (65-100) mg/dL Calcium 8.3 L (8.4-10.2) mg/dL
[2019-04-29] MEDS: NACL 0.9% 1000 ML 1,000 ML IV SCH (20:14)
[2019-04-29] MEDS: RESTORIL PO SCH (22:28)
[2019-04-29] MEDS: KEPPRA PO SCH (22:28)
[2019-04-29] MEDS: ATIVAN PO SCH (22:28)
[2019-04-29] MEDS: REGLAN IV SCH (22:30)
[2019-04-30] MEDS: DAKIN'S HALF STRENGTH TP PRN (00:20)
[2019-04-30] MEDS: HumaLOG SUB-Q SCH ×4 (00:37→17:53)
[2019-04-30] MEDS: VANCOMYCIN 750 MG in NACL 0.9% 250ML 250 ML IV SCH ×2 (04:53→15:28)
[2019-04-30] MEDS: HEPARIN SUB-Q SCH ×3 (06:08→21:59)
[2019-04-30] MEDS: REGLAN IV SCH ×3 (06:09→22:00)
[2019-04-30] MEDS: MAXIPIME/NS 1 GM/100 ML 1 GM/100 ML BAG IV SCH ×3 (07:10→21:58)
[2019-04-30] MEDS: TYLENOL PO PRN ×2 (07:58→20:19)
[2019-04-30] MEDS: PROAMATINE PO SCH ×3 (08:07→17:34)
[2019-04-30] MEDS: POTASSIUM CHLORIDE FEEDTUBE SCH (09:45)
[2019-04-30] MEDS: SODIUM CHLORIDE FLUSH SYRINGE 10 ML IV SCH ×2 (10:39→22:01)
--- NOTE | 2019-04-30 13:25 | Progress Note ---
Assessment and Plan 1. G-tube site leakage - only if pt in L lateral position, not in R lateral. G-tube study done, and tube in good position. Leakage due to poor healing due to malnutrition. - advised to keep in R lateral decubitus position, and with head elevated during feedings. Stop TF for ~ 1 hr if placed in L lateral decubitus position. - if keeps leaking, may need to replace G-tube in different location. Subjective Date of service: 04/30/19 Interval history: Pt seen 04/29, note placed today. Asked to see pt for leakage from G-tube site. 2 daughters and 2 RNs in room. They state that towel gets soaked with drainage if pt in L lateral decubitus position while tube feeding. Otherwise, TF goes in well. No F/C/NS, abd pain. Objective - Constitutional Vitals: Vital Signs - 12hr 04/30/19 04/30/19 04/30/19 07:30 10:00 12:39 Temperature 102.3 F H 99.4 F Pulse Rate 110 H 96 H 96 H Respiratory 18 18 Rate Blood Pressure 107/47 97/58 O2 Sat by Pulse 97 100 Oximetry General appearance: Present: no acute distress - EENT Eyes: PERRL, EOM intact ENT: hearing intact - Gastrointestinal General gastrointestinal: Present: soft, non-tender, other (G-tube site clean, NT, no erythema. G-tube in good position. Was able to express clear fluid with pressure, while pt in L lateral decubitus position.) - Labs CBC & Chem 7: 04/29/19 07:14 04/29/19 07:14 Labs: Abnormal lab results 04/29/19 04/30/19 04/30/19 Range/Units 17:53 00:35 11:46 POC Glucose 149 H 166 H 127 H (70-105) Medications & Allergies - Medications Allergies/Adverse Reactions: Allergies quetiapine [From Seroquel] Adverse Reaction (Verified 04/28/19 11:32) Swelling Home Medications: Home Medications Medication Instructions Recorded Confirmed Last Taken Type LORazepam [Ativan] 1 mg PO QHS 03/06/19 04/24/19 04/22/19 History Melatonin [Melatonin 10MG TAB] 10 mg PO QHS 03/06/19 04/23/19 04/22/19 History Temazepam [Restoril] 15 mg PO QHS PRN 03/06/19 04/23/19 04/22/19 History levETIRAcetam [Keppra TAB] 1,000 mg PO QHS 03/06/19 04/27/19 04/22/19 History Midodrine [Proamatine] 5 mg PO TID@0800,1200,1600 #90 03/08/19 04/23/19 04/22/19 Rx tablet Potassium Chloride [K-Dur] 20 meq PO QDAY #30 tablet 03/08/19 04/23/19 04/22/19 Rx Amoxicillin/K Clav Tab [Augmentin 1 tab PO Q12HR #28 tab 04/28/19 Unknown Rx 875MG TAB] HYDROcodone/APAP 7.5-325 [[place] 7.5 - 325 mg PO Q6H #14 tablet 04/28/19 Unknown Rx 7.5-325 mg TAB] Active Medications: Generic Name Dose Route Start Last Admin Trade Name Freq PRN Reason Stop Dose Admin Acetaminophen 650 mg 04/23/19 17:37 04/30/19 07:58 Tylenol PO 650 mg Q4H PRN Administration Pain MILD(1-3)/Fever >100.5/GASTELUM Albuterol 2.5 mg 04/23/19 17:37 Proventil IH Q4HRT PRN Shortness Of Breath Lipase/Protease/Amylase 1 each 04/29/19 14:42 Pancreaze 10,500 Unit FEEDTUBE PRN PRN For Clogged Feeding Tube Dextrose 50 ml 04/28/19 07:46 D50w (25gm) Syringe IV PRN PRN Hypoglycemia Heparin Sodium (Porcine) 5,000 unit 04/24/19 14:00 04/30/19 13:00 Heparin SUB-Q 5,000 unit Q8HR DHAVAL Administration Dextrose/Sodium Chloride 1,000 mls @ 75 mls/hr 04/24/19 14:00 04/24/19 20:22 D5/0.45ns IV 75 mls/hr DIRECT DHAVAL Administration Sodium Chloride 1,000 mls @ 50 mls/hr 04/25/19 14:00 04/29/19 20:14 Nacl 0.9% 1000 Ml IV 50 mls/hr DIRECT DHAVAL Administration Cefepime HCl 1 gm in 100 mls @ 200 mls/hr 04/25/19 22:00 04/30/19 13:00 Maxipime/Ns 1 Gm/100 Ml IV 200 mls/hr Q8HR DHAVAL Administration Protocol Vancomycin HCl 750 mg/ Sodium 265 mls @ 166.667 mls/hr 04/28/19 16:00 04/30/19 04:53 Chloride IV 166.667 mls/hr Q12H DHAVAL Administration Insulin Human Lispro 0 unit 04/28/19 08:00 04/30/19 12:18 Humalog SUB-Q Not Given Q6HR DHAVAL Protocol Levetiracetam 1,000 mg 04/27/19 22:00 04/29/19 22:28 Keppra PO 1,000 mg QHS DHAVAL Administration Lorazepam 1 mg 04/25/19 01:00 04/29/19 22:28 Ativan PO 1 mg QHS DHAVAL Administration Metoclopramide HCl 5 mg 04/29/19 22:00 04/30/19 06:09 Reglan IV 5 mg Q8H DHAVAL Administration Midodrine 5 mg 04/24/19 08:00 04/30/19 12:54 Proamatine PO 5 mg TID@0800,1200,1600 DHAVAL Administration Ondansetron HCl 4 mg 04/23/19 17:37 04/27/19 00:35 Zofran IV 4 mg Q8H PRN Administration Nausea And Vomiting Polyethylene Glycol 17 gm 04/27/19 10:23 Miralax 3350 PO BID PRN Constipation Potassium Chloride 20 meq 04/26/19 10:00 04/30/19 09:45 Potassium Chloride FEEDTUBE 20 meq QDAY DHAVAL Administration Simple Syrup 15 ml 04/29/19 14:42 Simple Syrup FEEDTUBE PRN PRN Hypoglycemia Simple Syrup 30 ml 04/29/19 14:42 Simple Syrup FEEDTUBE PRN PRN Hypoglycemia Sodium Bicarbonate 325 mg 04/29/19 14:42 Sodium Bicarbonate FEEDTUBE PRN PRN For Clogged Feeding Tube Sodium Chloride 10 ml 04/23/19 22:00 04/30/19 10:39 Sodium Chloride Flush Syringe 10 Ml IV Not Given BID DHAVAL Sodium Chloride 10 ml 04/23/19 17:37 Sodium Chloride Flush Syringe 10 Ml IV PRN PRN LINE FLUSH Sodium Hypochlorite 1 applic 04/24/19 10:23 04/30/19 00:20 Dakin's Half Strength TP 1 applicatio Q12H PRN Administration Wound Care Temazepam 15 mg 04/25/19 01:00 04/29/19 22:28 Restoril PO 15 mg QHS DHAVAL Administration
--- NOTE | 2019-04-30 14:08 | Progress Note ---
Assessment and Plan Assessment and plan: Patient is 88 yo woman with OA, Seizure Disorder, chronically low blood pressure on Midodrine, bedbound state, Dementia, Debility, Anxiety, chronic Pain to Right Hip and Sacral Decubitis Ulcer who presented to [facility] ED with fever of 102.4 F at home and has foul smelling drainage from her sacral wound. Patient was found to have SIRS secondary to Infected Sacral Decubitus Ulcer, Sacral Cellulitis, and Hyponatremia. Patient was in Home Hospice prior to arrival. PEG tube placed on 04/25/19 * Wound cultures (prelim) - klebsiella and proteus * MRI sacrum : Distal sacral/coccygeal osteomylitis, right hip Girdlestone procedure with large fulid collection synovitis and synovitis in the right hip joint space Sepsis Secondary to infected decubitus ulcer: prolong Abx coarse Sacral Osteomyelitis s/p excisional debridement 04/28/2019: d/w GS Pressure ulcer Unstageable, poa: continue wound care, Patient has indewelling lin catheter secondary to pressure ulcer and urinary incontinence Severe Protein Calorie Malnutrition: GTube feedings and oral feeding per speech therapist, mechanical soft meats Lateral chest wall wound: wound care Osteoarthiritis by history Seizure Disorder by history Hyponatremia: treated with IVF, monitor closely Acute cystitis-POA: treated with abx Dementia by history Bedbound with pressure ulcers and malnutrition by history DVT/GI prophy History Interval history: Patient was seen and examined. Follow-up on current diagnosis Decubitus ulcer. No overnight events reported to me but patient spiked a 102.3F d/w Dr. Parham, ID, watch closely for another temp spike. Patient is nonverbal, Imaging, nursing note, chart, labs and old chart reviewed. Discussed with family friend, Shanelle Archer at bedside. Hospitalist Physical - Physical exam Narrative exam: Gen: WDWN, NAD, Awake, Alert, Orientated HEENT: NCAT, EOMI, PERRL, OP Clear Neck: supple, no adenopathy, no thyromegaly, no JVD CVS/Heart: RRR, normal S1S2, pulses present bilaterally Chest/Lungs: CTA B, Symmetrical chest expansion, good air entry bilaterally GI/Abdomen: soft, NTND, good bowel sounds, no guarding or rebound /Bladder: no suprapubic tenderness, no CVA or paraspinal tenderness Extermity/Skin: no c/c/e, no obvious rash MSK: FROM x 4 Neuro: CN 2-12 grossly intact, no new focal deficits Psych: calm - Constitutional Vitals: Temp Pulse Resp BP Pulse Ox 99.4 F 96 H 18 97/58 100 04/30/19 12:39 04/30/19 12:39 04/30/19 12:39 04/30/19 12:39 04/30/19 12:39 General appearance: Present: no acute distress Results - Labs CBC & Chem 7: 04/29/19 07:14 04/29/19 07:14 Labs: Laboratory Last Values WBC 11.8 K/mm3 (4.5-11.0) H 04/29/19 07:14 RBC 3.94 M/mm3 (3.65-5.03) 04/29/19 07:14 Hgb 10.1 gm/dl (10.1-14.3) 04/29/19 07:14 Hct 30.9 % (30.3-42.9) 04/29/19 07:14 MCV 78 fl (79-97) L 04/29/19 07:14 MCH 26 pg (28-32) L 04/29/19 07:14 MCHC 33 % (30-34) 04/29/19 07:14 RDW 14.5 % (13.2-15.2) 04/29/19 07:14 Plt Count 309 K/mm3 (140-440) 04/29/19 07:14 Lymph % (Auto) 24.1 % (13.4-35.0) 04/24/19 05:13 Cache % (Auto) 6.9 % (0.0-7.3) 04/24/19 05:13 Eos % (Auto) 2.4 % (0.0-4.3) 04/24/19 05:13 Baso % (Auto) 1.1 % (0.0-1.8) 04/24/19 05:13 Lymph # 2.3 K/mm3 (1.2-5.4) 04/24/19 05:13 Cache # 0.7 K/mm3 (0.0-0.8) 04/24/19 05:13 Eos # 0.2 K/mm3 (0.0-0.4) 04/24/19 05:13 Baso # 0.1 K/mm3 (0.0-0.1) 04/24/19 05:13 Seg Neutrophils % 65.5 % (40.0-70.0) 04/24/19 05:13 Seg Neutrophils # 6.3 K/mm3 (1.8-7.7) 04/24/19 05:13 PT 14.1 Sec. (12.2-14.9) 04/23/19 16:39 INR 1.12 (0.87-1.13) 04/23/19 16:39 APTT 26.0 Sec. (24.2-36.6) 04/23/19 16:39 Sodium 135 mmol/L (137-145) L 04/29/19 07:14 Potassium 3.1 mmol/L (3.6-5.0) L 04/29/19 07:14 Chloride 100.7 mmol/L (98-107) 04/29/19 07:14 Carbon Dioxide 24 mmol/L (22-30) 04/29/19 07:14 13 mmol/L 04/29/19 07:14 BUN 12 mg/dL (7-17) 04/29/19 07:14 < 0.2 mg/dL (0.7-1.2) L 04/29/19 07:14 Estimated GFR > 60 ml/min 04/29/19 07:14 60 % 04/29/19 07:14 Glucose 129 mg/dL (65-100) H 04/29/19 07:14 POC Glucose 127 (70-105) H 04/30/19 11:46 5.3 % (4-6) 04/29/19 07:14 Calcium 8.3 mg/dL (8.4-10.2) L 04/29/19 07:14 2.5 g/dL (3.9-5) L 04/25/19 03:09 0.074 g/L (0.200-0.400) L 04/25/19 03:09 Yellow (Yellow) 04/25/19 09:16 Cloudy (Clear) 04/25/19 09:16 6.0 (5.0-7.0) 04/25/19 09:16 Ur Specific [place] 1.017 (1.003-1.030) 04/25/19 09:16 <15 mg/dl mg/dL (Negative) 04/25/19 09:16 Neg mg/dL (Negative) 04/25/19 09:16 Neg mg/dL (Negative) 04/25/19 09:16 Sm (Negative) 04/25/19 09:16 Neg (Negative) 04/25/19 09:16 Neg (Negative) 04/25/19 09:16 < 2.0 mg/dL (<2.0) 04/25/19 09:16 Ur Leukocyte Esterase Lg (Negative) 04/25/19 09:16 67.0 /HPF (0.0-6.0) H 04/25/19 09:16 17.0 /HPF (0.0-6.0) 04/25/19 09:16 U Epithel Cells (Auto) 3.0 /HPF (0-13.0) 04/25/19 09:16 1+ /HPF (Negative) 04/25/19 09:16 Few /HPF 04/25/19 09:16 Vancomycin Trough 6.3 ug/mL (5.0-20.0) 04/28/19 10:48 Active Medications - Current Medications Current Medications: Generic Name Dose Route Start Last Admin Trade Name Freq PRN Reason Stop Dose Admin Acetaminophen 650 mg 04/23/19 17:37 04/30/19 07:58 Tylenol PO 650 mg Q4H PRN Administration Pain MILD(1-3)/Fever >100.5/GASTELUM Albuterol 2.5 mg 04/23/19 17:37 Proventil IH Q4HRT PRN Shortness Of Breath Lipase/Protease/Amylase 1 each 04/29/19 14:[address] 10,500 Unit FEEDTUBE PRN PRN For Clogged Feeding Tube Dextrose 50 ml 04/28/19 07:46 D50w (25gm) Syringe IV PRN PRN Hypoglycemia Heparin Sodium (Porcine) 5,000 unit 04/24/19 14:00 04/30/19 13:00 Heparin SUB-Q 5,000 unit Q8HR DHAVAL Administration Dextrose/Sodium Chloride 1,000 mls @ 75 mls/hr 04/24/19 14:00 04/24/19 20:22 D5/0.45ns IV 75 mls/hr DIRECT DHAVAL Administration Sodium Chloride 1,000 mls @ 50 mls/hr 04/25/19 14:00 04/29/19 20:14 Nacl 0.9% 1000 Ml IV 50 mls/hr DIRECT DHAVAL Administration Cefepime HCl 1 gm in 100 mls @ 200 mls/hr 04/25/19 22:00 04/30/19 13:00 Maxipime/Ns 1 Gm/100 Ml IV 200 mls/hr Q8HR DHAVAL Administration Protocol Vancomycin HCl 750 mg/ Sodium 265 mls @ 166.667 mls/hr 04/28/19 16:00 04/30/19 04:53 Chloride IV 166.667 mls/hr Q12H DHAVAL Administration Insulin Human Lispro 0 unit 04/28/19 08:00 04/30/19 12:18 Humalog SUB-Q Not Given Q6HR DHAVAL Protocol Levetiracetam 1,000 mg 04/27/19 22:00 04/29/19 22:28 Keppra PO 1,000 mg QHS DHAVAL Administration Lorazepam 1 mg 04/25/19 01:00 04/29/19 22:28 Ativan PO 1 mg QHS DHAVAL Administration Metoclopramide HCl 5 mg 04/29/19 22:00 04/30/19 06:09 Reglan IV 5 mg Q8H DHAVAL Administration Midodrine 5 mg 04/24/19 08:00 04/30/19 12:54 Proamatine PO 5 mg TID@0800,1200,1600 DHAVAL Administration Ondansetron HCl 4 mg 04/23/19 17:37 04/27/19 00:35 Zofran IV 4 mg Q8H PRN Administration Nausea And Vomiting Polyethylene Glycol 17 gm 04/27/19 10:23 Miralax 3350 PO BID PRN Constipation Potassium Chloride 20 meq 04/26/19 10:00 04/30/19 09:45 Potassium Chloride FEEDTUBE 20 meq QDAY DHAVAL Administration Simple Syrup 15 ml 04/29/19 14:42 Simple Syrup FEEDTUBE PRN PRN Hypoglycemia Simple Syrup 30 ml 04/29/19 14:42 Simple Syrup FEEDTUBE PRN PRN Hypoglycemia Sodium Bicarbonate 325 mg 04/29/19 14:42 Sodium Bicarbonate FEEDTUBE PRN PRN For Clogged Feeding Tube Sodium Chloride 10 ml 04/23/19 22:00 04/30/19 10:39 Sodium Chloride Flush Syringe 10 Ml IV Not Given BID DHAVAL Sodium Chloride 10 ml 04/23/19 17:37 Sodium Chloride Flush Syringe 10 Ml IV PRN PRN LINE FLUSH Sodium Hypochlorite 1 applic 04/24/19 10:23 04/30/19 00:20 Dakin's Half Strength TP 1 applicatio Q12H PRN Administration Wound Care Temazepam 15 mg 04/25/19 01:00 04/29/19 22:28 Restoril PO 15 mg QHS DHAVAL Administration Nutrition/Malnutrition Assess - Dietary Evaluation Nutrition/Malnutrition Findings: Nutrition Notes Start: 04/25/19 12:51 Freq: Status: Active Protocol: Document 04/28/19 15:01 RM (Rec: 04/28/19 15:09 [email or web address]) Nutrition Notes Initial or Follow up Reassessment Current Diagnosis Sepsis,Malnutrition,Stroke Other Pertinent Diagnosis Dementia, Debility, Hyponatremia, muliple wounds, seizure disorder Current Diet NPO Labs/Tests Reviewed Pertinent Medications Zofran Height 5 ft Weight 61 kg [place] Body Weight (kg) 45.45 BMI 26.2 Subjective/Other Information Pt not in room and no TF formula hanging. TF on hold at time of visit for wound debridement. Case management stated pt planned to D/C and tomorrow requested bolus regemin for home. Burn Absent Trauma Absent Minimum of two criteria Yes Body Fat Depletion Mild depletion (non-severe) Muscle Mass Moderate Depletion (severe) #3 Nutrition Diagnosis Increased nutrient needs ( specify in comment below) Diagnosis Progress(for reassessment Continues documentation) #2 Nutrition Diagnosis Inadequate oral intake Diagnosis Progress(for reassessment Continues documentation) #1 Nutrition Diagnosis Malnutrition Diagnosis Progress(for reassessment Continues documentation) Is patient on ventilator? No Is Patient Ambulatory and/or Out of Bed No REE-([facility]-confined to bed) 1161.516 Kcal/Kg value to use for calculation 25 Approximate Energy Requirements Using 1525 kcal/Kg Calculation Used for Recommendations Kcal/kg Additional Notes Protein needs are 69-86g (1.2- 1.5g/kg) Fluid needs are 1ml/kcal Nutrition Intervention Nutrition Support: 5 cartons Jevity 1.2 daily: 1 carton every 4 hours from 8 am to 12 am. Water flush of 50 mls before and after each feeding. Kcal 1,425 Protein (gm) 66 Fluid (mL) 955 Add Supplement/Snack (indicate name/kcal Regan BID /protein ) Provides kCal: 190 Provides Protein (gm) 5 Goal #1 Meet at least 75% of calorie and protein needs via TF Goal #2 Wound healing Anticipated Discharge Needs: TF with Regan BID Follow-Up By: 05/01/19 Additional Comments Follow for POC
[2019-04-30] MEDS: NACL 0.9% 1000 ML 1,000 ML IV SCH (21:56)
[2019-04-30] MEDS: KEPPRA PO SCH (21:59)
[2019-04-30] MEDS: ATIVAN PO SCH (22:00)
[2019-04-30] MEDS: RESTORIL PO SCH (22:01)
[2019-05-01] MEDS: HumaLOG SUB-Q SCH ×3 (00:54→12:25)
[2019-05-01] MEDS: DAKIN'S HALF STRENGTH TP PRN (01:40)
[2019-05-01] MEDS: VANCOMYCIN 750 MG in NACL 0.9% 250ML 250 ML IV SCH (04:15)
[2019-05-01] MEDS: HEPARIN SUB-Q SCH (06:28)
[2019-05-01] MEDS: REGLAN IV SCH (06:28)
[2019-05-01] MEDS: MAXIPIME/NS 1 GM/100 ML 1 GM/100 ML BAG IV SCH (06:29)
[2019-05-01 08:00] VITALS: BP 128/73
[2019-05-01] MEDS: PROAMATINE PO SCH ×2 (08:52→12:25)
[2019-05-01] MEDS: POTASSIUM CHLORIDE FEEDTUBE SCH ×2 (08:52→10:00)
[2019-05-01] MEDS: SODIUM CHLORIDE FLUSH SYRINGE 10 ML IV SCH ×2 (08:53→10:00)
[2019-05-01] MEDS: TYLENOL PO PRN (08:56)
--- NOTE | 2019-05-01 10:42 | Gastroenterology Progress Note ---
Assessment and Plan 1. G-tube site leakage - only if pt in L lateral position, not in R lateral -G-tube study done, and tube in good position -etiology-due to poor healing due to malnutrition -leakage now improved per nursing/family. PEG site w/o s/s of infection or bleeding. Tolerating TFs -no plan to replace G-tube in different location at this time -continue previous recommendations- advised to keep in R lateral decubitus position, and with head elevated during feedings. Stop TF for ~ 1 hr if placed in L lateral decubitus position -TFs per dietary recommendations -continue supportive care -patient to f/u in clinic as needed if leakage persists (discussed with family at bedside) -no further recommendations per GI at this time. Will sign off. Subjective Date of service: 05/01/19 Principal diagnosis: PEG tube eval Interval history: Leaking around PEG now improved. Tolerating TFs. Objective - Constitutional Vitals: Temp Pulse Resp BP Pulse Ox 98.9 F 97 H 18 128/73 99 05/01/19 07:19 05/01/19 07:19 05/01/19 07:19 05/01/19 07:19 05/01/19 08:25 General appearance: no acute distress - Respiratory Respiratory effort: normal - Cardiovascular Rhythm: regular - Gastrointestinal General gastrointestinal: Present: soft, non-distended, other (+PEG (no s/s of infection or bleeding)) - Labs CBC & Chem 7: 04/29/19 07:14 04/29/19 07:14 Labs: Laboratory Results - last 24 hr 04/30/19 04/30/19 05/01/19 11:46 17:25 01:01 POC Glucose 127 H 137 H 97 05/01/19 06:53 POC Glucose 102
--- NOTE | 2019-05-01 12:46 | Discharge Summary ---
Providers - Providers Date of Admission: 04/23/19 17:38 Date of discharge: 05/01/19 Attending physician: KERA BURTON 04/23/19 18:25 Consult to Wound/ET Nurse [CONS] Routine Reason For Exam: wound eval 04/24/19 09:56 Consult to Physician [CONS] Routine Comment: called office/ shahana Consulting Provider: PAULO HOUSTON Physician Instructions: Reason For Exam: infected decub ulcer 04/24/19 13:31 Consult to Dietitian/Nutrition [CONS] Routine Physician Instructions: Reason For Exam: Reason for Consult: Malnutrition 04/25/19 07:22 Consult to Physician [CONS] Routine Comment: Consulting Provider: BETTYE MINOR Physician Instructions: Reason For Exam: SPESIS 04/25/19 11:08 Consult to Physician [CONS] Routine Comment: Consulting Provider: TONI LEVINE Physician Instructions: Reason For Exam: PEG tube eval 04/25/19 15:06 Consult to Dietitian/Nutrition [CONS] Routine Physician Instructions: Reason For Exam: Reason for Consult: post-peg 04/29/19 08:28 Speech Therapy Evaluation and Treat [CONS] Routine Reason For Exam: dysphagia 04/29/19 12:51 Consult to Wound/ET Nurse [CONS] Urgent Reason For Exam: wound eval post debridement 04/30/19 08:38 Consult to Physician [CONS] Routine Comment: DANIELA Consulting Provider: CYNTHIA HOWARD Physician Instructions: CONSULT WAS CALLED TO /JEANCARLOS Reason For Exam: s/p PEG tube, evaluate for leakage Primary care physician: KIET VALLEJO Hospitalization Condition: Fair Hospital course: Patient is a 88 yo woman with OA, Seizure Disorder, chronically low blood pressure on Midodrine, bedbound state, Dementia, Debility, Anxiety, chronic Pain to Right Hip, contractures and Sacral Decubitis Ulcer who presented to [facility] ED with fever of 102.4 F at home and has foul smelling drainage from her sacral wound. Patient was found to have SIRS secondary to Infected Sacral Decubitus Ulcer, Sacral Cellulitis, and Hyponatremia. Patient was in Home Hospice prior to arrival. PEG tube placed on 04/25/19. Patient was on home hospice but taking out of Hospice. Wound cultures (prelim) - klebsiella and proteus MRI sacrum : Distal sacral/coccygeal osteomylitis, right hip Girdlestone procedure with large fluid collection synovitis and synovitis in the right hip joint space Discharge Diagnoses: Sepsis Secondary to infected decubitus ulcer: prolong Abx coarse Sacral Osteomyelitis s/p excisional debridement 04/28/2019: d/w GS Pressure ulcer Unstageable, poa: continue wound care, Patient has indwelling lin catheter secondary to pressure ulcer and urinary incontinence Severe Protein Calorie Malnutrition: GTube feedings and oral feeding per speech therapist, mechanical soft meats Lateral chest wall wound: wound care Osteoarthritis by history Seizure Disorder by history Hyponatremia: treated with IVF, monitor closely Acute cystitis-POA: treated with abx Dementia by history Bedbound with pressure ulcers and malnutrition by history Dysphagia related to odynophagia, poa, poor calorie intake, failure to thrive and severe malnutrition, poa s/p PEG tube placement Severe malnutrition, poa Disposition: DC/TX- HOME UNDER HOME [facility] Time spent for discharge: 31 minutes Core Measure Documentation - Palliative Care Palliative Care/ Comfort Measures: Not Applicable - Core Measures Any of the following diagnoses?: none - VTE Discharge Requirements Deep Vein Thrombosis/Pulmonary Embolism Present on Admission: No Has pt received <5 days of overlap therapy or INR<2.0: No Anticoagulant overlap therapy prescribed at discharge: No Contraindication No Overlap Therapy order at DC: Not Indicated Exam - Physical Exam Narrative exam: Gen: WDWN, NAD, Awake, Alert, Orientated HEENT: NCAT, EOMI, PERRL, OP Clear Neck: supple, no adenopathy, no thyromegaly, no JVD CVS/Heart: RRR, normal S1S2, pulses present bilaterally Chest/Lungs: CTA B, Symmetrical chest expansion, good air entry bilaterally GI/Abdomen: soft, NTND, good bowel sounds, no guarding or rebound /Bladder: no suprapubic tenderness, no CVA or paraspinal tenderness Extermity/Skin: no c/c/e, no obvious rash MSK: FROM x 4 Neuro: CN 2-12 grossly intact, no new focal deficits Psych: calm - Constitutional Vitals: Temp Pulse Resp BP Pulse Ox 98.9 F 97 H 18 128/73 99 05/01/19 07:19 05/01/19 10:00 05/01/19 07:19 05/01/19 07:19 05/01/19 08:25 Plan Activity: other (no strenous activity unless cleared by PCP) Diet: per dietitian instruction (mechanical soft), other (5 Cartons of Jevity 1.2) Follow up with: BETTYE MINOR MD [Staff Physician] - 7 Days PAULO HOUSTON DO [Staff Physician] - 7 Days KIET VALLEJO MD [Primary Care Provider] - 3-5 Days Prescriptions: Amoxicillin/K Clav Tab [Augmentin 875MG TAB] 1 tab PO Q12HR #28 tab Cefuroxime Axetil [Ceftin] 500 mg FEEDTUBE BID 11 Days ml HYDROcodone/APAP 7.5-325 [[place] 7.5-325 mg TAB] 7.5 - 325 mg PO Q6H #14 tablet Midodrine [Proamatine] 5 mg PO TID@0800,1200,1600 #90 tablet
== END 2019-05-01 16:38 | disposition home health service (06) | DRG 853 ==
LOC: ED 13:43 → 2B-ACE 17:38
PROVIDERS: ADMIT Internal Medicine; ATTEND Internal Medicine
PROC: 0DH63UZ Insertion of Feeding Device into Stomach, Percutaneous Approach (ICD-10-PCS; 2019-04-25)
PROC: 0QB10ZZ Excision of Sacrum, Open Approach (ICD-10-PCS; principal; 2019-04-28)
PROC: 0JB60ZZ Excision of Chest Subcutaneous Tissue and Fascia, Open Approach (ICD-10-PCS; 2019-04-28)
DX: A41.89 Other specified sepsis (principal); L89.154 Pressure ulcer of sacral region, stage 4; E43 Unspecified severe protein-calorie malnutrition; L03.312 Cellulitis of back [any part except buttock and flank]; E87.1 Hypo-osmolality and hyponatremia; N30.00 Acute cystitis without hematuria; M86.8X8 Other osteomyelitis, other site; K94.29 Other complications of gastrostomy; K44.9 Diaphragmatic hernia without obstruction or gangrene; K29.70 Gastritis, unspecified, without bleeding; R13.10 Dysphagia, unspecified; M19.90 Unspecified osteoarthritis, unspecified site; G40.909 Epilepsy, unspecified, not intractable, without status epilepticus; F03.90 Unspecified dementia, unspecified severity, without behavioral disturbance, psychotic disturbance, mood disturbance, and anxiety; F41.9 Anxiety disorder, unspecified; G89.29 Other chronic pain; M25.551 Pain in right hip; R32 Unspecified urinary incontinence; L08.9 Local infection of the skin and subcutaneous tissue, unspecified; Z96.649 Presence of unspecified artificial hip joint; Z96.659 Presence of unspecified artificial knee joint; Z86.73 Personal history of transient ischemic attack (TIA), and cerebral infarction without residual deficits; Z74.01 Bed confinement status; Z90.49 Acquired absence of other specified parts of digestive tract; Z82.49 Family history of ischemic heart disease and other diseases of the circulatory system; Z88.5 Allergy status to narcotic agent; Z79.899 Other long term (current) drug therapy
CPT/HCPCS: 36415; 71045; 72197; 74018; 80048; 80202; 81001; 82040; 82962; 83036; 84134; 85025; 85027; 85610; 85730; 87040; 87076; 87086; 87116; 87186; 94640; 94760; 96365; 96375; G0378; A6260; A9577; J0690; J0692; J1644; J1815; J2270; J2370; J2405; J2704; J2765; J3010; J3370; J7030; J7050; Q9967

== ENCOUNTER 2019-05-26 09:52 | Outpatient (CLI) | payer MEDICARE ==
[~2019-05-26 09:52] MED LIST: BUPIVACAINE/PF (0.5%) 5 MG/1 ML 30 ML VIAL INFILTRATI ONE; LACTATED RINGERS 1,000 ML ONE; LIDOCAINE (1%) 10 MG/1 ML VIAL 20 ML MDV ONE
[2019-05-26] MEDS ORDERED: SILVER NITRATE APPLICATOR 1 EA TP ONE (10:11)
[2019-05-26] MEDS ORDERED: LIDOCAINE (4%) 40 MG/ML TOPICAL SOLN 50 ML BOTTLE TP ONE (10:11)
== END 2019-05-26 09:53 | disposition home or self-care (01) ==
LOC: WOUND 09:52
PROVIDERS: ATTEND Surgery
DX: L89.154 Pressure ulcer of sacral region, stage 4 (principal); L89.133 Pressure ulcer of right lower back, stage 3; L89.890 Pressure ulcer of other site, unstageable; F01.50 Vascular dementia, unspecified severity, without behavioral disturbance, psychotic disturbance, mood disturbance, and anxiety; M06.9 Rheumatoid arthritis, unspecified
CPT/HCPCS: 11042; 11045; 97605; J7120

== ENCOUNTER 2019-06-02 10:01 | Outpatient (CLI) | payer MEDICARE ==
[2019-06-02] MEDS ORDERED: SILVER NITRATE TP ONE (10:06)
[2019-06-02] MEDS ORDERED: XYLOCAINE TOPICAL 4% TP ONE (10:06)
== END 2019-06-02 10:02 | disposition home or self-care (01) ==
LOC: WOUND 10:01
PROVIDERS: ATTEND Surgery
DX: L89.154 Pressure ulcer of sacral region, stage 4 (principal); L89.133 Pressure ulcer of right lower back, stage 3; L89.890 Pressure ulcer of other site, unstageable; F01.50 Vascular dementia, unspecified severity, without behavioral disturbance, psychotic disturbance, mood disturbance, and anxiety; E43 Unspecified severe protein-calorie malnutrition; M06.9 Rheumatoid arthritis, unspecified
CPT/HCPCS: 97606

== ENCOUNTER 2019-06-09 10:31 | Outpatient (CLI) | payer MEDICARE ==
[2019-06-09] MEDS ORDERED: XYLOCAINE TOPICAL 4% TP ONE (11:42)
== END 2019-06-09 10:32 | disposition home or self-care (01) ==
LOC: WOUND 10:31
PROVIDERS: ATTEND Surgery
DX: L89.154 Pressure ulcer of sacral region, stage 4 (principal); L89.133 Pressure ulcer of right lower back, stage 3; L89.890 Pressure ulcer of other site, unstageable; F01.50 Vascular dementia, unspecified severity, without behavioral disturbance, psychotic disturbance, mood disturbance, and anxiety; E43 Unspecified severe protein-calorie malnutrition; M06.9 Rheumatoid arthritis, unspecified
CPT/HCPCS: 97605

== ENCOUNTER 2019-06-16 10:26 | Outpatient (CLI) | payer MEDICARE ==
[2019-06-16] MEDS ORDERED: LIDOCAINE (4%) 40 MG/ML TOPICAL SOLN 50 ML BOTTLE TP ONE (10:53)
== END 2019-06-16 10:27 | disposition home or self-care (01) ==
LOC: WOUND 10:26
PROVIDERS: ATTEND Surgery
DX: L89.154 Pressure ulcer of sacral region, stage 4 (principal); L89.133 Pressure ulcer of right lower back, stage 3; L89.899 Pressure ulcer of other site, unspecified stage; E43 Unspecified severe protein-calorie malnutrition; F01.50 Vascular dementia, unspecified severity, without behavioral disturbance, psychotic disturbance, mood disturbance, and anxiety; M06.9 Rheumatoid arthritis, unspecified; Z96.653 Presence of artificial knee joint, bilateral; Z96.641 Presence of right artificial hip joint
CPT/HCPCS: 97605

== ENCOUNTER 2019-06-23 10:56 | Outpatient (CLI) | payer MEDICARE ==
[2019-06-23] MEDS ORDERED: LIDOCAINE (4%) 40 MG/ML TOPICAL SOLN 50 ML BOTTLE TP ONE (11:22)
== END 2019-06-23 10:57 | disposition home or self-care (01) ==
LOC: WOUND 10:56
PROVIDERS: ATTEND Surgery
DX: L89.154 Pressure ulcer of sacral region, stage 4 (principal); L89.133 Pressure ulcer of right lower back, stage 3; L89.899 Pressure ulcer of other site, unspecified stage; E43 Unspecified severe protein-calorie malnutrition; F01.50 Vascular dementia, unspecified severity, without behavioral disturbance, psychotic disturbance, mood disturbance, and anxiety; M06.9 Rheumatoid arthritis, unspecified; Z96.653 Presence of artificial knee joint, bilateral; Z96.641 Presence of right artificial hip joint
CPT/HCPCS: 97605

== ENCOUNTER 2019-06-30 10:39 | Outpatient (CLI) | payer MEDICARE ==
[2019-06-30] MEDS ORDERED: LIDOCAINE (4%) 40 MG/ML TOPICAL SOLN 50 ML BOTTLE TP ONE (11:52)
== END 2019-06-30 10:40 | disposition home or self-care (01) ==
LOC: WOUND 10:39
PROVIDERS: ATTEND Surgery
DX: L89.154 Pressure ulcer of sacral region, stage 4 (principal); L89.133 Pressure ulcer of right lower back, stage 3; L89.899 Pressure ulcer of other site, unspecified stage; E43 Unspecified severe protein-calorie malnutrition; F01.50 Vascular dementia, unspecified severity, without behavioral disturbance, psychotic disturbance, mood disturbance, and anxiety; M06.9 Rheumatoid arthritis, unspecified; Z96.653 Presence of artificial knee joint, bilateral; Z96.641 Presence of right artificial hip joint
CPT/HCPCS: 97605

== ENCOUNTER 2019-07-21 10:43 | Outpatient (CLI) | payer MEDICARE ==
[2019-07-21] MEDS ORDERED: LIDOCAINE (4%) 40 MG/ML TOPICAL SOLN 50 ML BOTTLE TP ONE (11:57)
== END 2019-07-21 10:44 | disposition home or self-care (01) ==
LOC: WOUND 10:43
PROVIDERS: ATTEND Surgery
DX: L89.154 Pressure ulcer of sacral region, stage 4 (principal); L89.133 Pressure ulcer of right lower back, stage 3; L89.899 Pressure ulcer of other site, unspecified stage; E43 Unspecified severe protein-calorie malnutrition; F01.50 Vascular dementia, unspecified severity, without behavioral disturbance, psychotic disturbance, mood disturbance, and anxiety; M06.9 Rheumatoid arthritis, unspecified; Z96.653 Presence of artificial knee joint, bilateral; Z96.641 Presence of right artificial hip joint
CPT/HCPCS: 97605

== ENCOUNTER 2019-08-04 10:18 | Outpatient (CLI) | payer MEDICARE ==
[2019-08-04] MEDS ORDERED: LIDOCAINE (4%) 40 MG/ML TOPICAL SOLN 50 ML BOTTLE TP ONE (10:49)
== END 2019-08-04 10:19 | disposition home or self-care (01) ==
LOC: WOUND 10:18
PROVIDERS: ATTEND Surgery
DX: L89.154 Pressure ulcer of sacral region, stage 4 (principal); L89.133 Pressure ulcer of right lower back, stage 3; L89.893 Pressure ulcer of other site, stage 3; E43 Unspecified severe protein-calorie malnutrition; M06.9 Rheumatoid arthritis, unspecified; F01.50 Vascular dementia, unspecified severity, without behavioral disturbance, psychotic disturbance, mood disturbance, and anxiety; Z93.3 Colostomy status
CPT/HCPCS: 97605